=== PATIENT | male | born 1940 | race Caucasian/White ===

== ENCOUNTER 2017-02-18 12:04 | Inpatient (IN) | payer MEDICARE, BC ==
[2017-02-18] MEDS ORDERED: PIPERACILLIN-TAZOBACTAM 3.375 GM in DEXTROSE/WATER 1 50ML.BAG IVPB STA (12:22)
[2017-02-18] MEDS ORDERED: ACETAMINOPHEN TAB 500 MG TAB PO STA (12:22)
[2017-02-18] MEDS: SODIUM CHLORIDE 0.9% 500 ML IV SCH ×3 (12:30→15:17)
[2017-02-18 13:22] LABS: Anisocytosis Slight; Appearance,Urine Clear (Clear); Aty Lym Flag Moderate; Bilirubin,Urine Negative (Negative); CH 31.6; CHCM 33.2; Glucose,Urine (UA) Negative (Negative); HCT 31.6 % (39.0-53.0); HDW 3.16; HGB 10.2 gm/dL (13.0-17.5); Ketones,Urine Negative (Negative); Leukocyte Esterase,Urine Negative (Negative); MCH 31.1 pg (25.0-35.0); MCHC 32.3 g/dL (31.0-37.0); MCV 96.3 fL (80.0-100.0); Macrocytosis Slight; Mean Platelet Volume 9.2; Nitrite,Urine Negative (Negative); PH, Urine 5.5 (5.0-8.0); Particle Count 1425; Protein,Urine 1+ (Negative); RBC 3.28 m/uL (4.30-5.90); RBC,Urine 1 /hpf (0-5); RDW 19.3 % (11.5-15.5); Specific Gravity,Urine 1.006 (1.001-1.035); Squamous Epithelial Cell,Urine <1 /hpf (0-4); UA Billing (MACRO vs. MICRO) MICRO; Urobilinogen,Urine <2.0 mg/dL (<2.0); WBC (Perox) 0.96; WBC,Urine 2 /hpf (0-5)
[2017-02-18 13:26] LABS: WBC 0.8 k/uL (3.8-10.6)
[2017-02-18 13:29] LABS: INR 1.7 (<1.2); Partial Thromboplastin Time 23.2 sec (22.0-30.0); Prothrombin Time 16.1 sec (9.0-12.0)
[2017-02-18 13:38] LABS: Add Differential Manual Differential
--- NOTE | 2017-02-18 14:13 | ED ---
General Adult HPI - General Chief complaint: Shortness of Breath Stated complaint: VONDA Time Seen by Provider: 02/18/17 12:07 Source: EMS Mode of arrival: EMS Limitations: no limitations - History of Present Illness Initial comments: 76-year-old gentleman with a history of lung cancer (mother fever that was greater than 103, he had a chill 0 Vicryl is his lost cancer treatment was about a week ago. Denies any headache no neck stiffness no chest pain was short winded earlier today according to the) non-at this time abdomen soft nontender no frequency urgency dysuria no sinus symptoms of TIA or CVA - Related Data Home Medications Medication Instructions Recorded Confirmed Albuterol Sulfate [Proair Hfa] 1 - 2 puff INHALATION RT-Q6H PRN 02/18/17 Demeclocycline [Declomycin] 300 mg PO BID 02/18/17 02/18/17 Metoprolol Succinate [Toprol XL] 100 mg PO DAILY 02/18/17 02/18/17 Prochlorperazine [Compazine] 10 mg PO Q6H PRN 02/18/17 02/18/17 Rivaroxaban [Xarelto] 20 mg PO W/SUPPER 02/18/17 02/18/17 Allergies Allergy/AdvReac Type Severity Reaction Status Date / Time No Known Allergies Allergy Unverified 02/18/17 13:40 Review of Systems ROS Statement: Those systems with pertinent positive or pertinent negative responses have been documented in the HPI. ROS Other: All systems not noted in ROS Statement are negative. Past Medical History Past Medical History: Cancer Additional Past Medical History / Comment(s): pt states he is unsure what his medical issues are at this time. no family present. History of Any Multi-Drug Resistant Organisms: None Reported Additional Past Surgical History / Comment(s): cx removed from right side of face in 2015 Past Psychological History: No Psychological Hx Reported Smoking Status: Former smoker Past Alcohol Use History: None Reported Past Drug Use History: None Reported General Exam - General Exam Comments Initial Comments: General: The patient is awake and alert, in mild distress but GCS is 15. He looks tired and pale Skin: Skin is warm and dry and no rashes or lesions are noted. Eye: Pupils are equal, round and reactive to light, extra-ocular movements are intact; there is normal conjunctiva bilaterally. Ears, nose, mouth and throat: There are moist mucous membranes and no oral lesions. Neck: The neck is supple, there is no tenderness , no signs of meningitis. Cardiovascular: There is a regular rate and rhythm. No murmur, rub or gallop is appreciated. Respiratory: To auscultation bilateral, respirations breath sounds bilateral, some crackles at both bases Gastrointestinal: Soft, non-distended, non-tender abdomen without masses or organomegaly noted. There is no rebound or guarding present. Bowel sounds are unremarkable. Back: There is no tenderness to palpation in the midline. There is no obvious deformity. Musculoskeletal: Noticed a area of cellulitis in the left lower extremity at the mid calf level, he is tender, H warm, is erythematous and 3+ edema around the ankles bilateral Neurological: CN II-XII intact, Cranial nerves III through XII are intact. There are no obvious motor or sensory deficits. Coordination appears grossly intact. Speech is normal. Psychiatric: Cooperative, appropriate mood & affect, normal judgment. Limitations: no limitations Course Vital Signs 02/18/17 02/18/17 02/18/17 12:32 13:38 13:41 Temperature 103.5 F H Pulse Rate 113 H 97 Respiratory 23 23 24 Rate Blood Pressure 131/64 86/51 O2 Sat by Pulse 98 100 Oximetry 02/18/17 02/18/17 02/18/17 14:00 14:28 15:00 Temperature 98.8 F 98.8 F Pulse Rate 90 90 96 Respiratory 20 20 20 Rate Blood Pressure 102/62 112/59 134/83 O2 Sat by Pulse 99 100 100 Oximetry EKG Findings - EKG Comments: EKG Findings:: EKG is a sinus rhythm ventricular rate is 91 IL interval is 134 QRS duration is 96 QT/QTc is 348/428 review of this EKG reveals some ST segment depression in V4 V5 and V6 Medical Decision Making - Lab Data Result diagrams: 02/18/17 12:55 02/18/17 13:47 Lab Results 02/18/17 02/18/17 02/18/17 Range/Units 12:55 12:55 12:55 WBC 0.8 L* (3.8-10.6) k/uL RBC 3.28 L (4.30-5.90) m/uL Hgb 10.2 L (13.0-17.5) gm/dL Hct 31.6 L (39.0-53.0) % MCV 96.3 (80.0-100.0) fL MCH 31.1 (25.0-35.0) pg MCHC 32.3 (31.0-37.0) g/dL RDW 19.3 H (11.5-15.5) % Plt Count 245 (150-450) k/uL Differential Comment Anisocytosis Slight Macrocytosis Slight PT 16.1 H (9.0-12.0) sec INR 1.7 H (<1.2) APTT 23.2 (22.0-30.0) sec Sodium (137-145) mmol/L Potassium (3.5-5.1) mmol/L Chloride (98-107) mmol/L Carbon Dioxide (22-30) mmol/L Anion Gap mmol/L BUN (9-20) mg/dL Creatinine (0.66-1.25) mg/dL Est GFR (MDRD) Af Amer (>60 ml/min/1.73 sqM) Est GFR (MDRD) Non-Af (>60 ml/min/1.73 sqM) Glucose (74-99) mg/dL Plasma Lactic Acid John 6.0 H* (0.7-2.0) mmol/L Calcium (8.4-10.2) mg/dL Total Bilirubin (0.2-1.3) mg/dL AST (17-59) U/L ALT (21-72) U/L Alkaline Phosphatase (38-126) U/L Troponin I (0.000-0.034) ng/mL Total Protein (6.3-8.2) g/dL Albumin (3.5-5.0) g/dL Cortisol ug/dL Urine Color Urine Appearance (Clear) Urine pH (5.0-8.0) Ur Specific Sand[place] (1.001-1.035) Urine Protein (Negative) Urine Glucose (UA) (Negative) Urine Ketones (Negative) Urine Blood (Negative) Urine Nitrite (Negative) Urine Bilirubin (Negative) Urine Urobilinogen (<2.0) mg/dL Ur Leukocyte Esterase (Negative) Urine RBC (0-5) /hpf Urine WBC (0-5) /hpf Ur Squamous Epith Cells (0-4) /hpf 02/18/17 02/18/17 02/18/17 Range/Units 12:55 12:55 13:47 WBC (3.8-10.6) k/uL RBC (4.30-5.90) m/uL Hgb (13.0-17.5) gm/dL Hct (39.0-53.0) % MCV (80.0-100.0) fL MCH (25.0-35.0) pg MCHC (31.0-37.0) g/dL RDW (11.5-15.5) % Plt Count (150-450) k/uL Differential Comment Anisocytosis Macrocytosis PT (9.0-12.0) sec INR (<1.2) APTT (22.0-30.0) sec Sodium 145 (137-145) mmol/L Potassium 3.1 L (3.5-5.1) mmol/L Chloride 112 H (98-107) mmol/L Carbon Dioxide 21 L (22-30) mmol/L Anion Gap 12 mmol/L BUN 20 (9-20) mg/dL Creatinine 1.10 (0.66-1.25) mg/dL Est GFR (MDRD) Af Amer >60 (>60 ml/min/1.73 sqM) Est GFR (MDRD) Non-Af >60 (>60 ml/min/1.73 sqM) Glucose 116 H (74-99) mg/dL Plasma Lactic Acid John (0.7-2.0) mmol/L Calcium 8.3 L (8.4-10.2) mg/dL Total Bilirubin 0.7 (0.2-1.3) mg/dL AST 50 (17-59) U/L ALT 33 (21-72) U/L Alkaline Phosphatase 102 (38-126) U/L Troponin I 1.260 H* (0.000-0.034) ng/mL Total Protein 5.2 L (6.3-8.2) g/dL Albumin 2.6 L (3.5-5.0) g/dL Cortisol 63 ug/dL Urine Color Yellow Urine Appearance Clear (Clear) Urine pH 5.5 (5.0-8.0) Ur Specific [place] 1.006 (1.001-1.035) Urine Protein 1+ H (Negative) Urine Glucose (UA) Negative (Negative) Urine Ketones Negative (Negative) Urine Blood Trace H (Negative) Urine Nitrite Negative (Negative) Urine Bilirubin Negative (Negative) Urine Urobilinogen <2.0 (<2.0) mg/dL Ur Leukocyte Esterase Negative (Negative) Urine RBC 1 (0-5) /hpf Urine WBC 2 (0-5) /hpf Ur Squamous Epith Cells <1 (0-4) /hpf Critical Care Time Total Critical Care Time: 60 Critical Care Time: The patient will look in pretty painful and weak, she was greater than now 103 labs were reviewed and revealed neutropenia white count is 0.8 troponin is quite important one lactate SX urinalysis is normal chest x-ray was unremarkable INR is 1.7 and urinalysis is negative, liters of cellulitis of the left lower extremity is causing the sepsis patient was giving Zosyn 3.375 g elevated considering his multiple comorbidities I recommended to put him in the ICU. Then he developed hypotension at this point we take some fluids was thinking about out about suppressors but in the meanwhile blood pressure bounced monitored floor she neutropenia OB will call to everything in the past approximately antibiotics he is on no eloquent status will be heparinized him and now is Zosyn would help him with Cellulitis in the meantime we can no consult ICU will consult cardiology within her also ID Dr. Dickens consulted and will call from Dr. Bright Disposition Clinical Impression: Sepsis, Myocardial infarction, Hypotension, Pneumonia, Neutropenia Disposition: ADMITTED IP TO THIS HOSP Condition: Fair Referrals: Ray Garces DO [Primary Care Provider] - 1-2 days
--- NOTE | 2017-02-18 14:20 | XR ---
EXAMINATION TYPE: XR chest 2V DATE OF EXAM: 02/18/2017 HISTORY: Fever. REFERENCE: NONE. FINDINGS: Heart is mildly enlarged. The lungs are clear. Pleural space are clear. There is some unfol ding of the thoracic aorta. IMPRESSION: MILD CARDIOMEGALY.
[2017-02-18 14:21] LABS: ALT 33 U/L (21-72); AST 50 U/L (17-59); Alkaline Phosphatase 102 U/L (38-126); Blood Urea Nitrogen 20 mg/dL (9-20); Calcium 8.3 mg/dL (8.4-10.2); Carbon Dioxide 21 mmol/L (22-30); Chloride 112 mmol/L (98-107); Glucose 116 mg/dL (74-99); Non-African American GFR(MDRD) >60 (>60 ml/min/1.73 sqM); Potassium 3.1 mmol/L (3.5-5.1); Total Bilirubin 0.7 mg/dL (0.2-1.3); Total Protein 5.2 g/dL (6.3-8.2)
[2017-02-18 14:22] LABS: Anion Gap 12 mmol/L; Sodium 145 mmol/L (137-145)
[2017-02-18] MEDS ORDERED: SODIUM CHLORIDE 0.9% 2,000 ML IV ONE ×2 (15:21→18:42)
[2017-02-18] MEDS ORDERED: MORPHINE SULFATE 2 MG/ML SYRINGE IV PRN (15:33)
[2017-02-18] MEDS ORDERED: ACETAMINOPHEN TAB 325 MG TAB PO PRN (15:33)
[2017-02-18] MEDS ORDERED: NALOXONE 0.4 MG/ML 1 ML VIAL IV PRN (15:33)
[2017-02-18] MEDS ORDERED: ALBUTEROL INHALER 60 PUFF/8 GM INHALER INHALATION PRN (15:43)
[2017-02-18] MEDS ORDERED: PROCHLORPERAZINE 10 MG TAB PO PRN (15:43)
[2017-02-18 16:51] LABS: Glucose,Whole Blood 99 mg/dL (75-99)
[2017-02-18] MEDS ORDERED: VANCOMYCIN IV PER PHARMACY 1 EACH MISC MISCELLANE PRN (17:12)
[2017-02-18] MEDS ORDERED: HYDROmorphone 0.5 MG/0.5 ML SYRINGE IVP PRN (17:12)
[2017-02-18] MEDS ORDERED: HYDROcodone/APAP 5-325MG 1 EACH TAB PO PRN (17:12)
[2017-02-18] MEDS ORDERED: PIPERACILLIN-TAZOBACTAM 3.375 GM in DEXTROSE/WATER 1 50ML.BAG IVPB SCH (18:00)
[2017-02-18] MEDS: SODIUM CHLORIDE 0.9% 1,000 ML IV SCH (18:33)
[2017-02-18] MEDS: VANCOMYCIN 1,500 MG in SODIUM CHLORIDE 0.9% 250 ML IVPB SCH (18:33)
[2017-02-18] MEDS: RIVAROXABAN 10 MG TAB PO SCH (18:34)
[2017-02-18] MEDS: DEMECLOCYCLINE 150 MG TAB PO SCH (19:58)
--- NOTE | 2017-02-18 20:41 | HP ---
HISTORY AND PHYSICAL DATE OF ADMISSION: 02/18/2017. CHIEF COMPLAINTS: Shortness of breath, cough and as well as weakness. Fever. HISTORY OF PRESENT ILLNESS: This 76-year-old gentleman with a past medical history of recently diagnosed lung cancer, history of chemotherapy from [facility], possible atrial fibrillation also, the patient apparently was found in the outpatient setting. The patient complaining of multiple symptomatology, weakness, tiredness and cough and the patient came to [facility]. Patient also had decubitus ulcer as well as foot ulcer also. The patient was found to have significant neutropenia, chemotherapy and neutropenic fever and sepsis suspected and the patient admitted for further evaluation and treatment. The patient was also found to be having elevated troponin 1.26, lactic acid was 6 and broad-spectrum IV antibiotics as well as IV fluids also. There is no history of any chest pain or palpitations. No history of headache, loss of consciousness or seizures. PAST MEDICAL HISTORY: History of recent lung cancer, history of atrial fibrillation. MEDICATIONS: Prior to admission: 1. Xarelto 20 mg supper. 2. Compazine 10 mg q.6h p.r.n. 3. Toprol-XL 100 mg p.o. daily. 4. Declomycin 300 mg p.o. b.i.d. 5. ProAir 1-2 puffs q.6h p.r.n. ALLERGIES: Allergies are none. FAMILY HISTORY: No history of heart disease or strokes in the family. SOCIAL HISTORY: Previous history of smoking. No history of current smoking or alcohol. REVIEW OF SYSTEMS: ENT: Diminished hearing and diminished vision. CARDIOVASCULAR: No angina. Respiration: As mentioned earlier. GASTROINTESTINAL: As mentioned earlier. : No dysuria. Nervous system: No numbness, otherwise other generalized weakness. Allergy/Immunology: No asthma or hayfever. Musculoskeletal: As mentioned earlier. Hematology: As mentioned earlier. ENDOCRINE: No history of diabetes, hypothyroidism. Constitutional: As mentioned earlier. Dermatology negative and rheumatology negative. Psychiatric: As mentioned earlier. PHYSICAL EXAMINATION: Patient is alert, oriented x2. The pulse is 90, blood pressure 186/72, respiratory 20, temperature 98.8, pulse ox 99% on 4 L. HEENT: Conjunctivae normal. Oral mucosa dry. Pale. Neck is no jugular venous distention. No carotid bruit. No lymph node enlargement. Cardiovascular system: S1, S2 muffled. Respiration breath sounds diminished in the bases. A few scattered rhonchi and crackles. ABDOMEN: Soft, obese, nontender. No mass palpable. Legs bilateral leg edema. Left more than the right and left leg ulcer also present. Decubitus ulcer also present. Nervous system: Higher functions as mentioned. Moves all four extremities. Mild diffuse weakness. Lymphatics: No lymph nodes palpable in the neck, axillae or groin. Skin as mentioned earlier. LAB INVESTIGATIONS: Chest x-ray reviewed, right lung cancer, possibly. WBC 0.8, hemoglobin 10.2, sodium 140, potassium 3.9. ASSESSMENT: 1. Acute neutropenic sepsis. Severe. 2. Possible acute cellulitis of the left leg and decubitus ulcer. 3. Right lung cancer on chemotherapy. 4. Troponin 1.260, rule out acute non ST segment elevation myocardial infarction. 5. Elevated plasma lactic acidosis secondary to sepsis. 6. Hypokalemia. 7. Anemia secondary to malignancy. 8. History atrial fibrillation. 9. On Xarelto. 10.FULL CODE. RECOMMENDATIONS AND DISCUSSION: In this 76-year-old gentleman who presented with multiple complex medical issues , we will monitor the patient closely. Continue the current management and symptomatic treatment. Otherwise at this time, I recommend broad-spectrum IV antibiotics. I would recommend a combination of cefepime and vancomycin and we will continue to monitor. Cardiology evaluation and we will closely monitor the patient in ICU. Otherwise home medications will be continued. The patient had 4 L IV fluids. I would also recommend IV to run at 100 mL/hour and monitor closely. Other than that, DVT prophylaxis. Proton pump inhibitors. Guarded prognosis because of multiple complex medical issues. Further recommendations to follow. A copy of this dictation is being forwarded to Dr. Ray Paredes who is the primary physician. We will repeat the labs. We will obtain multiple cultures also. Discussed with the patient, understands and agrees. Discussed with staff. See orders for details. MMODL / IJN: [id number] / MTDD
[2017-02-18 21:17] LABS: Creatine Kinase MB 17.3 ng/mL (0.0-2.4); Troponin I 4.29 ng/mL (0.000-0.034)
[2017-02-18] MEDS ORDERED: NOREPINEPHRIN 4 MG-0.9% NS PMX 4 MG/250 ML ML IV SCH (23:30)
[2017-02-18] MEDS: CEFEPIME 2 GM in SODIUM CHLORIDE 0.9% 50 ML IVPB SCH (23:50)
[2017-02-18] MEDS: ALBUTEROL NEBULIZED 2.5 MG/3 ML INHALATION PRN (23:51)
[2017-02-19 04:06] LABS: Anisocytosis Slight; Aty Lym Flag Moderate; CH 31.1; CHCM 31.5; HCT 26.2 % (39.0-53.0); HDW 3.09; Hypochromasia Slight; MCV 99.9 fL (80.0-100.0); Macrocytosis Slight; Mean Platelet Volume 9.3; RBC 2.63 m/uL (4.30-5.90); RDW 19.1 % (11.5-15.5)
[2017-02-19 04:11] LABS: WBC 0.8 k/uL (3.8-10.6)
[2017-02-19 04:12] LABS: HGB 7.9 gm/dL (13.0-17.5)
[2017-02-19 04:24] LABS: ALT 38 U/L (21-72); AST 105 U/L (17-59); Alkaline Phosphatase 82 U/L (38-126); Anion Gap 11 mmol/L; Blood Urea Nitrogen 18 mg/dL (9-20); Calcium 7.5 mg/dL (8.4-10.2); Carbon Dioxide 18 mmol/L (22-30); Cholesterol 54 mg/dL (<200); Glucose 95 mg/dL (74-99); HDL Cholesterol 48 mg/dL (40-60); Magnesium 1.7 mg/dL (1.6-2.3); Non-African American GFR(MDRD) >60 (>60 ml/min/1.73 sqM); Sodium 150 mmol/L (137-145); Total Bilirubin 0.6 mg/dL (0.2-1.3); Total Protein 4.6 g/dL (6.3-8.2)
[2017-02-19 04:32] LABS: Add Differential Manual Differential; Manual Review Performed
[2017-02-19 04:40] LABS: Chloride 121 mmol/L (98-107); Potassium 2.4 mmol/L (3.5-5.1)
[2017-02-19] MEDS ORDERED: Potassium Replacement Protocol 1 EACH MISC MISCELLANE PRN (04:40)
[2017-02-19] MEDS ORDERED: Magnesium Replacement Protocol 1 EACH MISC MISCELLANE PRN (04:44)
[2017-02-19] MEDS: POTASSIUM CHLORIDE 10 MEQ in WATER FOR INJECTION 1 100ML.BAG IVPB SCH ×2 (05:05→06:12)
[2017-02-19] MEDS: SODIUM CHLORIDE 0.9% 1,000 ML IV SCH (05:06)
[2017-02-19 05:10] LABS: Creatine Kinase MB 50.9 ng/mL (0.0-2.4); Troponin I 12.3 ng/mL (0.000-0.034)
[2017-02-19] MEDS: MAGNESIUM SULFATE-D5W PMX 1 GM in DEXTROSE/WATER 1 100ML.BAG IVPB SCH ×2 (06:12→06:56)
[2017-02-19] MEDS: POTASSIUM CHLORIDE ER 20 MEQ TAB.ER PO SCH ×7 (06:12→23:17)
--- NOTE | 2017-02-19 08:03 | XR ---
EXAMINATION TYPE: XR chest 1V DATE OF EXAM: 02/19/2017 COMPARISON: 02/19/2017 HISTORY: Shortness of breath TECHNIQUE: Single frontal view of the chest is obtained. FINDINGS: Large area of density along the right paratracheal stripe and right hilum. This may reflec t the patient's history of underlying lung cancer and adenopathy. Subsegmental infiltrate and small e ffusion bilaterally. No pneumothorax. Heart size is prominent but stable. IMPRESSION: 1. Cardiomegaly. Large area of hypodensity along the right paratracheal stripe and hilum likely refle cts patient's history of underlying malignancy.
[2017-02-19] MEDS: CEFEPIME 2 GM in SODIUM CHLORIDE 0.9% 50 ML IVPB SCH ×3 (08:04→23:14)
[2017-02-19] MEDS ORDERED: FUROSEMIDE 10 MG/ML 4 ML VIAL IV STA ×2 (08:21→18:10)
--- NOTE | 2017-02-19 08:59 | CONS ---
CONSULTATION Mr. Cheek is a 76-year-old male who was recently diagnosed with a lung CA, has received chemotherapy recently at [facility] who fell at home. According to him, he slid off the chair. He denies any dizziness or syncope. He came into the emergency room and was febrile and subsequently his lab data showed an elevated troponin. Patient denies any prior cardiac history. He denies any history of chest discomfort. He denies any palpitation or syncope. According to him, at the [facility] they told him he had some irregular heartbeat, although details of that are not available and apparently he had a recent DVT and was started on Xarelto. He has no clear PND orthopnea and he has worsening peripheral edema compared with his baseline. He had received a large amount of fluid and pressors earlier when he came in because of finding of sepsis and hypotension. His coronary risk factors are remarkable for hypertension. He stopped smoking about 1-1/2 years ago. He is nondiabetic, no document hyperlipidemia. His medications at home included Toprol-XL 100 mg daily, Xarelto 20 mg daily, ProAir and Compazine and Declomycin. REVIEW OF SYSTEMS: RESPIRATORY SYSTEM: He has dyspnea on exertion. No recent wheezing. He has a history of lung cancer. GI SYSTEM: No recent GI bleeding. No peptic ulcer disease. He has lost a lot of weight. SYSTEM: No dysuria or hematuria. NERVOUS SYSTEM: No stroke or seizure. EXTREMITIES: He has significant discomfort in the left lower extremity. PHYSICAL EXAMINATION: A 76-year-old male. Mildly to moderately dyspneic. Blood pressure running in the 110s with a heart rate in the 90s. HEAD: Normocephalic. EYES: Sclerae nonicteric. NECK: No bruit. Lungs with few crackles and rales at the bases. HEART: Regular rate and rhythm S1, S2. No S3 with systolic murmur, ejection type. No diastolic murmur. No rub. ABDOMEN: Soft, nontender, obese. Bowel sounds. No organomegaly. EXTREMITIES: +2 edema with severe discomfort in the left lower extremity with redness noted. LAB DATA: Lab data revealed a hemoglobin on admission of 10.2, today is 7.9, white blood cell of 0.8, platelet count of 198, potassium 2.4, sodium of 150, it was 145 yesterday. BUN and creatinine of 18 and 1.1. His troponins are 1.2, 4.2, and 12.3. His alk phos is 815. His EKG revealed a sinus mechanism, rate of 97, left axis deviation. Incomplete right bundle branch block with initial EKG showed mild ST depression on the lateral leads that improved on subsequent EKG. IMPRESSION: 1. Sepsis in an immunocompromised patient, status post chemotherapy. 2. Neutropenia. 3. Non ST-segment elevation myocardial infarction. 4. History of hypertension. 5. History of deep venous thrombosis as well as probable cellulitis in the left lower extremity. 6. Lung cancer, receiving chemotherapy. 7. Fluid overload. 8. Hypotension, resolved. 9. Anemia. RECOMMENDATION: From the cardiac standpoint, I will add to his regimen a statin. I will also add a low dose of IRASEMA inhibitor. I will give him 1 dose of IV Lasix. I will continue his beta steven at a lower dose because of his borderline blood pressure. An echocardiogram with Doppler will be obtained. Unfortunately, he is not a candidate for any aggressive workup considering his overall status. The prognosis is very poor. Thank you for this consult. We will follow with you indication. MMODL / IJN: [id number] /
[2017-02-19] MEDS ORDERED: METOPROLOL SUCCINATE (ER) 100 MG TAB.ER.24H PO SCH (09:00)
[2017-02-19] MEDS ORDERED: ATORVASTATIN 40 MG TAB PO SCH (09:00)
[2017-02-19] MEDS: ATORVASTATIN 20 MG TAB PO SCH (09:41)
[2017-02-19] MEDS: METOPROLOL SUCCINATE (ER) 50 MG TAB.ER.24H PO SCH (09:41)
[2017-02-19] MEDS: DEMECLOCYCLINE 150 MG TAB PO SCH ×2 (09:44→20:07)
[2017-02-19] MEDS: FILGRASTIM-SNDZ 300 MCG/0.5 ML SYRINGE SQ SCH (09:44)
[2017-02-19] MEDS: LISINOPRIL 2.5 MG TAB PO SCH ×2 (09:44→20:03)
[2017-02-19] MEDS: PANTOPRAZOLE 40 MG/10 ML VIAL IVP SCH (09:45)
[2017-02-19] MEDS: VANCOMYCIN 1,500 MG in SODIUM CHLORIDE 0.9% 250 ML IVPB SCH (10:41)
[2017-02-19] MEDS: SODIUM CHLORIDE 0.45% 1,000 ML IV SCH (10:42)
--- NOTE | 2017-02-19 10:58 | ECHOF ---
Referral Reason:ut MEASUREMENTS -------- HEIGHT: 182.9 cm WEIGHT: 85.3 kg BP: 125/70 RVIDd: 3.9 cm (< 3.3) IVSd: 1.4 cm (0.6 - 1.1) LVIDd: 5.4 cm (3.9 - 5.3) LVPWd: 1.2 cm (0.6 - 1.1) IVSs: 1.6 cm LVIDs: 4.3 cm LVPWs: 1.2 cm LA Diam: 3.0 cm (2.7 - 3.8) Ao Diam: 3.5 cm (2.0 - 3.7) AV Cusp: 1.3 cm (1.5 - 2.6) LA Diam: 3.4 cm (2.7 - 3.8) MV EXCURSION: 22.256 mm (> 18.000) MV EF SLOPE: 88 mm/s (70 - 150) EPSS: 0.5 cm MV E Twin: 0.76 m/s MV DecT: 200 ms MV A Twin: 1.18 m/s MV E/A Ratio: 0.65 AV maxP.09 mmHg AV meanP.33 mmHg RAP: 5.00 mmHg RVSP: 24.92 mmHg FINDINGS -------- Sinus rhythm. This was a techncally difficult study with suboptimal views, , Definity utilized for enhancement of images. There is mild concentric left ventricular hypertrophy. Overall left ventricular systolic function is low-normal with, an EF between 50 - 55 %. Inferior basal Hypokinesis The right ventricle is mild to moderately enlarged. The left atrial size is normal. The right atrial size is normal. 1.5MG OF DEFINITY UTLIZED: 2 OR MORE WALL SEGMENTS NOT VISUALIZED. There is moderate aortic stenosis present. Peak/mean gradient across the Aortic Valve is 34.09mmHg / 21.33mmHg. Mild mitral annular calcification present. Mild mitral regurgitation is present. Mild tricuspid regurgitation present. There is no evidence of pulmonary hypertension. The right ventricular systolic pressure, as measured by Doppler, is 24.92mmHg. There is no pulmonic regurgitation present. The aortic root size is normal. There is no pericardial effusion. CONCLUSIONS -------- 1. This was a techncally difficult study with suboptimal views, , Definity utilized for enhancement of images. 2. Mild mitral regurgitation is present. 3. Mild tricuspid regurgitation present. 4. There is no evidence of pulmonary hypertension. 5. The right ventricular systolic pressure, as measured by Doppler, is 24.92mmHg. 6. There is no pulmonic regurgitation present. 7. The aortic root size is normal. 8. There is no pericardial effusion. 9. There is mild concentric left ventricular hypertrophy. 10. Overall left ventricular systolic function is low-normal with, an EF between 50 - 55 %. 11. Inferior basal Hypokinesis 12. The right ventricle is mild to moderately enlarged. 13. 1.5MG OF DEFINITY UTLIZED: 2 OR MORE WALL SEGMENTS NOT VISUALIZED. 14. There is moderate aortic stenosis present. 15. Peak/mean gradient across the Aortic Valve is 34.09mmHg / 21.33mmHg. 16. Mild mitral annular calcification present. CHEMICAL RECLAMATION EQUIPMENT OPERATOR: Chrystal Chacon RDCS
--- NOTE | 2017-02-19 11:15 | CONS ---
CONSULTATION DATE OF SERVICE: 02/18/2017 REASON FOR CONSULTATION: Sepsis. HISTORY OF PRESENT ILLNESS: The patient is a 76-year-old male with recent diagnosis of lung cancer , status post chemotherapy that he received at [facility]. The patient was brought in to the [facility] 02/18/2017 after apparently the patient did fall at home. The patient did mention that he slid off the chair. No clear history of any dizziness or loss of consciousness. With these symptoms, the patient was brought in to the [facility] ER where the patient was evaluated by the ER physician. On arrival to the ER, the patient did have fever of 103.5 degrees Fahrenheit. The patient did have hypertension with a systolic down to the 87 to 77. The patient workup included a low white count of 0.8, elevated lactic acid as well as troponin. The patient did have influenza that was negative. UA was negative. He did have a chest x-ray that was reported to be mild cardiomegaly. The patient noted to have swelling and redness of his left leg was diagnosed to have cellulitis. The patient was started on broad-spectrum antibiotic in the form of cefepime and vancomycin. He was then admitted to the hospital and ID was consulted for further recommendation regarding antibiotic therapy. Most of the information has been obtained from review of the chart, talking to the sister as the patient is not a very good historian to answer some of the questions , though he denies significant chest pain. No cough. No abdominal pain. No nausea, vomiting or any diarrhea. REVIEW OF SYSTEMS: Could not be reliably obtained though the positive points have been mentioned in the HPI. PAST MEDICAL HISTORY: Significant for lung cancer recently diagnosed at the [facility] and is status post chemotherapy, hypertension, hyperlipidemia. PAST SURGICAL HISTORY: Bronchoscopy with biopsy. SOCIAL HISTORY: Positive for smoking remotely. No drinking or drug use. FAMILY HISTORY: No pertinent findings noticed. ALLERGIES: No known drug allergies. MEDICATIONS: Medications include the patient is currently on Tylenol, [place], Ventolin, Lipitor, cefepime 2 gram q.8. He is on Dilaudid, Zestril, Toprol XL, lisinopril, Narcan, Protonix, Compazine, Xarelto, vancomycin pharmacy to dose. PHYSICAL EXAMINATION: On examination, blood pressure is 111/60 with a pulse of 90, temperature 98. He is 98% on 3 L nasal cannula. General description is an elderly male, lying in bed in no distress. No tachypnea or accessory muscle of respiratory use. HEENT examination shows pallor, no scleral icterus. Oral mucous membranes dry. NECK: Trachea central. No thyromegaly. LUNGS: Unlabored breathing. Clear to auscultation anteriorly. No wheeze or crackle. HEART: S1, S2 irregular. ABDOMEN: Soft, no tenderness. No guarding. Left leg did have some swelling with minimal erythema. Some superficial ulceration from ruptured blister. No fluctuation or induration. NEUROLOGICAL: Patient is awake, alert, oriented x1. Mood affect normal. LABS: Hemoglobin is 10.2, white count of 0.8. BUN of 20, creatinine 1.10. Potassium 3.1. Lactic acid 6 down to 3.7. Liver enzymes are normal. UA was negative. Chest x-ray report as mentioned above. DIAGNOSTIC IMPRESSION AND PLAN: Patient with febrile neutropenia in a patient who did have a fever of 103 degrees Fahrenheit, low white count source could be more likely left lower extremity cellulitis. The patient had no other clinical focus of infection. Chest x-ray report negative for any pneumonia. UA was negative. Abdomen was soft on clinical examination. PLAN: 1. Vancomycin pharmacy to dose target trough of 15 and cefepime will continue. 2. Gentle IV fluids. 3. We will follow up on his clinical condition and culture to further adjust medication if needed. Thank you for this consultation. Will follow this patient along with you. MMODL / IJN: [id number] / MTDD
--- NOTE | 2017-02-19 11:26 | US ---
EXAMINATION TYPE: US venous doppler duplex LE LT DATE OF EXAM: 02/19/2017 11:20 AM COMPARISON: NONE CLINICAL HISTORY: ro dvt. Left leg pain, exam done portable in ICU SIDE PERFORMED: Left TECHNIQUE: The lower extremity deep venous system is examined utilizing real time linear array sonog benjamin with graded compression, doppler sonography and color-flow sonography. VESSELS IMAGED: External Iliac Vein (EIV) Common Femoral Vein Deep Femoral Vein Greater Saphenous Vein * Femoral Vein Popliteal Vein Small Saphenous Vein * Proximal Calf Veins (* superficial vessels) Left Leg: Appears negative for DVT Left groin: multiple lymph nodes with largest measuring 2.7cm IMPRESSION: 1. No diagnostic evidence of DVT. 2. Left inguinal lymphadenopathy.
--- NOTE | 2017-02-19 12:54 | P.PN ---
Subjective Sunday failure or very pleasant gentleman was admitted for neutropenic fever and sepsis secondary to that patient also has elevated troponin for which cardiology valid the patient patient was evaluated by infectious disease as well and patient is presently on cefepime and vancomycin and patient has superficial ulceration please refer to infectious disease note. Patient is having good urine output at this time patient received Lasix today does have rhonchus breath sounds. And patient was evaluated by cardiology no further plans for any aggressive intervention at this point of time for her elevated troponins patient may have non-ST elevation myocardial infarction are elevated troponin can be chest secondary to severe sepsis. Because of severe hyponatremia patient is on half-normal saline at 50 mL per hour because of concerns of pulmonary edema Patient denied any chest pain, nausea, vomiting, abdominal pain, dysuria or focal weakness Objective - Vital Signs Vital signs: Vital Signs Temp 97.9 F 02/19/17 08:00 Pulse 87 02/19/17 10:30 Resp 32 H 02/19/17 10:30 BP 124/74 02/19/17 10:30 Pulse Ox 95 02/19/17 10:30 Intake & Output 02/18/17 02/19/17 02/19/17 18:59 06:59 18:59 Intake Total 1200 4589.25 1355 Output Total 700 3165 4150 Balance 500 1424.25 -2795 Weight 79 kg 85.4 kg 85.4 kg Intake: IV 1200 4223 325 0.9 NACL 200 1000 200 0.9 NACL bolus 1000 2998 Cefepime 2 gm In Sodium 100 Chloride 0.9% 50 ml @ 100 mls/hr IVPB Q8HR [facility] Rx# :[id number] Vancomycin 1,500 mg In 125 125 Sodium Chloride 0.9% 250 ml @ 125 mls/hr IVPB Q16H [facility] Rx#:[id number] Intake, IV Titration 66.25 330 Amount Cefepime 2 gm In Sodium 50 Chloride 0.9% 50 ml @ 100 mls/hr IVPB Q8HR [facility] Rx# :[id number] Magnesium Sulfate-D5w Pmx 100 1 gm In Dextrose/Water 1 100ml.bag @ 100 mls/hr IVPB Q1H [facility] Rx#: [id number] Norepinephrin 4 mg-0.9% 66.25 Ns Pmx 4 mg In 250 ml @ Titrate IV .Q0M [facility] Rx#: [id number] Potassium Chloride 10 meq 100 In Water For Injection 1 100ml.bag @ 100 mls/hr IVPB Q1H [facility] Rx#: [id number] Sodium Chloride 0.45% 1, 80 000 ml @ 40 mls/hr IV . Q24H [facility] Rx#:[id number] Oral 300 700 Output: Urine 700 8073 4150 Other: Voiding Method Indwelling Catheter Indwelling Catheter - Exam PHYSICAL EXAMINATION: GENERAL: The patient is alert and oriented x3, constant gurgling sounds appears to be fatigue and malaise HEENT: Pupils are round and equally reacting to light. EOMI. No scleral icterus. No conjunctival pallor. Normocephalic, atraumatic. No pharyngeal erythema. No thyromegaly. CARDIOVASCULAR: S1 and S2 present. No murmurs, rubs, or gallops. PULMONARY: I lateral diffuse rhonchus breath sounds no significant wheezing was appreciated, limited air entry into bilateral lung lewis. ABDOMEN: Soft, nontender, nondistended, normoactive bowel sounds. No palpable organomegaly. MUSCULOSKELETAL: No joint swelling or deformity. EXTREMITIES: No cyanosis, clubbing, or pedal edema. NEUROLOGICAL: Gross neurological examination did not reveal any focal deficits. SKIN: Superficial ulcerations and ruptured blister on the left leg - Labs CBC & Chem 7: 02/19/17 03:31 02/19/17 03:31 Labs: Abnormal Lab Results - Last 24 Hours (Table) 02/18/17 02/18/17 02/18/17 Range/Units 12:55 12:55 12:55 WBC 0.8 L* (3.8-10.6) k/uL RBC 3.28 L (4.30-5.90) m/uL Hgb 10.2 L (13.0-17.5) gm/dL Hct 31.6 L (39.0-53.0) % MCHC (31.0-37.0) g/dL RDW 19.3 H (11.5-15.5) % PT 16.1 H (9.0-12.0) sec INR 1.7 H (<1.2) Sodium (137-145) mmol/L Potassium (3.5-5.1) mmol/L Chloride (98-107) mmol/L Carbon Dioxide (22-30) mmol/L Glucose (74-99) mg/dL Plasma Lactic Acid John 6.0 H* (0.7-2.0) mmol/L Calcium (8.4-10.2) mg/dL AST (17-59) U/L Total Creatine Kinase (55-170) U/L CK-MB (CK-2) (0.0-2.4) ng/mL Troponin I (0.000-0.034) ng/mL Total Protein (6.3-8.2) g/dL Albumin (3.5-5.0) g/dL Urine Protein (Negative) Urine Blood (Negative) 02/18/17 02/18/17 02/18/17 Range/Units 12:55 12:55 13:47 WBC (3.8-10.6) k/uL RBC (4.30-5.90) m/uL Hgb (13.0-17.5) gm/dL Hct (39.0-53.0) % MCHC (31.0-37.0) g/dL RDW (11.5-15.5) % PT (9.0-12.0) sec INR (<1.2) Sodium (137-145) mmol/L Potassium 3.1 L (3.5-5.1) mmol/L Chloride 112 H (98-107) mmol/L Carbon Dioxide 21 L (22-30) mmol/L Glucose 116 H (74-99) mg/dL Plasma Lactic Acid John (0.7-2.0) mmol/L Calcium 8.3 L (8.4-10.2) mg/dL AST (17-59) U/L Total Creatine Kinase (55-170) U/L CK-MB (CK-2) (0.0-2.4) ng/mL Troponin I 1.260 H* (0.000-0.034) ng/mL Total Protein 5.2 L (6.3-8.2) g/dL Albumin 2.6 L (3.5-5.0) g/dL Urine Protein 1+ H (Negative) Urine Blood Trace H (Negative) 02/18/17 02/18/17 02/18/17 Range/Units 16:49 20:18 20:18 WBC (3.8-10.6) k/uL RBC (4.30-5.90) m/uL Hgb (13.0-17.5) gm/dL Hct (39.0-53.0) % MCHC (31.0-37.0) g/dL RDW (11.5-15.5) % PT (9.0-12.0) sec INR (<1.2) Sodium (137-145) mmol/L Potassium (3.5-5.1) mmol/L Chloride (98-107) mmol/L Carbon Dioxide (22-30) mmol/L Glucose (74-99) mg/dL Plasma Lactic Acid John 3.7 H* 2.5 H* (0.7-2.0) mmol/L Calcium (8.4-10.2) mg/dL AST (17-59) U/L Total Creatine Kinase 498 H (55-170) U/L CK-MB (CK-2) 17.3 H* (0.0-2.4) ng/mL Troponin I 4.290 H* (0.000-0.034) ng/mL Total Protein (6.3-8.2) g/dL Albumin (3.5-5.0) g/dL Urine Protein (Negative) Urine Blood (Negative) 02/19/17 02/19/17 02/19/17 Range/Units 03:31 03:31 03:31 WBC 0.8 L* (3.8-10.6) k/uL RBC 2.63 L (4.30-5.90) m/uL Hgb 7.9 L D (13.0-17.5) gm/dL Hct 26.2 L (39.0-53.0) % MCHC 30.0 L (31.0-37.0) g/dL RDW 19.1 H (11.5-15.5) % PT (9.0-12.0) sec INR (<1.2) Sodium 150 H (137-145) mmol/L Potassium 2.4 L* (3.5-5.1) mmol/L Chloride 121 H* (98-107) mmol/L Carbon Dioxide 18 L (22-30) mmol/L Glucose (74-99) mg/dL Plasma Lactic Acid John (0.7-2.0) mmol/L Calcium 7.5 L (8.4-10.2) mg/dL AST 105 H (17-59) U/L Total Creatine Kinase 815 H (55-170) U/L CK-MB (CK-2) 50.9 H* (0.0-2.4) ng/mL Troponin I 12.300 H* (0.000-0.034) ng/mL Total Protein 4.6 L (6.3-8.2) g/dL Albumin 2.2 L (3.5-5.0) g/dL Urine Protein (Negative) Urine Blood (Negative) Microbiology - Last 24 Hours (Table) 02/18/17 12:55 Urine Culture - Final Urine,Voided 02/18/17 17:07 Gram Stain - Preliminary Foot - Left Wound Culture - Preliminary 02/18/17 17:07 Anaerobic Culture - Preliminary Foot - Left Assessment and Plan Plan: #1 neutropenic fever and severe sepsis: Patient is on broad-spectrum antibiotics as mentioned above which will be continued. #2 elevated troponin: There is a probability of non-ST elevation myocardial infarction R 10 related to severe sepsis itself. #3 hypernatremia: Can be related to intravascular volume depletion is on half- normal saline as mentioned above. #4 lung cancer actively receiving chemotherapy leading to neutropenia #5 left leg ulcer superficial ulceration low suspicion this is causing infection #6 anemia of chronic disease #7 history of atrial fibrillation for which patient is also which is being continued
--- NOTE | 2017-02-19 13:50 | P.CNPUL ---
History of Present Illness Consult date: 02/19/17 Reason for consult: other (Sepsis, ICU management) Chief complaint: Fall History of present illness: 76 year old male presented to the ED after several falls at home. The patient could not get off the floor so his called EMS. Upon arrival to the ED, the patient was found to have a temperature of 103. He has known small cell lung cancer and has been undergoing chemotherapy at [facility]. He is supposed to have a port placed this week for his next round of chemo. He states he has had a cough for the last week, productive of velez phlegm. He also has buttocks and foot ulcers present on admission. He was transferred to the ICU due to severe sepsis and hypotension. The patient has not required levophed. He has been given multiple fluid boluses. The patient's is at bedside. Review of Systems All systems: negative 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, removed, recent chemotherapy 2 weeks ago History of Any Multi-Drug Resistant Organisms: None Reported Additional Past Surgical History / Comment(s): cx removed from right side of face in 2014, bx to left side gums, heel spur removed left heel Past Anesthesia/Blood Transfusion Reactions: No Reported Reaction Past Psychological History: No Psychological Hx Reported Smoking Status: Former smoker Past Alcohol Use History: None Reported Past Drug Use History: None Reported - Past Family History Mother Family Medical History: Diabetes Mellitus Medications and Allergies Home Medications Medication Instructions Recorded Confirmed Type Albuterol Sulfate [Proair Hfa] 1 - 2 puff INHALATION RT-Q6H PRN 02/18/17 History Demeclocycline [Declomycin] 300 mg PO BID 02/18/17 02/18/17 History Metoprolol Succinate [Toprol XL] 100 mg PO DAILY 02/18/17 02/18/17 History Prochlorperazine [Compazine] 10 mg PO Q6H PRN 02/18/17 02/18/17 History Rivaroxaban [Xarelto] 20 mg PO W/SUPPER 02/18/17 02/18/17 History Allergies Allergy/AdvReac Type Severity Reaction Status Date / Time No Known Allergies Allergy Unverified 02/18/17 13:40 Physical Exam Osteopathic Statement: *. No significant issues noted on an osteopathic structural exam other than those noted in the History and Physical/Consult. Vitals: Vital Signs Temp Pulse Resp BP Pulse Ox 02/19/17 13:00 93 31 H 115/65 86 L 02/19/17 12:00 90 28 H 120/70 97 02/19/17 11:00 87 33 H 124/67 99 02/19/17 10:30 87 32 H 124/74 95 02/19/17 10:00 87 32 H 117/65 98 02/19/17 09:30 87 31 H 118/69 97 02/19/17 09:00 86 28 H 105/63 97 02/19/17 08:30 92 23 125/70 98 02/19/17 08:00 97.9 F 93 29 H 112/67 95 02/19/17 07:30 89 27 H 119/66 98 02/19/17 07:00 90 32 H 111/60 98 02/19/17 06:30 90 30 H 113/62 98 02/19/17 06:00 89 33 H 114/64 96 02/19/17 05:30 88 33 H 113/62 98 02/19/17 05:00 90 27 H 117/66 96 02/19/17 04:30 86 22 120/70 97 02/19/17 04:00 98.6 F 84 22 114/67 97 02/19/17 03:30 85 31 H 116/66 96 02/19/17 03:00 90 25 H 133/73 96 02/19/17 02:30 89 17 108/65 97 02/19/17 02:00 93 28 H 104/65 97 02/19/17 01:30 94 25 H 109/63 97 02/19/17 01:00 101 H 32 H 103/61 96 02/19/17 00:30 102 H 32 H 96/57 96 02/19/17 00:06 103 H 36 H 81/41 93 L 02/19/17 00:01 98 02/19/17 00:00 98.5 F 106 H 30 H 81/41 96 02/18/17 23:51 93 02/18/17 23:30 105 H 28 H 81/58 95 02/18/17 23:00 85 30 H 86/57 96 02/18/17 22:30 90 32 H 80/57 97 02/18/17 22:00 93 33 H 77/58 98 02/18/17 21:30 103 H 32 H 87/60 98 02/18/17 21:00 97 36 H 97/55 98 02/18/17 20:30 96 27 H 93/55 96 02/18/17 20:00 99.6 F 104 H 28 H 97/56 98 02/18/17 19:30 100 33 H 110/61 98 02/18/17 19:00 101 H 34 H 111/63 98 02/18/17 18:48 20 02/18/17 18:30 105 H 26 H 124/64 100 02/18/17 18:00 104 H 59 H 119/65 99 02/18/17 17:30 107 H 25 H 121/69 100 02/18/17 17:10 109 H 32 H 138/56 99 02/18/17 17:00 98.3 F 110 H 26 H 138/56 100 02/18/17 16:50 107 H 25 H 127/73 98 02/18/17 16:40 114 H 29 H 02/18/17 16:00 98.8 F 98 18 131/64 100 02/18/17 15:30 109 H 20 149/72 99 02/18/17 15:00 96 20 134/83 100 02/18/17 14:28 98.8 F 90 20 112/59 100 02/18/17 14:00 98.8 F 90 20 102/62 99 02/18/17 13:41 24 02/18/17 13:38 97 23 86/51 100 Intake and Output 02/18/17 02/19/17 02/19/17 22:59 06:59 14:59 Intake Total 3724 2065.25 1355 Output Total 1975 1890 4150 Balance 1749 175.25 -2795 Intake: IV 3624 1799 325 0.9 NACL 500 700 200 0.9 NACL bolus 2999 999 Cefepime 2 gm In Sodium 100 Chloride 0.9% 50 ml @ 100 mls/hr IVPB Q8HR [facility] Rx# :[id number] Vancomycin 1,500 mg In 125 125 Sodium Chloride 0.9% 250 ml @ 125 mls/hr IVPB Q16H [facility] Rx#:[id number] Intake, IV Titration 66.25 330 Amount Cefepime 2 gm In Sodium 50 Chloride 0.9% 50 ml @ 100 mls/hr IVPB Q8HR [facility] Rx# :[id number] Magnesium Sulfate-D5w Pmx 100 1 gm In Dextrose/Water 1 100ml.bag @ 100 mls/hr IVPB Q1H [facility] Rx#: [id number] Norepinephrin 4 mg-0.9% 66.25 Ns Pmx 4 mg In 250 ml @ Titrate IV .Q0M [facility] Rx#: [id number] Potassium Chloride 10 meq 100 In Water For Injection 1 100ml.bag @ 100 mls/hr IVPB Q1H [facility] Rx#: [id number] Sodium Chloride 0.45% 1, 80 000 ml @ 40 mls/hr IV . Q24H [facility] Rx#:[id number] Oral 100 200 700 Output: Urine 1975 1890 4150 Other: Voiding Method Indwelling Catheter Indwelling Catheter Indwelling Catheter Weight 79 kg 85.4 kg 85.4 kg Patient Weight 02/20/17 06:59 Weight 85.4 kg Gen: A+OX3, NAD, appears frail CV: RRR, s1/s2 Lungs: coarse breath sounds bilaterally Abd: soft, NT/ND, +BS Ext: LLE painful to touch, bilateral edema Results - Laboratory Findings CBC and BMP: 02/19/17 03:31 02/19/17 03:31 PT/INR, D-dimer PT 16.1 sec (9.0-12.0) H 02/18/17 12:55 INR 1.7 (<1.2) H 02/18/17 12:55 Abnormal lab findings: Abnormal Labs 02/18/17 02/18/17 02/18/17 12:55 12:55 12:55 WBC 0.8 L* RBC 3.28 L Hgb 10.2 L Hct 31.6 L MCHC RDW 19.3 H PT 16.1 H INR 1.7 H Sodium Potassium Chloride Carbon Dioxide Glucose Plasma Lactic Acid John 6.0 H* Calcium AST Total Creatine Kinase CK-MB (CK-2) Troponin I Total Protein Albumin Urine Protein Urine Blood 02/18/17 02/18/17 02/18/17 12:55 12:55 13:47 WBC RBC Hgb Hct MCHC RDW PT INR Sodium Potassium 3.1 L Chloride 112 H Carbon Dioxide 21 L Glucose 116 H Plasma Lactic Acid John Calcium 8.3 L AST Total Creatine Kinase CK-MB (CK-2) Troponin I 1.260 H* Total Protein 5.2 L Albumin 2.6 L Urine Protein 1+ H Urine Blood Trace H 02/18/17 02/18/17 02/18/17 16:49 20:18 20:18 WBC RBC Hgb Hct MCHC RDW PT INR Sodium Potassium Chloride Carbon Dioxide Glucose Plasma Lactic Acid John 3.7 H* 2.5 H* Calcium AST Total Creatine Kinase 498 H CK-MB (CK-2) 17.3 H* Troponin I 4.290 H* Total Protein Albumin Urine Protein Urine Blood 02/19/17 02/19/17 02/19/17 03:31 03:31 03:31 WBC 0.8 L* RBC 2.63 L Hgb 7.9 L D Hct 26.2 L MCHC 30.0 L RDW 19.1 H PT INR Sodium 150 H Potassium 2.4 L* Chloride 121 H* Carbon Dioxide 18 L Glucose Plasma Lactic Acid John Calcium 7.5 L AST 105 H Total Creatine Kinase 815 H CK-MB (CK-2) 50.9 H* Troponin I 12.300 H* Total Protein 4.6 L Albumin 2.2 L Urine Protein Urine Blood - Diagnostic Findings Chest x-ray: report reviewed, image reviewed Assessment and Plan Plan: Severe sepsis Lactic acidosis NAGMA Neutropenic fever Anemia SCLC Immunosuppressed due to chemotherapy s/p Fall at home Buttock and foot ulcer POA Hypernatremia, likely secondary to fluid resuscitation Afib, now rate controlled NSTEMI Bilateral lower extremity edema Inguinal lymphadenopathy O2 to maintain sat > or = 90% Blood, urine, sputum cultures ABX per ID Isolation precautions Hold IVF for now, patient given Lasix Monitor Na, change IVF to .45 Protein shakes Lactobacillus PT and OT Incentive spirometry and pulmonary hygiene Replace Mg, K Serial labs Rate control per cardio Echocardiogram GI and DVT prophylaxis Thank you for this consultation. We will continue to follow along.
[2017-02-19 14:35] LABS: Anisocytosis Slight; CH 30.1; CHCM 30.4; HCT 30.3 % (39.0-53.0); HGB 9.3 gm/dL (13.0-17.5); Hypochromasia Marked; Immature Gran Flag Moderate; MCH 30.6 pg (25.0-35.0); MCHC 30.6 g/dL (31.0-37.0); MCV 100.1 fL (80.0-100.0); Macrocytosis Slight; Mean Platelet Volume 8.8; RBC 3.03 m/uL (4.30-5.90); RDW 18.5 % (11.5-15.5)
[2017-02-19 14:40] LABS: WBC 1.3 k/uL (3.8-10.6)
[2017-02-19 14:58] LABS: Add Differential Manual Differential
[2017-02-19 15:05] LABS: Band Neutrophils % 3 %; Metamyelocytes % 1 %; Myelocytes % 5 %; Nucleated Red Blood Cells 1 /100 WBC (0-0); Total Cells Counted 100
[2017-02-19 15:10] LABS: Polychromasia Present
[2017-02-19] MEDS: ALBUTEROL NEBULIZED 2.5 MG/3 ML INHALATION PRN (16:00)
[2017-02-19 16:13] LABS: ALT 36 U/L (21-72); AST 117 U/L (17-59); Alkaline Phosphatase 75 U/L (38-126); Anion Gap 8 mmol/L; Blood Urea Nitrogen 19 mg/dL (9-20); Calcium 7.8 mg/dL (8.4-10.2); Carbon Dioxide 26 mmol/L (22-30); Glucose 155 mg/dL (74-99); Non-African American GFR(MDRD) >60 (>60 ml/min/1.73 sqM); Sodium 154 mmol/L (137-145); Total Bilirubin 0.5 mg/dL (0.2-1.3)
[2017-02-19 16:19] LABS: Potassium 2.8 mmol/L (3.5-5.1)
[2017-02-19 16:20] LABS: Chloride 120 mmol/L (98-107)
[2017-02-19] MEDS ORDERED: POTASSIUM CHLORIDE 10 MEQ in WATER FOR INJECTION 1 100ML.BAG IVPB SCH (16:30)
[2017-02-19] MEDS ORDERED: POTASSIUM CHLORIDE 10 MEQ, LIDOCAINE 2% INJ 10 MG in SODIUM CHLORIDE 0.9% 100 ML IV SCH (17:00)
[2017-02-19] MEDS: FAMOTIDINE 20 MG TAB PO SCH (17:05)
[2017-02-19] MEDS: RIVAROXABAN 10 MG TAB PO SCH (18:12)
[2017-02-19] MEDS: LACTOBACILLUS ACIDOPH & BULGAR 1 EACH PACKET PO SCH (20:10)
--- NOTE | 2017-02-19 22:53 | P.CONS ---
History of Present Illness - Reason for Consult Consult date: 02/19/17 neutropenic sepsis. Small cell lung cancer on chemotherapy - History of Present Illness Mister Cheek is a 76-year-old gentleman who had presented who the [facility], in late 12/28, complaining of 40 pound weight loss, as well as progressive weakness, and appetite loss. Symptoms had been progressive over the last month. Initial CT scan showed a large hilar mass, R 12.28.8 cm on the right, along with extensive mediastinal , supraclavicular and hilar adenopathy. PET scan on 01/16/17 revealed uptake in these areas, as well as diffuse metastatic disease in the skeletal system, and liver. He had needle biopsy of supraclavicular node on 01/16/17, confirming small cell cancer. he presented back on 02/02/17, complaining now of progressive lower Extremity swelling, as well as neck and facial swelling. he was started on chemotherapy on 02/03/17 receiving carboplatin on day 1, along with oral etoposide. He was then discharged, and seen by Dr. Pedroza on 02/14/17 to establish care locally. WBC was low at 0.4 on the day the patient continued to be somewhat weak. His family called EMS, as he fell out of his chair, and appeared to be short of breath. He initially refused to go to the hospital, but the family called EMS back, as he continued to be very weak and short of breath. In the ER, he was noted to be severely neutropenic, at 0.8, with hemoglobin of 7.9. He had a temperature of 103.5, heart rate greater than 100, as well as elevated respiratory rate, with oxygen saturation only in the low 80s on room air. He was therefore admitted to the ICU for further management. Review of Systems Constitutional: Reports poor appetite, Reports weakness, Reports weight loss Eyes: denies blurred vision, denies pain Ears, nose, mouth and throat: Reports as per HPI ( Neck and facial swelling resolved mostly after chemotherapy), Denies headache, Denies sore throat Cardiovascular: Reports palpitations, Denies shortness of breath Respiratory: Reports dyspnea Gastrointestinal: Denies abdominal pain, Denies diarrhea, Denies nausea, Denies vomiting Genitourinary: Reports as per HPI Musculoskeletal: Reports muscle weakness Integumentary: Denies pruritus, Denies rash Neurological: Reports weakness Psychiatric: Denies anxiety, Denies depression Endocrine: Reports fatigue, Reports weight change Hematologic/Lymphatic: Reports lymphadenopathy, Denies as per HPI 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, removed, recent chemotherapy 2 weeks ago History of Any Multi-Drug Resistant Organisms: None Reported Additional Past Surgical History / Comment(s): cx removed from right side of face in 2014, bx to left side gums, heel spur removed left heel Past Anesthesia/Blood Transfusion Reactions: No Reported Reaction Past Psychological History: No Psychological Hx Reported Smoking Status: Former smoker Past Alcohol Use History: None Reported Past Drug Use History: None Reported - Past Family History Mother Family Medical History: Diabetes Mellitus Medications and Allergies Home Medications Medication Instructions Recorded Confirmed Type Albuterol Sulfate [Proair Hfa] 1 - 2 puff INHALATION RT-Q6H PRN 02/18/17 History Demeclocycline [Declomycin] 300 mg PO BID 02/18/17 02/18/17 History Metoprolol Succinate [Toprol XL] 100 mg PO DAILY 02/18/17 02/18/17 History Prochlorperazine [Compazine] 10 mg PO Q6H PRN 02/18/17 02/18/17 History Rivaroxaban [Xarelto] 20 mg PO W/SUPPER 02/18/17 02/18/17 History Allergies Allergy/AdvReac Type Severity Reaction Status Date / Time No Known Allergies Allergy Unverified 02/18/17 13:40 Physical Exam Vitals: Vital Signs Temp Pulse Resp BP Pulse Ox 02/19/17 18:00 116 H 21 127/70 84 L 02/19/17 17:00 104 H 27 H 113/67 92 L 02/19/17 16:18 108 H 02/19/17 16:00 98.4 F 103 H 34 H 128/70 94 L 02/19/17 15:00 98 40 H 114/63 93 L 02/19/17 14:00 100 27 H 128/67 93 L 02/19/17 13:00 93 31 H 115/65 86 L 02/19/17 12:00 90 28 H 120/70 97 02/19/17 11:00 87 33 H 124/67 99 02/19/17 10:30 87 32 H 124/74 95 02/19/17 10:00 87 32 H 117/65 98 02/19/17 09:30 87 31 H 118/69 97 02/19/17 09:00 86 28 H 105/63 97 02/19/17 08:30 92 23 125/70 98 02/19/17 08:00 97.9 F 93 29 H 112/67 95 02/19/17 07:30 89 27 H 119/66 98 02/19/17 07:00 90 32 H 111/60 98 02/19/17 06:30 90 30 H 113/62 98 02/19/17 06:00 89 33 H 114/64 96 02/19/17 05:30 88 33 H 113/62 98 02/19/17 05:00 90 27 H 117/66 96 02/19/17 04:30 86 22 120/70 97 02/19/17 04:00 98.6 F 84 22 114/67 97 02/19/17 03:30 85 31 H 116/66 96 02/19/17 03:00 90 25 H 133/73 96 02/19/17 02:30 89 17 108/65 97 02/19/17 02:00 93 28 H 104/65 97 02/19/17 01:30 94 25 H 109/63 97 02/19/17 01:00 101 H 32 H 103/61 96 02/19/17 00:30 102 H 32 H 96/57 96 02/19/17 00:06 103 H 36 H 81/41 93 L 02/19/17 00:01 98 02/19/17 00:00 98.5 F 106 H 30 H 81/41 96 02/18/17 23:51 93 02/18/17 23:30 105 H 28 H 81/58 95 02/18/17 23:00 85 30 H 86/57 96 02/18/17 22:30 90 32 H 80/57 97 Intake and Output 02/19/17 02/19/17 02/19/17 06:59 14:59 22:59 Intake Total 2065.25 1840 690 Output Total 1890 6550 1350 Balance 175.79 -2565 -999 Intake: IV 1799 450 0.9 NACL 700 200 0.9 NACL bolus 999 Cefepime 2 gm In Sodium 100 Chloride 0.9% 50 ml @ 100 mls/hr IVPB Q8HR [facility] Rx# :[id number] Vancomycin 1,500 mg In 250 Sodium Chloride 0.9% 250 ml @ 125 mls/hr IVPB Q16H [facility] Rx#:[id number] Intake, IV Titration 66.25 450 210 Amount Cefepime 2 gm In Sodium 50 50 Chloride 0.9% 50 ml @ 100 mls/hr IVPB Q8HR [facility] Rx# :[id number] Magnesium Sulfate-D5w Pmx 100 1 gm In Dextrose/Water 1 100ml.bag @ 100 mls/hr IVPB Q1H [facility] Rx#: [id number] Norepinephrin 4 mg-0.9% 66.25 Ns Pmx 4 mg In 250 ml @ Titrate IV .Q0M [facility] Rx#: [id number] Potassium Chloride 10 meq 100 In Water For Injection 1 100ml.bag @ 100 mls/hr IVPB Q1H [facility] Rx#: [id number] Sodium Chloride 0.45% 1, 200 160 000 ml @ 40 mls/hr IV . Q24H [facility] Rx#:[id number] Oral 200 940 480 Output: Urine 1890 6550 1350 Other: Voiding Method Indwelling Catheter Indwelling Catheter Indwelling Catheter Weight 85.4 kg 85.4 kg Patient Weight 02/20/17 06:59 Weight 85.4 kg - Constitutional General appearance: no mild distress - EENT Eyes: EOMI, PERRLA ENT: hearing grossly normal, normal oropharynx - Neck Neck: no lymphadenopathy Thyroid: bilateral: normal size - Respiratory Respiratory: bilateral: CTA - Cardiovascular Rhythm: regular Heart sounds: normal: S1, S2 - Gastrointestinal General gastrointestinal: normal bowel sounds, soft - Integumentary Integumentary: normal - Neurologic Neurologic: CNII-XII intact - Musculoskeletal Musculoskeletal: generalized weakness, no strength equal bilaterally - Psychiatric Psychiatric: A&O x's 3, appropriate affect Results CBC & Chem 7: 02/19/17 13:58 02/19/17 15:22 Labs: Abnormal Lab Results - Last 24 Hours (Table) 02/19/17 02/19/17 02/19/17 Range/Units 03:31 03:31 03:31 WBC 0.8 L* (3.8-10.6) k/uL RBC 2.63 L (4.30-5.90) m/uL Hgb 7.9 L D (13.0-17.5) gm/dL Hct 26.2 L (39.0-53.0) % MCV (80.0-100.0) fL MCHC 30.0 L (31.0-37.0) g/dL RDW 19.1 H (11.5-15.5) % Neutrophils # (Manual) (1.3-7.7) k/uL Lymphocytes # (Manual) (1.0-4.8) k/uL Metamyelocytes # (Man) (0) k/uL Myelocytes # (Manual) (0) k/uL Nucleated RBCs (0-0) /100 WBC Sodium 150 H (137-145) mmol/L Potassium 2.4 L* (3.5-5.1) mmol/L Chloride 121 H* (98-107) mmol/L Carbon Dioxide 18 L (22-30) mmol/L Glucose (74-99) mg/dL Calcium 7.5 L (8.4-10.2) mg/dL AST 105 H (17-59) U/L Total Creatine Kinase 815 H (55-170) U/L CK-MB (CK-2) 50.9 H* (0.0-2.4) ng/mL Troponin I 12.300 H* (0.000-0.034) ng/mL Total Protein 4.6 L (6.3-8.2) g/dL Albumin 2.2 L (3.5-5.0) g/dL 02/19/17 02/19/17 Range/Units 13:58 15:22 WBC 1.3 L* (3.8-10.6) k/uL RBC 3.03 L (4.30-5.90) m/uL Hgb 9.3 L (13.0-17.5) gm/dL Hct 30.3 L (39.0-53.0) % MCV 100.1 H (80.0-100.0) fL MCHC 30.6 L (31.0-37.0) g/dL RDW 18.5 H (11.5-15.5) % Neutrophils # (Manual) 0.20 L (1.3-7.7) k/uL Lymphocytes # (Manual) 0.65 L (1.0-4.8) k/uL Metamyelocytes # (Man) 0.01 H (0) k/uL Myelocytes # (Manual) 0.07 H (0) k/uL Nucleated RBCs 1 H (0-0) /100 WBC Sodium 154 H (137-145) mmol/L Potassium 2.8 L* (3.5-5.1) mmol/L Chloride 120 H* (98-107) mmol/L Carbon Dioxide (22-30) mmol/L Glucose 155 H (74-99) mg/dL Calcium 7.8 L (8.4-10.2) mg/dL AST 117 H (17-59) U/L Total Creatine Kinase (55-170) U/L CK-MB (CK-2) (0.0-2.4) ng/mL Troponin I (0.000-0.034) ng/mL Total Protein 5.0 L (6.3-8.2) g/dL Albumin 2.4 L (3.5-5.0) g/dL Microbiology - Last 24 Hours (Table) 02/18/17 13:14 Blood Culture - Preliminary Blood No Growth after 24 hours 02/18/17 12:55 Blood Culture - Preliminary Blood No Growth after 24 hours 02/18/17 12:55 Urine Culture - Final Urine,Voided 02/18/17 17:07 Gram Stain - Preliminary Foot - Left Wound Culture - Preliminary 02/18/17 17:07 Anaerobic Culture - Preliminary Foot - Left Chest x-ray: report reviewed Venous US: report reviewed Assessment and Plan (1) Neutropenic sepsis Narrative/Plan: the patient's presentation is quite typical of sepsis, in the setting of neutropenia, which is due to chemotherapy. He was therefore admitted to the ICU. He is currently being aggressively supported with IV fluids, as well as broad-spectrum antibiotics. Growth factors have been started, and white blood cell count is showing improvement. fever has resolved. Clinical condition is expected to improve, as WBC recovers. ICU management per the admitting service, and critical care medicine Status: Acute (2) Bicytopenia Narrative/Plan: due to antineoplastic chemotherapy. WBC is being supported with growth factors. Hemoglobin is in a safe range and does not require transfusion today. Continue to monitor and transfuse as needed Status: Acute (3) Small cell lung cancer Narrative/Plan: the patient has widely metastatic disease with therapeutic and diagnostic circumstances as noted . he has completed 1 cycle of chemotherapy. He appears to have had a clinical response, with resolution of SVC symptoms. Lower extremity swelling still persists. cycle #2 is due to start on . This will likely need to be delayed, so that the acute condition can resolve adequately. Status: Acute
[2017-02-20] MEDS: POTASSIUM CHLORIDE ER 20 MEQ TAB.ER PO SCH ×5 (00:18→08:35)
[2017-02-20] MEDS: VANCOMYCIN 1,500 MG in SODIUM CHLORIDE 0.9% 250 ML IVPB SCH ×2 (02:19→17:55)
[2017-02-20] MEDS ORDERED: METOPROLOL TARTRATE 25 MG TAB PO STA (04:14)
[2017-02-20 05:13] LABS: ALT 41 U/L (21-72); AST 85 U/L (17-59); Alkaline Phosphatase 88 U/L (38-126); Anion Gap 11 mmol/L; Blood Urea Nitrogen 21 mg/dL (9-20); Calcium 8.6 mg/dL (8.4-10.2); Carbon Dioxide 24 mmol/L (22-30); Chloride 118 mmol/L (98-107); Glucose 107 mg/dL (74-99); Magnesium 2.1 mg/dL (1.6-2.3); Non-African American GFR(MDRD) >60 (>60 ml/min/1.73 sqM); Sodium 153 mmol/L (137-145); Total Bilirubin 0.8 mg/dL (0.2-1.3); Total Protein 5.1 g/dL (6.3-8.2)
[2017-02-20 05:30] LABS: Anisocytosis Slight; CH 30.3; CHCM 30.3; HCT 31.3 % (39.0-53.0); HDW 3.07; HGB 9.7 gm/dL (13.0-17.5); Hypochromasia Marked; Immature Gran Flag Slight; MCH 31.4 pg (25.0-35.0); MCHC 31.1 g/dL (31.0-37.0); MCV 100.8 fL (80.0-100.0); Macrocytosis Slight; Mean Platelet Volume 9.3; RDW 18.1 % (11.5-15.5); WBC (Perox) 2.27
[2017-02-20 05:35] LABS: Potassium 2.8 mmol/L (3.5-5.1)
--- NOTE | 2017-02-20 05:48 | PN ---
PROGRESS NOTE DATE OF SERVICE: 02/19/2017 REASON FOR FOLLOWUP: Sepsis and left lower extremity cellulitis. INTERVAL HISTORY: The patient is afebrile. He is hemodynamically stable. Did require Levophed for short duration over night off this morning. The patient has been breathing comfortably. He did have a cough, but not bring up any sputum. No abdominal pain or any worsening pain in his left leg area. PHYSICAL EXAMINATION: On examination, blood pressure 128/70 with a pulse of 103, temperature 98.4. He is 94% on 6 L nasal cannula. General description is an elderly male lying in bed in no distress. RESPIRATORY SYSTEM: Unlabored breathing. Coarse breath sounds bilaterally. HEART: S1, S2. Regular rate and rhythm. ABDOMEN: Soft, no tenderness. Left leg swelling persists, redness has decreased. The patient did have a stage II sacral pressure ulcer with no evidence of any cellulitis. LABS: Hemoglobin is 9.3, white count 1.3. BUN of 19, creatinine is 1.11. Culture so far negative. DIAGNOSTIC IMPRESSION AND PLAN: Patient admitted to the hospital with sepsis, source is likely multifactorial and the patient did have left lower extremity cellulitis with diffuse swelling, redness , could be more likely streptococal disease with no evidence of any abscess. A stage II pressure ulcer, which is not infected. He will continue current broad-spectrum antibiotic while waiting for the culture to finalize in the form of cefepime and vancomycin. As far as local wound care, recommend Aquacel Silver dressing and keep the area off the pressure. was present at the bedside. Her questions and concerns were answered. MMODL / IJN: [id number] / KELI
[2017-02-20] MEDS: ALBUTEROL NEBULIZED 2.5 MG/3 ML INHALATION PRN ×2 (07:14→11:08)
[2017-02-20 07:58] LABS: Add Differential Manual Differential
[2017-02-20 08:03] LABS: Band Neutrophils % 4 %; Metamyelocytes % 1 %; Nucleated Red Blood Cells 6 /100 WBC (0-0); Total Cells Counted 200
[2017-02-20 08:04] LABS: Polychromasia Present
[2017-02-20 08:05] LABS: Large Platelets Present; Manual Review Performed
--- NOTE | 2017-02-20 08:29 | XR ---
EXAMINATION TYPE: XR chest 1V DATE OF EXAM: 02/20/2017 COMPARISON: Prior chest x-ray 02/19/2017 HISTORY: Shortness of breath TECHNIQUE: Single frontal view of the chest is obtained. FINDINGS: Right paratracheal density is again noted. The heart is likely enlarged. There is probably a small left pleural effusion and associated atelectasis. Thoracic aorta appears somewhat prominentl y although patient is rotated. There are overlying cardiac leads. IMPRESSION: Findings compatible with patient's history of lung cancer. Additional findings above.
[2017-02-20] MEDS: CEFEPIME 2 GM in SODIUM CHLORIDE 0.9% 50 ML IVPB SCH ×2 (08:32→16:55)
[2017-02-20] MEDS: ATORVASTATIN 20 MG TAB PO SCH (08:35)
[2017-02-20] MEDS: PANTOPRAZOLE 40 MG/10 ML VIAL IVP SCH (08:37)
[2017-02-20] MEDS: METOPROLOL SUCCINATE (ER) 50 MG TAB.ER.24H PO SCH ×2 (08:37→09:32)
[2017-02-20] MEDS: DEMECLOCYCLINE 150 MG TAB PO SCH (08:37)
[2017-02-20] MEDS: LACTOBACILLUS ACIDOPH & BULGAR 1 EACH PACKET PO SCH ×2 (08:38→20:42)
[2017-02-20] MEDS ORDERED: FUROSEMIDE 10 MG/ML 4 ML VIAL IV STA (08:51)
[2017-02-20] MEDS ORDERED: LISINOPRIL 2.5 MG TAB PO SCH (09:00)
[2017-02-20] MEDS: ASPIRIN 81 MG PO SCH (09:18)
--- NOTE | 2017-02-20 09:24 | PN ---
PROGRESS NOTE Mr. Cheek is a 76-year-old male with history of small cell CA, who presented with weakness and was found to have evidence of myocardial infarction by enzymatic abnormalities. He was also septic and febrile. He is feeling better today. He still has discomfort in the left lower extremity. His breathing has been stable. He denies any dizziness or palpitation. He denies any nausea. He has received intravenous diuresis and has diuresed. His urine output has been stable over 30 mL an hour. He has continued to be on Lipitor 20 mg daily, lisinopril 2.5 mg daily, metoprolol succinate 50 mg daily, Xarelto 20 mg daily. He had a short burst of atrial fibrillation yesterday, but remains in sinus mechanism. His blood pressure is running in the 90s with the heart rate in the 90s. LUNGS: A few crackles at the bases. HEART: Regular rate and rhythm. S1, S2. No S3. Systolic murmur at the base. ABDOMEN: Soft, nontender. EXTREMITIES: +1 edema bilaterally with erythema and tenderness on the left lower extremity. LAB DATA: Lab data revealed a potassium 2.8, BUN creatinine 21 and 1.0, sodium of 153. His chloride is 118. His troponin is 12.3. Hemoglobin of 9.7, white blood cell of 2.0, which have improved compared with yesterday. His echocardiogram showed ejection fraction of 50% to 55% with inferobasal wall hypokinesis with no significant valvular abnormalities. IMPRESSION: 1. Sepsis in an immunocompromised patient, status post chemotherapy for small cell carcinoma of the lung. 2. Non ST-segment elevation myocardial infarction. 3. Paroxysmal atrial fibrillation. 4. Hypertension. 5. Anemia, stabilizing. 6. Neutropenia. RECOMMENDATION: From the cardiac standpoint, I will give him another dose of IV Lasix. I will start him on low-dose aspirin. Continue the rest of his medical regimen and depending on his progress, further recommendation will be made. Unfortunately, the prognosis remains guarded. MMODL / IJN: [id number] /
[2017-02-20] MEDS: FILGRASTIM-SNDZ 300 MCG/0.5 ML SYRINGE SQ SCH (09:58)
--- NOTE | 2017-02-20 12:26 | P.PN ---
Subjective Progress Note Date: 02/20/17 Principal diagnosis: Septic shock Patient seen and examined in the ICU with nursing staff at bedside. The patient has not required levophed over night. His BP is marginal, however, MAP is currently 69. He is on 6L NC. He states he is feeling better. The patient has a decubitus ulcer and skin tear on his buttocks, decubitus ulcer on his heel , and his foot. He has been given lasix with adequate urine output. He has not had fevers. Nursing has no issues or complaints at this time. Objective - Vital Signs Vital signs: Vital Signs Temp 97.9 F 02/20/17 08:00 Pulse 90 02/20/17 11:23 Resp 22 02/20/17 11:00 BP 94/47 02/20/17 11:00 Pulse Ox 93 L 02/20/17 11:00 Intake & Output 02/19/17 02/20/17 02/20/17 18:59 06:59 18:59 Intake Total 2530 1170 540 Output Total 7900 2885 945 Balance -5361 -1715 -405 Weight 85.4 kg 99 kg Intake: IV 450 350 100 0.9 NACL 200 Cefepime 2 gm In Sodium 100 100 Chloride 0.9% 50 ml @ 100 mls/hr IVPB Q8HR [facility] Rx# :[id number] Vancomycin 1,500 mg In 250 250 Sodium Chloride 0.9% 250 ml @ 125 mls/hr IVPB Q16H [facility] Rx#:[id number] Intake, IV Titration 660 320 200 Amount Cefepime 2 gm In Sodium 100 Chloride 0.9% 50 ml @ 100 mls/hr IVPB Q8HR [facility] Rx# :[id number] Magnesium Sulfate-D5w Pmx 100 1 gm In Dextrose/Water 1 100ml.bag @ 100 mls/hr IVPB Q1H [facility] Rx#: [id number] Potassium Chloride 10 meq 100 In Water For Injection 1 100ml.bag @ 100 mls/hr IVPB Q1H [facility] Rx#: [id number] Sodium Chloride 0.45% 1, 360 320 200 000 ml @ 40 mls/hr IV . Q24H [facility] Rx#:[id number] Oral 1420 500 240 Output: Urine 7900 2885 945 Other: Voiding Method Indwelling Catheter Indwelling Catheter Indwelling Catheter - Exam Gen: A+OX3, NAD, appears frail CV: RRR, s1/s2 Lungs: coarse breath sounds bilaterally Abd: soft, NT/ND, +BS Ext: LLE painful to touch, bilateral edema - Labs CBC & Chem 7: 02/20/17 04:03 02/20/17 04:03 Labs: Abnormal Lab Results - Last 24 Hours (Table) 02/19/17 02/19/17 02/19/17 Range/Units 13:58 15:22 21:47 WBC 1.3 L* (3.8-10.6) k/uL RBC 3.03 L (4.30-5.90) m/uL Hgb 9.3 L (13.0-17.5) gm/dL Hct 30.3 L (39.0-53.0) % MCV 100.1 H (80.0-100.0) fL MCHC 30.6 L (31.0-37.0) g/dL RDW 18.5 H (11.5-15.5) % Neutrophils # (Manual) 0.20 L (1.3-7.7) k/uL Lymphocytes # (Manual) 0.65 L (1.0-4.8) k/uL Metamyelocytes # (Man) 0.01 H (0) k/uL Myelocytes # (Manual) 0.07 H (0) k/uL Nucleated RBCs 1 H (0-0) /100 WBC Sodium 154 H (137-145) mmol/L Potassium 2.8 L* 2.9 L* (3.5-5.1) mmol/L Chloride 120 H* (98-107) mmol/L BUN (9-20) mg/dL Glucose 155 H (74-99) mg/dL Calcium 7.8 L (8.4-10.2) mg/dL AST 117 H (17-59) U/L Total Protein 5.0 L (6.3-8.2) g/dL Albumin 2.4 L (3.5-5.0) g/dL 02/20/17 02/20/17 Range/Units 04:03 04:03 WBC 2.0 L* (3.8-10.6) k/uL RBC 3.10 L (4.30-5.90) m/uL Hgb 9.7 L (13.0-17.5) gm/dL Hct 31.3 L (39.0-53.0) % MCV 100.8 H (80.0-100.0) fL MCHC (31.0-37.0) g/dL RDW 18.1 H (11.5-15.5) % Neutrophils # (Manual) 1.20 L (1.3-7.7) k/uL Lymphocytes # (Manual) 0.60 L (1.0-4.8) k/uL Metamyelocytes # (Man) 0.02 H (0) k/uL Myelocytes # (Manual) (0) k/uL Nucleated RBCs 6 H (0-0) /100 WBC Sodium 153 H (137-145) mmol/L Potassium 2.8 L* (3.5-5.1) mmol/L Chloride 118 H (98-107) mmol/L BUN 21 H (9-20) mg/dL Glucose 107 H (74-99) mg/dL Calcium (8.4-10.2) mg/dL AST 85 H (17-59) U/L Total Protein 5.1 L (6.3-8.2) g/dL Albumin 2.4 L (3.5-5.0) g/dL Microbiology - Last 24 Hours (Table) 02/18/17 13:14 Blood Culture - Preliminary Blood No Growth after 24 hours 02/18/17 12:55 Blood Culture - Preliminary Blood No Growth after 24 hours 02/18/17 12:55 Urine Culture - Final Urine,Voided Assessment and Plan Plan: Severe sepsis, septic shock Lactic acidosis NAGMA Neutropenic fever Anemia SCLC Immunosuppressed due to chemotherapy s/p Fall at home Buttock, heel, and foot ulcer POA Hypernatremia, likely secondary to fluid resuscitation Afib, now rate controlled NSTEMI Bilateral lower extremity edema Inguinal lymphadenopathy O2 to maintain sat > or = 90% Blood, urine, sputum cultures ABX per ID Isolation precautions Continue Lasix BID for now, reassess daily Monitor Na, change IVF to .45 Protein shakes Lactobacillus PT and OT Incentive spirometry and pulmonary hygiene Replace Mg, K Serial labs Rate control per cardio GI and DVT prophylaxis Hold Lisinopril and Lopressor for now due to hypotension
[2017-02-20] MEDS ORDERED: ALBUMIN HUMAN 25% 50 ML in EMPTY BAG 1 BAG IVPB ONE ×2 (12:37→14:42)
[2017-02-20] MEDS ORDERED: DIGOXIN 250 MCG/ML 2 ML AMP IVP SCH (13:00)
[2017-02-20] MEDS: SODIUM CHLORIDE 0.45% 1,000 ML IV SCH ×2 (13:12→15:05)
[2017-02-20] MEDS: POTASSIUM CHLORIDE 10 MEQ, LIDOCAINE 2% INJ 10 MG in SODIUM CHLORIDE 0.9% 100 ML IV SCH ×4 (13:53→23:49)
--- NOTE | 2017-02-20 14:41 | P.PN ---
Subjective very pleasant gentleman was admitted for neutropenic fever and sepsis secondary to that patient also has elevated troponin for which cardiology valid the patient patient was evaluated by infectious disease as well and patient is presently on cefepime and vancomycin and patient has superficial ulceration please refer to infectious disease note. Patient is having good urine output at this time patient received Lasix today does have rhonchus breath sounds. And patient was evaluated by cardiology no further plans for any aggressive intervention at this point of time for her elevated troponins patient may have non-ST elevation myocardial infarction are elevated troponin can be chest secondary to severe sepsis. Because of severe hyponatremia patient is on half- normal saline at 50 mL per hour because of concerns of pulmonary edema 02/20/2017 Patient is not doing well patient was on Levaquin overnight patient appears to be volume depleted also received Lasix today morning. Chest x-ray did not show any volume overload. Patient was 6 L of oxygen low mean arterial pressure, patient is being managed by critical care services. Patient does have good urine output. If lactic acid is elevated patient may end up needing fluid patient is tachycardic as well he had neutropenia although improved patient is hyponatremia is bit worse. Patient patient is tachypneic as well probably due to lactic acidosis. Will need IV fluids with this can you Lasix. We will also hold off on digoxin and will obtain dig levels. Patient's IV fluids need to be increased to 200 mL per hour may even need boluses Patient denied any chest pain, nausea, vomiting, abdominal pain, dysuria or focal weakness Objective - Vital Signs Vital signs: Vital Signs Temp 98.3 F 02/20/17 12:00 Pulse 119 H 02/20/17 14:00 Resp 28 H 02/20/17 14:00 BP 87/49 02/20/17 14:00 Pulse Ox 94 L 02/20/17 14:00 Intake & Output 02/19/17 02/20/17 02/20/17 18:59 06:59 18:59 Intake Total 2530 1170 770 Output Total 7937 1685 4596 Balance -7215 -1715 -910 Weight 85.4 kg 99 kg Intake: IV 450 350 100 0.9 NACL 200 Cefepime 2 gm In Sodium 100 100 Chloride 0.9% 50 ml @ 100 mls/hr IVPB Q8HR [facility] Rx# :[id number] Vancomycin 1,500 mg In 250 250 Sodium Chloride 0.9% 250 ml @ 125 mls/hr IVPB Q16H [facility] Rx#:[id number] Intake, IV Titration 660 320 430 Amount Albumin Human 25% 50 ml 50 In Empty Bag 1 bag @ 100 mls/hr IVPB ONCE [facility] Rx#: [id number] Cefepime 2 gm In Sodium 100 Chloride 0.9% 50 ml @ 100 mls/hr IVPB Q8HR [facility] Rx# :[id number] Magnesium Sulfate-D5w Pmx 100 1 gm In Dextrose/Water 1 100ml.bag @ 100 mls/hr IVPB Q1H [facility] Rx#: [id number] Potassium Chloride 10 meq 100 In Water For Injection 1 100ml.bag @ 100 mls/hr IVPB Q1H [facility] Rx#: [id number] Potassium Chloride 10 meq 100 Lidocaine 2% Inj 10 mg In Sodium Chloride 0.9% 100 ml @ 100 mls/hr IV Q1HR [facility] Rx#:[id number] Sodium Chloride 0.45% 1, 360 320 280 000 ml @ 40 mls/hr IV . Q24H [facility] Rx#:[id number] Oral 1420 500 240 Output: Urine 7900 2885 1680 Other: Voiding Method Indwelling Catheter Indwelling Catheter Indwelling Catheter - Exam PHYSICAL EXAMINATION: GENERAL: The patient is alert and oriented x3, appears to be severely septic with the tach apnea and tachycardia HEENT: Pupils are round and equally reacting to light. EOMI. No scleral icterus. No conjunctival pallor. Normocephalic, atraumatic. No pharyngeal erythema. No thyromegaly. CARDIOVASCULAR: S1 and S2 present. No murmurs, rubs, or gallops. PULMONARY: I lateral diffuse rhonchus breath sounds no significant wheezing was appreciated, limited air entry into bilateral lung lewis. ABDOMEN: Soft, nontender, nondistended, normoactive bowel sounds. No palpable organomegaly. MUSCULOSKELETAL: No joint swelling or deformity. EXTREMITIES: No cyanosis, clubbing, or pedal edema. NEUROLOGICAL: Gross neurological examination did not reveal any focal deficits. SKIN: Superficial ulcerations and ruptured blister on the left leg - Labs CBC & Chem 7: 02/20/17 04:03 02/20/17 12:40 Labs: Abnormal Lab Results - Last 24 Hours (Table) 02/19/17 02/19/17 02/19/17 Range/Units 13:58 15:22 21:47 WBC 1.3 L* (3.8-10.6) k/uL RBC 3.03 L (4.30-5.90) m/uL Hgb 9.3 L (13.0-17.5) gm/dL Hct 30.3 L (39.0-53.0) % MCV 100.1 H (80.0-100.0) fL MCHC 30.6 L (31.0-37.0) g/dL RDW 18.5 H (11.5-15.5) % Neutrophils # (Manual) 0.20 L (1.3-7.7) k/uL Lymphocytes # (Manual) 0.65 L (1.0-4.8) k/uL Metamyelocytes # (Man) 0.01 H (0) k/uL Myelocytes # (Manual) 0.07 H (0) k/uL Nucleated RBCs 1 H (0-0) /100 WBC Sodium 154 H (137-145) mmol/L Potassium 2.8 L* 2.9 L* (3.5-5.1) mmol/L Chloride 120 H* (98-107) mmol/L BUN (9-20) mg/dL Glucose 155 H (74-99) mg/dL Plasma Lactic Acid John (0.7-2.0) mmol/L Calcium 7.8 L (8.4-10.2) mg/dL AST 117 H (17-59) U/L Total Protein 5.0 L (6.3-8.2) g/dL Albumin 2.4 L (3.5-5.0) g/dL 02/20/17 02/20/17 02/20/17 Range/Units 04:03 04:03 12:38 WBC 2.0 L* (3.8-10.6) k/uL RBC 3.10 L (4.30-5.90) m/uL Hgb 9.7 L (13.0-17.5) gm/dL Hct 31.3 L (39.0-53.0) % MCV 100.8 H (80.0-100.0) fL MCHC (31.0-37.0) g/dL RDW 18.1 H (11.5-15.5) % Neutrophils # (Manual) 1.20 L (1.3-7.7) k/uL Lymphocytes # (Manual) 0.60 L (1.0-4.8) k/uL Metamyelocytes # (Man) 0.02 H (0) k/uL Myelocytes # (Manual) (0) k/uL Nucleated RBCs 6 H (0-0) /100 WBC Sodium 153 H (137-145) mmol/L Potassium 2.8 L* (3.5-5.1) mmol/L Chloride 118 H (98-107) mmol/L BUN 21 H (9-20) mg/dL Glucose 107 H (74-99) mg/dL Plasma Lactic Acid John 5.2 H* (0.7-2.0) mmol/L Calcium (8.4-10.2) mg/dL AST 85 H (17-59) U/L Total Protein 5.1 L (6.3-8.2) g/dL Albumin 2.4 L (3.5-5.0) g/dL 02/20/17 Range/Units 12:40 WBC (3.8-10.6) k/uL RBC (4.30-5.90) m/uL Hgb (13.0-17.5) gm/dL Hct (39.0-53.0) % MCV (80.0-100.0) fL MCHC (31.0-37.0) g/dL RDW (11.5-15.5) % Neutrophils # (Manual) (1.3-7.7) k/uL Lymphocytes # (Manual) (1.0-4.8) k/uL Metamyelocytes # (Man) (0) k/uL Myelocytes # (Manual) (0) k/uL Nucleated RBCs (0-0) /100 WBC Sodium (137-145) mmol/L Potassium 3.0 L* (3.5-5.1) mmol/L Chloride (98-107) mmol/L BUN (9-20) mg/dL Glucose (74-99) mg/dL Plasma Lactic Acid John (0.7-2.0) mmol/L Calcium (8.4-10.2) mg/dL AST (17-59) U/L Total Protein (6.3-8.2) g/dL Albumin (3.5-5.0) g/dL Microbiology - Last 24 Hours (Table) 02/18/17 13:14 Blood Culture - Preliminary Blood No Growth after 24 hours 02/18/17 12:55 Blood Culture - Preliminary Blood No Growth after 24 hours 02/18/17 12:55 Urine Culture - Final Urine,Voided Assessment and Plan Plan: #1 neutropenic fever and severe sepsis: Patient is on broad-spectrum antibiotics as mentioned above which will be continued. Patient does have severe lactic acidosis patient will need IV fluids will be started on 0.45% saline at 100 mL per hour #2 elevated troponin: There is a probability of non-ST elevation myocardial infarction R 10 related to severe sepsis itself. #3 hypernatremia: Can be related to intravascular volume depletion is on half- normal saline as mentioned above. #4 lung cancer actively receiving chemotherapy leading to neutropenia #5 left leg ulcer superficial ulceration low suspicion this is causing infection #6 anemia of chronic disease #7 history of atrial fibrillation for which patient is also which is being continued Patient doesn't want to be intubated. Prognosis is extremely poor options are limited as he cannot be intubated with concerns of developing pulmonary edema although patient is severely intravascularly volume depleted at this point of time will need IV fluids.
[2017-02-20] MEDS: METOPROLOL SUCCINATE (ER) 25 MG TAB.ER.24H PO SCH (14:49)
[2017-02-20] MEDS: RIVAROXABAN 10 MG TAB PO SCH (17:38)
[2017-02-20] MEDS ORDERED: FUROSEMIDE 10 MG/ML 4 ML VIAL IV SCH (21:00)
--- NOTE | 2017-02-20 22:04 | PN ---
PROGRESS NOTE DATE OF SERVICE: 02/20/2017. REASON FOR FOLLOWUP: Sepsis with left lower extremity cellulitis. INTERVAL HISTORY: The patient is afebrile. He is hemodynamically more stable. Denies any chest pain. Did have some cough, but not bringing any sputum. No abdominal pain or any pain in the left leg area. EXAMINATION: Blood pressure 102/58 with a pulse of 94, temperature 98.6. He is 90% on 6L nasal cannula. GENERAL DESCRIPTION: An elderly male, lying in bed in no distress. RESPIRATORY SYSTEM: Unlabored breathing. Coarse breath sounds bilaterally. HEART: S1, S2. Regular rate and rhythm. ABDOMEN: Soft. No tenderness. Left leg swelling is still better and redness has improved. LABS: Hemoglobin 9.7, white count 2.0. BUN of 21, creatinine 1.0. DIAGNOSTIC IMPRESSION AND PLAN: Patient with febrile neutropenia with sepsis. Source is left lower extremity cellulitis. The patient is currently on broad-spectrum antibiotic in the form of cefepime and vancomycin that will be continued, adjusting it further based on cultures and clinical response. Continue supportive care. MMODL / IJN: [id number] /
--- NOTE | 2017-02-20 22:11 | P.PN ---
Subjective Progress Note Date: 02/20/17 The patient remains quite weak, and short of breath even at rest. No obvious bleeding noted. Fever has resolved. Objective - Vital Signs Vital signs: Vital Signs Temp 98.6 F 02/20/17 20:00 Pulse 94 02/20/17 20:00 Resp 24 02/20/17 20:00 BP 102/58 02/20/17 20:00 Pulse Ox 90 L 02/20/17 20:00 Intake & Output 02/20/17 02/20/17 02/21/17 06:59 18:59 06:59 Intake Total 1170 1570 160 Output Total 2885 2220 40 Balance -1715 -650 120 Weight 99 kg Intake: IV 350 400 Cefepime 2 gm In Sodium 100 150 Chloride 0.9% 50 ml @ 100 mls/hr IVPB Q8HR [facility] Rx# :[id number] Vancomycin 1,500 mg In 250 250 Sodium Chloride 0.9% 250 ml @ 125 mls/hr IVPB Q16H [facility] Rx#:[id number] Intake, IV Titration 320 830 100 Amount Albumin Human 25% 50 ml 50 In Empty Bag 1 bag @ 100 mls/hr IVPB ONCE [facility] Rx#: [id number] Potassium Chloride 10 meq 200 Lidocaine 2% Inj 10 mg In Sodium Chloride 0.9% 100 ml @ 100 mls/hr IV Q1HR [facility] Rx#:[id number] Sodium Chloride 0.45% 1, 300 100 000 ml @ 100 mls/hr IV . Q10H [facility] Rx#:[id number] Sodium Chloride 0.45% 1, 320 280 000 ml @ 40 mls/hr IV . Q24H [facility] Rx#:[id number] Oral 500 340 60 Output: Urine 2885 2220 40 Other: Voiding Method Indwelling Catheter Indwelling Catheter - Constitutional General appearance: Present: mild distress - EENT Eyes: Present: EOMI, PERRLA ENT: Present: hearing grossly normal, normal oropharynx - Respiratory Respiratory: bilateral: diminished - Cardiovascular Rhythm: regular Heart sounds: normal: S1, S2 - Gastrointestinal General gastrointestinal: Present: normal bowel sounds, soft - Integumentary Integumentary: Present: normal - Musculoskeletal Musculoskeletal: Present: generalized weakness, strength equal bilaterally - Labs CBC & Chem 7: 02/20/17 04:03 02/20/17 20:25 Labs: Abnormal Lab Results - Last 24 Hours (Table) 02/19/17 02/20/17 02/20/17 Range/Units 21:47 04:03 04:03 WBC 2.0 L* (3.8-10.6) k/uL RBC 3.10 L (4.30-5.90) m/uL Hgb 9.7 L (13.0-17.5) gm/dL Hct 31.3 L (39.0-53.0) % MCV 100.8 H (80.0-100.0) fL RDW 18.1 H (11.5-15.5) % Neutrophils # (Manual) 1.20 L (1.3-7.7) k/uL Lymphocytes # (Manual) 0.60 L (1.0-4.8) k/uL Metamyelocytes # (Man) 0.02 H (0) k/uL Nucleated RBCs 6 H (0-0) /100 WBC Sodium 153 H (137-145) mmol/L Potassium 2.9 L* 2.8 L* (3.5-5.1) mmol/L Chloride 118 H (98-107) mmol/L BUN 21 H (9-20) mg/dL Glucose 107 H (74-99) mg/dL Plasma Lactic Acid John (0.7-2.0) mmol/L AST 85 H (17-59) U/L Total Protein 5.1 L (6.3-8.2) g/dL Albumin 2.4 L (3.5-5.0) g/dL 02/20/17 02/20/17 02/20/17 Range/Units 12:38 12:40 16:33 WBC (3.8-10.6) k/uL RBC (4.30-5.90) m/uL Hgb (13.0-17.5) gm/dL Hct (39.0-53.0) % MCV (80.0-100.0) fL RDW (11.5-15.5) % Neutrophils # (Manual) (1.3-7.7) k/uL Lymphocytes # (Manual) (1.0-4.8) k/uL Metamyelocytes # (Man) (0) k/uL Nucleated RBCs (0-0) /100 WBC Sodium (137-145) mmol/L Potassium 3.0 L* (3.5-5.1) mmol/L Chloride (98-107) mmol/L BUN (9-20) mg/dL Glucose (74-99) mg/dL Plasma Lactic Acid John 5.2 H* 5.5 H* (0.7-2.0) mmol/L AST (17-59) U/L Total Protein (6.3-8.2) g/dL Albumin (3.5-5.0) g/dL 02/20/17 02/20/17 Range/Units 20:25 20:25 WBC (3.8-10.6) k/uL RBC (4.30-5.90) m/uL Hgb (13.0-17.5) gm/dL Hct (39.0-53.0) % MCV (80.0-100.0) fL RDW (11.5-15.5) % Neutrophils # (Manual) (1.3-7.7) k/uL Lymphocytes # (Manual) (1.0-4.8) k/uL Metamyelocytes # (Man) (0) k/uL Nucleated RBCs (0-0) /100 WBC Sodium (137-145) mmol/L Potassium 3.1 L (3.5-5.1) mmol/L Chloride (98-107) mmol/L BUN (9-20) mg/dL Glucose (74-99) mg/dL Plasma Lactic Acid John 4.3 H* (0.7-2.0) mmol/L AST (17-59) U/L Total Protein (6.3-8.2) g/dL Albumin (3.5-5.0) g/dL Microbiology - Last 24 Hours (Table) 02/18/17 17:07 Gram Stain - Final Foot - Left Wound Culture - Final 02/18/17 13:14 Blood Culture - Preliminary Blood No Growth after 48 hours 02/18/17 12:55 Blood Culture - Preliminary Blood No Growth after 48 hours Assessment and Plan (1) Neutropenic sepsis Narrative/Plan: Cultures have remained negative. The patient however has not had a fever since initial admission. Hemodynamics have improved. Continue antibiotics Status: Acute (2) Bicytopenia Narrative/Plan: hemoglobin is stable. White count continues to improve and is 2000 today. Continue growth factor till WBC recovery is satisfactory Status: Acute (3) Small cell lung cancer Narrative/Plan: we will postpone his second cycle of chemotherapy, by about a week, to allow adequate recovery from his acute condition. This was scheduled to start on 02/24/17 Status: Acute
[2017-02-21] MEDS: CEFEPIME 2 GM in SODIUM CHLORIDE 0.9% 50 ML IVPB SCH (01:17)
[2017-02-21 02:39] LABS: Anisocytosis Slight; CH 31.5; CHCM 31.3; HCT 29.4 % (39.0-53.0); HDW 3.12; HGB 8.7 gm/dL (13.0-17.5); Hypochromasia Slight; Immature Gran Flag Marked; MCH 30.1 pg (25.0-35.0); MCHC 29.6 g/dL (31.0-37.0); MCV 101.7 fL (80.0-100.0); Macrocytosis Moderate; Mean Platelet Volume 9.6; RBC 2.89 m/uL (4.30-5.90); RDW 19.3 % (11.5-15.5); WBC (Perox) 4.81
[2017-02-21 02:54] LABS: Add Differential Manual Differential
[2017-02-21 02:59] LABS: Band Neutrophils % 26 %; Manual Review Performed; Metamyelocytes % 6 %; Nucleated Red Blood Cells 2 /100 WBC (0-0); Promyelocytes % 1 %; Total Cells Counted 200; WBC 3.8 k/uL (3.8-10.6)
[2017-02-21 03:05] LABS: ALT 36 U/L (21-72); AST 48 U/L (17-59); Alkaline Phosphatase 83 U/L (38-126); Blood Urea Nitrogen 24 mg/dL (9-20); Calcium 8.8 mg/dL (8.4-10.2); Carbon Dioxide 23 mmol/L (22-30); Glucose 106 mg/dL (74-99); Magnesium 2.2 mg/dL (1.6-2.3); Non-African American GFR(MDRD) >60 (>60 ml/min/1.73 sqM); Total Bilirubin 0.6 mg/dL (0.2-1.3); Total Protein 4.8 g/dL (6.3-8.2)
[2017-02-21 03:13] LABS: Anion Gap 11 mmol/L; Potassium 3.6 mmol/L (3.5-5.1); Sodium 155 mmol/L (137-145)
[2017-02-21 03:15] LABS: Chloride 121 mmol/L (98-107)
[2017-02-21] MEDS: POTASSIUM CHLORIDE 10 MEQ, LIDOCAINE 2% INJ 10 MG in SODIUM CHLORIDE 0.9% 100 ML IV SCH ×2 (05:51→06:57)
[2017-02-21] MEDS: PANTOPRAZOLE 40 MG/10 ML VIAL IVP SCH (07:53)
[2017-02-21] MEDS: LACTOBACILLUS ACIDOPH & BULGAR 1 EACH PACKET PO SCH ×2 (07:54→20:10)
[2017-02-21] MEDS: ASPIRIN 81 MG PO SCH (07:54)
[2017-02-21] MEDS: METOPROLOL SUCCINATE (ER) 25 MG TAB.ER.24H PO SCH (07:54)
[2017-02-21] MEDS: ATORVASTATIN 20 MG TAB PO SCH (07:54)
[2017-02-21] MEDS: CEFEPIME 2 GM in DEXTROSE 5% IN WATER 50 ML IVPB SCH ×4 (08:06→16:09)
[2017-02-21] MEDS ORDERED: METOPROLOL SUCCINATE (ER) 25 MG TAB.ER.24H PO SCH (09:00)
[2017-02-21] MEDS ORDERED: VANCOMYCIN TROUGH DUE 1 EACH MISC MISCELLANE ONE (09:00)
[2017-02-21] MEDS ORDERED: DEXTROSE 5% IN WATER 1,000 ML IV ONE (09:06)
[2017-02-21] MEDS: SODIUM CHLORIDE 0.45% 1,000 ML IV SCH (09:18)
--- NOTE | 2017-02-21 09:20 | PN ---
PROGRESS NOTE Mr. Cheek is a 76-year-old male with a known history of small cell CA, metastatic who was receiving chemotherapy, who presented with weakness and had evidence of myocardial infarction. He is awake, alert, with an element of confusion, although he recalls some of the events. He denies any chest pain. Hemodynamically, he maintained sinus mechanism. He had episode of atrial fibrillation yesterday, but he is back in sinus. His blood pressure has been relatively stable. He continues to be at this time on aspirin 81 mg daily, Lipitor 20 mg daily, metoprolol succinate 25 mg daily, Xarelto 20 mg daily. PHYSICAL EXAMINATION: Blood pressure 119/60 with a heart rate in the 90s. Afebrile. LUNGS: No wheezes appreciated. HEART: Regular rate and rhythm. S1, S2. No S3. No rub. ABDOMEN: Soft and nontender. EXTREMITIES: With erythema and tenderness in the left lower extremity and decreased edema on the right side. LAB DATA: Lab data revealed a hemoglobin of 8.7, white blood cells 3.8, platelet count 257. Sodium of 155. BUN and creatinine 24 and 1.1. His lactic acid level is 2.1. IMPRESSION: 1. Neutropenic sepsis, improving. 2. Myocardial infarction. 3. Small cell cancer. 4. Anemia and leukopenia, improving. Related to his chemotherapy. 5. Paroxysmal atrial fibrillation. 6. Cellulitis. RECOMMENDATION: From the cardiac standpoint, we will continue supportive care on the present medical regimen and continue to follow his renal function and platelet count. Unfortunately, his prognosis remains guarded. MMODL / IJN: [id number] /
[2017-02-21] MEDS: WATER IVPB SCH ×2 (09:45)
[2017-02-21] MEDS: VANCOMYCIN IVPB SCH ×2 (09:45)
[2017-02-21] MEDS: DEXTROSE 5% IVPB SCH ×2 (09:45)
[2017-02-21] MEDS: FILGRASTIM-SNDZ 300 MCG/0.5 ML SYRINGE SQ SCH (10:08)
--- NOTE | 2017-02-21 10:28 | XR ---
EXAMINATION TYPE: XR chest 1V portable DATE OF EXAM: 02/21/2017 COMPARISON: Prior chest x-ray 02/20/2017 HISTORY: Lung cancer, abnormal chest x-ray TECHNIQUE: Single frontal view of the chest is obtained. FINDINGS: There is no significant interval change.. IMPRESSION: Stable exam. Findings compatible with patient's history of lung carcinoma. There may be basilar atelectasis, correlate to exclude pneumonia, effusion.
[2017-02-21] MEDS: POTASSIUM CHLORIDE 10 MEQ in WATER FOR INJECTION 1 100ML.BAG IVPB SCH ×2 (12:29→16:09)
[2017-02-21 14:53] VITALS: BMI 28.3
[2017-02-21] MEDS: RIVAROXABAN 10 MG TAB PO SCH (16:09)
[2017-02-21] MEDS: POTASSIUM CHLORIDE ER 20 MEQ TAB.ER PO SCH ×2 (17:53→20:10)
[2017-02-21] MEDS: ALBUTEROL NEBULIZED 2.5 MG/3 ML INHALATION PRN (19:40)
--- NOTE | 2017-02-21 21:50 | PN ---
PROGRESS NOTE REASON FOR FOLLOWUP: Left lower extremity cellulitis. INTERVAL HISTORY: The patient is afebrile, has been breathing comfortably. Denies significant chest pain. Occasional cough. No abdominal pain. Denies any pain in his left leg area. PHYSICAL EXAMINATION: Blood pressure is 111/62 with a pulse of 96, temperature of 99. He is 90% on 6 L nasal cannula. General description is an elderly male lying in bed in no distress. RESPIRATORY SYSTEM: Unlabored breathing. Clear to auscultation anteriorly. HEART: S1, S2. Regular rate and rhythm. ABDOMEN: Soft. No tenderness. Left leg swelling persists. Redness has improved. LABS: Hemoglobin 8.7, white count of 3.8. BUN of 24, creatinine 1.10. DIAGNOSTIC IMPRESSION AND PLAN: Patient with febrile neutropenia and sepsis with acute left lower extremity cellulitis. The patient is responding to cefepime. That will be continued, adjusting it further based on his clinical response. Continue supportive care. MMODL / IJN: [id number] /
--- NOTE | 2017-02-22 00:53 | P.PN ---
Subjective Progress Note Date: 02/21/17 Principal diagnosis: Neutropenic fever very pleasant gentleman was admitted for neutropenic fever and sepsis secondary to that patient also has elevated troponin for which cardiology valid the patient patient was evaluated by infectious disease as well and patient is presently on cefepime and vancomycin and patient has superficial ulceration please refer to infectious disease note. Patient is having good urine output at this time patient received Lasix today does have rhonchus breath sounds. And patient was evaluated by cardiology no further plans for any aggressive intervention at this point of time for her elevated troponins patient may have non-ST elevation myocardial infarction are elevated troponin can be chest secondary to severe sepsis. Because of severe hyponatremia patient is on half- normal saline at 50 mL per hour because of concerns of pulmonary edema 02/20/2017 Patient is not doing well patient was on Levaquin overnight patient appears to be volume depleted also received Lasix today morning. Chest x-ray did not show any volume overload. Patient was 6 L of oxygen low mean arterial pressure, patient is being managed by critical care services. Patient does have good urine output. If lactic acid is elevated patient may end up needing fluid patient is tachycardic as well he had neutropenia although improved patient is hyponatremia is bit worse. Patient patient is tachypneic as well probably due to lactic acidosis. Will need IV fluids with this can you Lasix. We will also hold off on digoxin and will obtain dig levels. Patient's IV fluids need to be increased to 200 mL per hour may even need boluses 02/21/2017 Patient denied any new complaints today. Patient was started on D5 water due to increase the sodium level. Patient was able to tolerate breakfast and lunch today. Continue his to be on broad-spectrum antibiotics. Oncology is on board. No other acute overnight issues. Lactic acidosis level improved to 2.1 Patient denied any chest pain, nausea, vomiting, abdominal pain, dysuria or focal weakness Current medications reviewed. Objective - Vital Signs Vital signs: Vital Signs Temp 99.1 F 02/21/17 20:00 Pulse 99 02/21/17 23:00 Resp 20 02/21/17 23:46 BP 105/57 02/21/17 23:00 Pulse Ox 87 L 02/21/17 23:00 Intake & Output 02/21/17 02/21/17 02/22/17 06:59 18:59 06:59 Intake Total 1510 1580 700 Output Total 975 1070 1475 Balance 535 510 -775 Weight 97.5 kg 97.5 kg Intake: IV 100 200 160 Cefepime 2 gm In Sodium 100 200 Chloride 0.9% 50 ml @ 100 mls/hr IVPB Q8HR [facility] Rx# :[id number] Dextrose 5% in Water 1, 120 000 ml @ 40 mls/hr IV . Q24H [facility] Rx#:[id number] Norepinephrin 4 mg-0.9% 40 Ns Pmx 4 mg In 250 ml @ Titrate IV .Q0M [facility] Rx#: [id number] Intake, IV Titration 1100 400 40 Amount Dextrose 5% in Water 1, 200 40 000 ml @ 40 mls/hr IV . Q24H [facility] Rx#:[id number] Potassium Chloride 10 meq 100 In Water For Injection 1 100ml.bag @ 100 mls/hr IVPB Q1H [facility] Rx#: [id number] Potassium Chloride 10 meq 200 Lidocaine 2% Inj 10 mg In Sodium Chloride 0.9% 100 ml @ 100 mls/hr IV Q1HR [facility] Rx#:[id number] Potassium Chloride 10 meq 200 Lidocaine 2% Inj 10 mg In Sodium Chloride 0.9% 100 ml @ 100 mls/hr IV Q1HR [facility] Rx#:[id number] Sodium Chloride 0.45% 1, 700 100 000 ml @ 100 mls/hr IV . Q10H [facility] Rx#:[id number] Oral 310 980 500 Output: Urine 975 1070 1475 Other: Voiding Method Indwelling Catheter Indwelling Catheter Indwelling Catheter - Exam GENERAL: The patient is alert and oriented x3, appears to be severely septic with the tach apnea and tachycardia HEENT: Pupils are round and equally reacting to light. EOMI. No scleral icterus. No conjunctival pallor. Normocephalic, atraumatic. No pharyngeal erythema. No thyromegaly. CARDIOVASCULAR: S1 and S2 present. No murmurs, rubs, or gallops. PULMONARY: I lateral diffuse rhonchus breath sounds no significant wheezing was appreciated, limited air entry into bilateral lung lewis. ABDOMEN: Soft, nontender, nondistended, normoactive bowel sounds. No palpable organomegaly. MUSCULOSKELETAL: No joint swelling or deformity. EXTREMITIES: No cyanosis, clubbing, or pedal edema. NEUROLOGICAL: Gross neurological examination did not reveal any focal deficits. SKIN: Superficial ulcerations and ruptured blister on the left leg - Labs CBC & Chem 7: 02/21/17 02:13 02/21/17 22:35 Labs: Abnormal Lab Results - Last 24 Hours (Table) 02/20/17 02/21/17 02/21/17 Range/Units 12:38 00:25 02:13 RBC 2.89 L (4.30-5.90) m/uL Hgb 8.7 L (13.0-17.5) gm/dL Hct 29.4 L (39.0-53.0) % MCV 101.7 H (80.0-100.0) fL MCHC 29.6 L (31.0-37.0) g/dL RDW 19.3 H (11.5-15.5) % Lymphocytes # (Manual) 0.57 L (1.0-4.8) k/uL Metamyelocytes # (Man) 0.23 H (0) k/uL Promyelocytes # (Man) 0.04 H (0) k/uL Nucleated RBCs 2 H (0-0) /100 WBC Sodium (137-145) mmol/L Potassium (3.5-5.1) mmol/L Chloride (98-107) mmol/L BUN (9-20) mg/dL Glucose (74-99) mg/dL Plasma Lactic Acid John 5.2 H* 2.1 H* (0.7-2.0) mmol/L Total Protein (6.3-8.2) g/dL Albumin (3.5-5.0) g/dL 02/21/17 02/21/17 02/21/17 Range/Units 02:13 09:27 16:31 RBC (4.30-5.90) m/uL Hgb (13.0-17.5) gm/dL Hct (39.0-53.0) % MCV (80.0-100.0) fL MCHC (31.0-37.0) g/dL RDW (11.5-15.5) % Lymphocytes # (Manual) (1.0-4.8) k/uL Metamyelocytes # (Man) (0) k/uL Promyelocytes # (Man) (0) k/uL Nucleated RBCs (0-0) /100 WBC Sodium 155 H (137-145) mmol/L Potassium 3.4 L 3.3 L (3.5-5.1) mmol/L Chloride 121 H* (98-107) mmol/L BUN 24 H (9-20) mg/dL Glucose 106 H (74-99) mg/dL Plasma Lactic Acid John (0.7-2.0) mmol/L Total Protein 4.8 L (6.3-8.2) g/dL Albumin 2.3 L (3.5-5.0) g/dL Microbiology - Last 24 Hours (Table) 02/18/17 17:07 Anaerobic Culture - Final Foot - Left Anaerobic Gm Negative Bacilli 02/18/17 13:14 Blood Culture - Preliminary Blood No Growth after 72 hours 02/18/17 12:55 Blood Culture - Preliminary Blood No Growth after 72 hours Assessment and Plan Plan: #1 neutropenic fever and severe sepsis: Patient is on broad-spectrum antibiotics as mentioned above which will be continued. Patient does have severe lactic acidosis patient will need IV fluids will be started on 0.45% saline at 100 mL per hour. Change to D5 water. Lactic acidosis improving. #2 elevated troponin: There is a probability of non-ST elevation myocardial infarction. related to severe sepsis itself. #3 hypernatremia: Can be related to intravascular volume depletion is on half- normal saline as mentioned above. #4 lung cancer actively receiving chemotherapy leading to neutropenia #5 left leg ulcer superficial ulceration low suspicion this is causing infection #6 anemia of chronic disease #7 history of atrial fibrillation for which patient is also which is being continued on telemetry Patient doesn't want to be intubated. Prognosis is extremely poor options are limited as he cannot be intubated with concerns of developing pulmonary edema although patient is severely intravascularly volume depleted at this point of time will need IV fluids. Time with Patient: Greater than 30
[2017-02-22] MEDS: CEFEPIME 2 GM in DEXTROSE 5% IN WATER 50 ML IVPB SCH ×8 (01:13→23:59)
[2017-02-22] MEDS: WATER IVPB SCH ×2 (02:25)
[2017-02-22] MEDS: VANCOMYCIN IVPB SCH ×2 (02:25)
[2017-02-22] MEDS: DEXTROSE 5% IVPB SCH ×2 (02:25)
[2017-02-22 05:04] LABS: Anisocytosis Slight; CH 30.6; HCT 26.7 % (39.0-53.0); HDW 3.04; HGB 8.3 gm/dL (13.0-17.5); Hypochromasia Moderate; Immature Gran Flag Moderate; MCH 30.7 pg (25.0-35.0); MCHC 30.9 g/dL (31.0-37.0); MCV 99.4 fL (80.0-100.0); Macrocytosis Slight; Mean Platelet Volume 9.3; RBC 2.69 m/uL (4.30-5.90); RDW 18.4 % (11.5-15.5); WBC (Perox) 10.14
[2017-02-22 05:19] LABS: ALT 54 U/L (21-72); AST 70 U/L (17-59); Alkaline Phosphatase 103 U/L (38-126); Anion Gap 10 mmol/L; Blood Urea Nitrogen 22 mg/dL (9-20); Calcium 8.6 mg/dL (8.4-10.2); Carbon Dioxide 23 mmol/L (22-30); Chloride 114 mmol/L (98-107); Glucose 118 mg/dL (74-99); Non-African American GFR(MDRD) >60 (>60 ml/min/1.73 sqM); Sodium 147 mmol/L (137-145); Total Bilirubin 0.5 mg/dL (0.2-1.3); Total Protein 4.5 g/dL (6.3-8.2)
[2017-02-22 05:24] LABS: Potassium 2.8 mmol/L (3.5-5.1)
[2017-02-22] MEDS ORDERED: Potassium Replacement Protocol 1 EACH MISC MISCELLANE PRN ×2 (05:26→19:29)
[2017-02-22 05:29] LABS: Add Differential Manual Differential
[2017-02-22 05:36] LABS: Band Neutrophils % 5 %; Manual Review Performed; Metamyelocytes % 3 %; Myelocytes % 1 %; Nucleated Red Blood Cells 1 /100 WBC (0-0); Total Cells Counted 200; WBC 9.8 k/uL (3.8-10.6)
[2017-02-22 05:37] LABS: Large Platelets Present
[2017-02-22] MEDS: POTASSIUM CHLORIDE ER 20 MEQ TAB.ER PO SCH ×7 (05:47→21:07)
[2017-02-22] MEDS: POTASSIUM CHLORIDE 10 MEQ, LIDOCAINE 2% INJ 10 MG in SODIUM CHLORIDE 0.9% 100 ML IV SCH ×3 (05:47→09:25)
[2017-02-22] MEDS: ATORVASTATIN 20 MG TAB PO SCH (08:14)
[2017-02-22] MEDS: ASPIRIN 81 MG PO SCH (08:14)
[2017-02-22] MEDS: LACTOBACILLUS ACIDOPH & BULGAR 1 EACH PACKET PO SCH ×2 (08:14→21:06)
[2017-02-22] MEDS: METOPROLOL SUCCINATE (ER) 25 MG TAB.ER.24H PO SCH (08:15)
[2017-02-22] MEDS: PANTOPRAZOLE 40 MG/10 ML VIAL IVP SCH (08:15)
--- NOTE | 2017-02-22 09:30 | P.PN ---
Subjective Progress Note Date: 02/22/17 Principal diagnosis: Neutropenic fever, septic shock Patient seen and examined in the ICU with nursing staff at bedside. The patient states his breathing is great. He denies fevers, chills. He has been hemodynamically stable, not required pressors. He is on 6L NC. His sodium is improving. He has had adequate urine output. Objective - Vital Signs Vital signs: Vital Signs Temp 98.3 F 02/22/17 08:00 Pulse 85 02/22/17 09:00 Resp 20 02/22/17 09:00 BP 125/64 02/22/17 09:00 Pulse Ox 95 02/22/17 09:00 Intake & Output 02/21/17 02/22/17 02/22/17 18:59 06:59 18:59 Intake Total 1580 980 370 Output Total 1070 2720 275 Balance 510 -1740 95 Weight 97.5 kg 97.5 kg Intake: IV 200 440 120 Cefepime 2 gm In Sodium 200 Chloride 0.9% 50 ml @ 100 mls/hr IVPB Q8HR [facility] Rx# :[id number] Dextrose 5% in Water 1, 400 120 000 ml @ 40 mls/hr IV . Q24H [facility] Rx#:[id number] Norepinephrin 4 mg-0.9% 40 Ns Pmx 4 mg In 250 ml @ Titrate IV .Q0M [facility] Rx#: [id number] Intake, IV Titration 400 40 150 Amount Cefepime 2 gm In Dextrose 50 5% in Water 50 ml @ 100 mls/hr IVPB Q8HR [facility] Rx#: [id number] Dextrose 5% in Water 1, 200 40 000 ml @ 40 mls/hr IV . Q24H [facility] Rx#:[id number] Potassium Chloride 10 meq 100 In Water For Injection 1 100ml.bag @ 100 mls/hr IVPB Q1H [facility] Rx#: [id number] Potassium Chloride 10 meq 100 Lidocaine 2% Inj 10 mg In Sodium Chloride 0.9% 100 ml @ 100 mls/hr IV Q1HR [facility] Rx#:[id number] Sodium Chloride 0.45% 1, 100 000 ml @ 100 mls/hr IV . Q10H [facility] Rx#:[id number] Oral 980 500 100 Output: Urine 1070 2720 275 Other: Voiding Method Indwelling Catheter Indwelling Catheter Indwelling Catheter - Exam Gen: A+OX3, NAD, appears frail CV: RRR, s1/s2 Lungs: coarse breath sounds bilaterally Abd: soft, NT/ND, +BS Ext: LLE painful to touch, bilateral edema - Labs CBC & Chem 7: 02/22/17 04:32 02/22/17 04:29 Labs: Abnormal Lab Results - Last 24 Hours (Table) 02/20/17 02/21/17 02/21/17 Range/Units 12:38 09:27 16:31 RBC (4.30-5.90) m/uL Hgb (13.0-17.5) gm/dL Hct (39.0-53.0) % MCHC (31.0-37.0) g/dL RDW (11.5-15.5) % Metamyelocytes # (Man) (0) k/uL Myelocytes # (Manual) (0) k/uL Nucleated RBCs (0-0) /100 WBC Sodium (137-145) mmol/L Potassium 3.4 L 3.3 L (3.5-5.1) mmol/L Chloride (98-107) mmol/L BUN (9-20) mg/dL Glucose (74-99) mg/dL Plasma Lactic Acid John 5.2 H* (0.7-2.0) mmol/L AST (17-59) U/L Total Protein (6.3-8.2) g/dL Albumin (3.5-5.0) g/dL 02/22/17 02/22/17 Range/Units 04:29 04:32 RBC 2.69 L (4.30-5.90) m/uL Hgb 8.3 L (13.0-17.5) gm/dL Hct 26.7 L (39.0-53.0) % MCHC 30.9 L (31.0-37.0) g/dL RDW 18.4 H (11.5-15.5) % Metamyelocytes # (Man) 0.29 H (0) k/uL Myelocytes # (Manual) 0.10 H (0) k/uL Nucleated RBCs 1 H (0-0) /100 WBC Sodium 147 H (137-145) mmol/L Potassium 2.8 L* (3.5-5.1) mmol/L Chloride 114 H (98-107) mmol/L BUN 22 H (9-20) mg/dL Glucose 118 H (74-99) mg/dL Plasma Lactic Acid John (0.7-2.0) mmol/L AST 70 H (17-59) U/L Total Protein 4.5 L (6.3-8.2) g/dL Albumin 2.1 L (3.5-5.0) g/dL Microbiology - Last 24 Hours (Table) 02/18/17 17:07 Anaerobic Culture - Final Foot - Left Anaerobic Gm Negative Bacilli 02/18/17 13:14 Blood Culture - Preliminary Blood No Growth after 72 hours 02/18/17 12:55 Blood Culture - Preliminary Blood No Growth after 72 hours Assessment and Plan Plan: Severe sepsis, septic shock Lactic acidosis NAGMA Neutropenic fever Anemia SCLC Hypernatremia, improving Immunosuppressed due to chemotherapy s/p Fall at home Buttock, heel, and foot ulcer POA Hypernatremia, likely secondary to fluid resuscitation Afib, now rate controlled NSTEMI Bilateral lower extremity edema Inguinal lymphadenopathy O2 to maintain sat > or = 90% Blood, urine, sputum cultures ABX per ID Isolation precautions Hold Lasix Monitor Na, change IVF to D5W Increase free water intake Protein shakes Lactobacillus PT and OT Incentive spirometry and pulmonary hygiene Replace K Serial labs Rate control per cardio GI and DVT prophylaxis Ok to transfer out of ICU today
[2017-02-22 10:12] LABS: Anisocytosis Slight; CH 30.4; CHCM 30.9; HDW 3.04; HGB 8.2 gm/dL (13.0-17.5); Hypochromasia Moderate; MCH 30.1 pg (25.0-35.0); MCHC 30.3 g/dL (31.0-37.0); MCV 99.4 fL (80.0-100.0); Macrocytosis Slight; Mean Platelet Volume 9.8; RBC 2.72 m/uL (4.30-5.90); RDW 18.5 % (11.5-15.5); WBC 10.6 k/uL (3.8-10.6)
[2017-02-22] MEDS: COLLAGENASE 250 UNIT/GM OINTMENT 30 GM TUBE TOPICAL SCH (10:12)
--- NOTE | 2017-02-22 11:03 | PN ---
PROGRESS NOTE Mr. Cheek is a 76-year-old male with a history of lung CA, who presented with sepsis and evidence of non ST-segment elevation myocardial infarction. 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 He is awake and alert today. There is no further episode of confusion. He has short bursts of atrial fibrillation, but predominantly continues to be in sinus mechanism. Hemodynamically stable. His urinary output has been stable. He has no clear chest discomfort. He continues to be on the Xarelto 20 mg daily, aspirin 81 mg daily, Lipitor 20 mg daily, metoprolol succinate 25 mg daily. PHYSICAL EXAMINATION: Blood pressure 125/60 with a heart in the 80s. LUNGS: No wheezes. HEART: Regular rate and rhythm. S1, S2. No S3 with a systolic murmur. No diastolic murmur. ABDOMEN: Soft and nontender. EXTREMITIES: With almost total disappearance of the edema and reduction in the erythema and tenderness on the left side. LAB DATA: Revealed Hemoglobin of 8.2, white blood cell of 10.6, which is significantly improved compared with admission numbers. His BUN creatinine at 22 and 0.9. His potassium is 2.8. IMPRESSION: 1. Non ST-segment elevation myocardial infarction. 2. Small cell CA with metastasis, has received chemotherapy. 3. Leukopenia, resolved. 4. Paroxysmal atrial fibrillation. 5. Hypokalemia. RECOMMENDATION: From the cardiac standpoint, he is stable. We will continue present therapy. Follow his renal function. Because of his malignancy, he is not a candidate for any further cardiac workup at this time. MMODL / IJN: [id number] /
[2017-02-22] MEDS: FILGRASTIM-SNDZ 300 MCG/0.5 ML SYRINGE SQ SCH (11:33)
[2017-02-22] MEDS: RIVAROXABAN 10 MG TAB PO SCH (17:14)
[2017-02-22 19:54] LABS: Glucose,Whole Blood 139 mg/dL (75-99)
--- NOTE | 2017-02-22 22:28 | PN ---
PROGRESS NOTE DATE OF SERVICE: 02/22/2017. REASON FOR FOLLOWUP: Left lower extremity wound cellulitis. INTERVAL HISTORY: The patient is afebrile, has been breathing comfortably. Denies significant chest pain or cough. No abdominal pain or any worsening pain in the left flank area. EXAMINATION: Blood pressure 136/61 with a pulse of 85, temperature of 98. He is 94% on 6L nasal cannula. GENERAL DESCRIPTION: An elderly male lying in bed in no distress. RESPIRATORY SYSTEM: Unlabored breathing. Clear to auscultation anteriorly. HEART: S1, S2. Regular rate and rhythm. ABDOMEN: Soft, no tenderness. LABS: Hemoglobin 8.2, white count 10.6. DIAGNOSTIC IMPRESSION AND PLAN: Patient with sepsis with left lower extremity cellulitis and superficial wound with slough tissue. Local wound care was switched over to Santyl care. The patient on cefepime. Discontinue vancomycin, as no gram-positive has been grown. MMODL / IJN: [id number] /
--- NOTE | 2017-02-23 01:07 | P.PN ---
Subjective Progress Note Date: 02/22/17 Principal diagnosis: Neutropenic fever very pleasant gentleman was admitted for neutropenic fever and sepsis secondary to that patient also has elevated troponin for which cardiology valid the patient patient was evaluated by infectious disease as well and patient is presently on cefepime and vancomycin and patient has superficial ulceration please refer to infectious disease note. Patient is having good urine output at this time patient received Lasix today does have rhonchus breath sounds. And patient was evaluated by cardiology no further plans for any aggressive intervention at this point of time for her elevated troponins patient may have non-ST elevation myocardial infarction are elevated troponin can be chest secondary to severe sepsis. Because of severe hyponatremia patient is on half- normal saline at 50 mL per hour because of concerns of pulmonary edema 02/20/2017 Patient is not doing well patient was on Levaquin overnight patient appears to be volume depleted also received Lasix today morning. Chest x-ray did not show any volume overload. Patient was 6 L of oxygen low mean arterial pressure, patient is being managed by critical care services. Patient does have good urine output. If lactic acid is elevated patient may end up needing fluid patient is tachycardic as well he had neutropenia although improved patient is hyponatremia is bit worse. Patient patient is tachypneic as well probably due to lactic acidosis. Will need IV fluids with this can you Lasix. We will also hold off on digoxin and will obtain dig levels. Patient's IV fluids need to be increased to 200 mL per hour may even need boluses 02/21/2017 Patient denied any new complaints today. Patient was started on D5 water due to increase the sodium level. Patient was able to tolerate breakfast and lunch today. Continue his to be on broad-spectrum antibiotics. Oncology is on board. No other acute overnight issues. Lactic acidosis level improved to 2.1 10 x 12 by 2016 Patient denied any new complaints today appears to be comfortable. Potassium level came down to 2.8 today and is being replaced. Hemoglobin is fairly stable and sodium level improved from 155-147 today. Patient is being transferred to medical floor today. Patient denied any chest pain, nausea, vomiting, abdominal pain, dysuria or focal weakness Current medications reviewed. Objective - Vital Signs Vital signs: Vital Signs Temp 98.0 F 02/22/17 14:58 Pulse 85 02/22/17 16:00 Resp 30 H 02/22/17 14:58 BP 106/61 02/22/17 14:58 Pulse Ox 94 L 02/22/17 14:58 Intake & Output 02/22/17 02/22/17 02/23/17 06:59 18:59 06:59 Intake Total 980 830 237 Output Total 2720 840 Balance -1740 -10 237 Weight 97.5 kg Intake: IV 440 480 Dextrose 5% in Water 1, 400 480 000 ml @ 40 mls/hr IV . Q24H [facility] Rx#:[id number] Norepinephrin 4 mg-0.9% 40 Ns Pmx 4 mg In 250 ml @ Titrate IV .Q0M [facility] Rx#: [id number] Intake, IV Titration 40 250 Amount Cefepime 2 gm In Dextrose 50 5% in Water 50 ml @ 100 mls/hr IVPB Q8HR [facility] Rx#: [id number] Dextrose 5% in Water 1, 40 000 ml @ 40 mls/hr IV . Q24H [facility] Rx#:[id number] Potassium Chloride 10 meq 200 Lidocaine 2% Inj 10 mg In Sodium Chloride 0.9% 100 ml @ 100 mls/hr IV Q1HR [facility] Rx#:[id number] Oral 500 100 237 Output: Urine 2720 840 Other: Voiding Method Indwelling Catheter Urinal - Exam GENERAL: The patient is alert and oriented x3, appears to be severely septic with the tach apnea and tachycardia HEENT: Pupils are round and equally reacting to light. EOMI. No scleral icterus. No conjunctival pallor. Normocephalic, atraumatic. No pharyngeal erythema. No thyromegaly. CARDIOVASCULAR: S1 and S2 present. No murmurs, rubs, or gallops. PULMONARY: I lateral diffuse rhonchus breath sounds no significant wheezing was appreciated, limited air entry into bilateral lung lewis. ABDOMEN: Soft, nontender, nondistended, normoactive bowel sounds. No palpable organomegaly. MUSCULOSKELETAL: No joint swelling or deformity. EXTREMITIES: No cyanosis, clubbing, or pedal edema. NEUROLOGICAL: Gross neurological examination did not reveal any focal deficits. SKIN: Superficial ulcerations and ruptured blister on the left leg - Labs CBC & Chem 7: 02/22/17 09:58 02/23/17 00:31 Labs: Abnormal Lab Results - Last 24 Hours (Table) 02/22/17 02/22/17 02/22/17 Range/Units 04:29 04:32 09:58 RBC 2.69 L 2.72 L (4.30-5.90) m/uL Hgb 8.3 L 8.2 L (13.0-17.5) gm/dL Hct 26.7 L 27.0 L (39.0-53.0) % MCHC 30.9 L 30.3 L (31.0-37.0) g/dL RDW 18.4 H 18.5 H (11.5-15.5) % Metamyelocytes # (Man) 0.29 H (0) k/uL Myelocytes # (Manual) 0.10 H (0) k/uL Nucleated RBCs 1 H (0-0) /100 WBC Sodium 147 H (137-145) mmol/L Potassium 2.8 L* (3.5-5.1) mmol/L Chloride 114 H (98-107) mmol/L BUN 22 H (9-20) mg/dL Glucose 118 H (74-99) mg/dL POC Glucose (mg/dL) (75-99) mg/dL AST 70 H (17-59) U/L Total Protein 4.5 L (6.3-8.2) g/dL Albumin 2.1 L (3.5-5.0) g/dL 02/22/17 02/22/17 Range/Units 13:28 19:52 RBC (4.30-5.90) m/uL Hgb (13.0-17.5) gm/dL Hct (39.0-53.0) % MCHC (31.0-37.0) g/dL RDW (11.5-15.5) % Metamyelocytes # (Man) (0) k/uL Myelocytes # (Manual) (0) k/uL Nucleated RBCs (0-0) /100 WBC Sodium (137-145) mmol/L Potassium 3.2 L (3.5-5.1) mmol/L Chloride (98-107) mmol/L BUN (9-20) mg/dL Glucose (74-99) mg/dL POC Glucose (mg/dL) 139 H (75-99) mg/dL AST (17-59) U/L Total Protein (6.3-8.2) g/dL Albumin (3.5-5.0) g/dL Microbiology - Last 24 Hours (Table) 02/18/17 13:14 Blood Culture - Preliminary Blood No Growth after 96 hours 02/18/17 12:55 Blood Culture - Preliminary Blood No Growth after 96 hours 02/18/17 17:07 Anaerobic Culture - Final Foot - Left Anaerobic Gm Negative Bacilli Assessment and Plan Plan: #1 neutropenic fever and severe sepsis: Patient is on broad-spectrum antibiotics as mentioned above which will be continued. Patient does have severe lactic acidosis patient will need IV fluids will be started on 0.45% saline at 100 mL per hour. Change to D5 water. Lactic acidosis improving. #2 elevated troponin: There is a probability of non-ST elevation myocardial infarction. related to severe sepsis itself. #3 hypernatremia: Can be related to intravascular volume depletion is on half- normal saline as mentioned above. #4 lung cancer actively receiving chemotherapy leading to neutropenia #5 left leg ulcer superficial ulceration low suspicion this is causing infection #6 anemia of chronic disease #7 history of atrial fibrillation for which patient is also which is being continued on telemetry. On anticoagulation Patient doesn't want to be intubated. Prognosis is extremely poor options are limited as he cannot be intubated with concerns of developing pulmonary edema although patient is severely intravascularly volume depleted at this point of time will need IV fluids.
[2017-02-23 08:16] LABS: Anisocytosis Slight; CH 30.9; CHCM 31.6; HCT 26.1 % (39.0-53.0); HDW 3.13; HGB 8.2 gm/dL (13.0-17.5); Hypochromasia Slight; Immature Gran Flag Slight; MCH 31.2 pg (25.0-35.0); MCHC 31.6 g/dL (31.0-37.0); MCV 98.8 fL (80.0-100.0); Macrocytosis Slight; Mean Platelet Volume 10.4; RBC 2.64 m/uL (4.30-5.90); RDW 19.4 % (11.5-15.5); WBC (Perox) 16.11
[2017-02-23] MEDS: FAMOTIDINE 20 MG TAB PO SCH (08:23)
[2017-02-23] MEDS: DEMECLOCYCLINE 150 MG TAB PO SCH (08:23)
[2017-02-23 08:33] LABS: ALT 108 U/L (21-72); AST 150 U/L (17-59); Alkaline Phosphatase 176 U/L (38-126); Anion Gap 10 mmol/L; Blood Urea Nitrogen 17 mg/dL (9-20); Calcium 8.5 mg/dL (8.4-10.2); Carbon Dioxide 24 mmol/L (22-30); Chloride 113 mmol/L (98-107); Glucose 90 mg/dL (74-99); Magnesium 2.1 mg/dL (1.6-2.3); Non-African American GFR(MDRD) >60 (>60 ml/min/1.73 sqM); Potassium 3.4 mmol/L (3.5-5.1); Sodium 147 mmol/L (137-145); Total Bilirubin 0.5 mg/dL (0.2-1.3); Total Protein 4.9 g/dL (6.3-8.2)
[2017-02-23 08:38] LABS: Add Differential Manual Differential
[2017-02-23 08:42] LABS: Band Neutrophils % 4 %; Metamyelocytes % 3 %; Myelocytes % 1 %; Nucleated Red Blood Cells 1 /100 WBC (0-0); Total Cells Counted 200; WBC 15.5 k/uL (3.8-10.6)
[2017-02-23 08:43] LABS: Large Platelets Present; Polychromasia Present
[2017-02-23] MEDS: CEFEPIME 2 GM in DEXTROSE 5% IN WATER 50 ML IVPB SCH ×6 (08:43→23:06)
[2017-02-23] MEDS: LACTOBACILLUS ACIDOPH & BULGAR 1 EACH PACKET PO SCH ×2 (08:44→21:00)
[2017-02-23] MEDS: METOPROLOL SUCCINATE (ER) 25 MG TAB.ER.24H PO SCH (08:46)
[2017-02-23] MEDS: PANTOPRAZOLE 40 MG/10 ML VIAL IVP SCH (08:46)
[2017-02-23] MEDS: COLLAGENASE 250 UNIT/GM OINTMENT 30 GM TUBE TOPICAL SCH (08:46)
[2017-02-23] MEDS: ASPIRIN 81 MG PO SCH (08:46)
[2017-02-23] MEDS: ATORVASTATIN 20 MG TAB PO SCH (08:46)
[2017-02-23] MEDS: FILGRASTIM-SNDZ 300 MCG/0.5 ML SYRINGE SQ SCH (08:49)
--- NOTE | 2017-02-23 13:11 | PN ---
PROGRESS NOTE DATE OF SERVICE: 02/23/2017 Patient is a 76-year-old male who is seen sitting up in bed with family at bedside. Patient is awake, alert, does complain of some pain to his bottom from a decubitus ulcer. Denies any chest pain or worsening shortness of breath. Patient is afebrile, hemodynamically stable, in no acute distress. PHYSICAL EXAM: Vital signs temp 97.6, heart rate is 79, respiratory rate is 20, blood pressure is 112/68, O2 SATs 93% on 6 L O2 via nasal cannula. HEENT: Head is normocephalic, atraumatic. Neck is supple. Trachea is midline. Lungs with the decreased breath sounds and an expiratory wheeze. HEART: S1 and S2 are heard. Not tachycardic. Abdomen is soft. Bowel sounds are heard. Extremities with 1 to 2+ edema with Jeronimo wraps bilaterally and boot protectors. NEUROLOGIC: Patient is awake, alert. LABS: White count is 15.5, hemoglobin is 8.2, hematocrit is 26.1 with 198,000 platelets. Sodium is 147, potassium is 3.4, chloride is 113, CO2 is 24, anion gap is 10, BUN is 17, creatinine 0.75, glucose is 90, calcium is 8.5, magnesium is 2.1, total bilirubin 0.5, AST 150, ALT 108, alk phos 176, total protein 4.9, albumin is 2.2. No new imaging to review. IMPRESSION: 1. Severe sepsis, septic shock. 2. Lactic acidosis. 3. Neutropenic fever. 4. Anemia. 5. Small cell lung cancer. 6. Hypernatremia. 7. Immuno-suppressed due to chemotherapy. 8. Status post fall at home. 9. Buttock, heel and foot ulcer prior to admission. 10.Atrial fibrillation, rate is controlled and non-STEMI. 11.Bilateral lower extremity edema. 12.Inguinal lymphadenopathy. PLAN: Continue oxygen to maintain SATs greater and equal to 90%. Continue current medications which have been reviewed with antibiotics per Infectious Disease. Continue protein shakes and lactobacillus. Continue PT and OT. Continue incentive spirometry and pulmonary hygiene. Potassium is being replaced. Continue GI and DVT prophylaxis and will follow patient closely with you making further changes as necessary. MMODL / IJN: [id number] /
[2017-02-23] MEDS: RIVAROXABAN 10 MG TAB PO SCH (17:47)
--- NOTE | 2017-02-23 22:59 | PN ---
DOS :02/23/17 PROGRESS NOTE REASON FOR FOLLOWUP: Left leg wound and cellulitis. INTERVAL HISTORY: The patient is afebrile, has been breathing comfortably. Patient denies significant chest pain. Occasional cough. No abdominal pain or any diarrhea. PHYSICAL EXAMINATION: Blood pressure 119/57 with a pulse of 116, temperature of 98. He is 94% on 6 L nasal cannula. General description is an elderly male lying in bed in no distress. RESPIRATORY SYSTEM: Unlabored breathing. Clear to auscultation anteriorly. HEART : S1, S2. Regular rate and rhythm. ABDOMEN: Soft. No tenderness. Left leg swelling and redness have improved. LABS: Hemoglobin 8.2, white count 15.5 with a BUN of 17, creatinine 0.75. DIAGNOSTIC IMPRESSION AND PLAN: Patient with left lower extremity cellulitis in a patient admitted to hospital with febrile neutropenia and sepsis, currently responding to cefepime. Dose will be adjusted to 2 grams q.12, Local wound care with Medih[facility]. Keep the area dressed and with Jeronimo wrap to keep the swelling down. Will re-evaluate tomorrow. present at the bedside. Questions were answered. MMODL / IJN: [id number] / KELI
--- NOTE | 2017-02-24 00:43 | P.PN ---
Subjective Progress Note Date: 02/23/17 Principal diagnosis: Neutropenic fever very pleasant gentleman was admitted for neutropenic fever and sepsis secondary to that patient also has elevated troponin for which cardiology valid the patient patient was evaluated by infectious disease as well and patient is presently on cefepime and vancomycin and patient has superficial ulceration please refer to infectious disease note. Patient is having good urine output at this time patient received Lasix today does have rhonchus breath sounds. And patient was evaluated by cardiology no further plans for any aggressive intervention at this point of time for her elevated troponins patient may have non-ST elevation myocardial infarction are elevated troponin can be chest secondary to severe sepsis. Because of severe hyponatremia patient is on half- normal saline at 50 mL per hour because of concerns of pulmonary edema 02/20/2017 Patient is not doing well patient was on Levaquin overnight patient appears to be volume depleted also received Lasix today morning. Chest x-ray did not show any volume overload. Patient was 6 L of oxygen low mean arterial pressure, patient is being managed by critical care services. Patient does have good urine output. If lactic acid is elevated patient may end up needing fluid patient is tachycardic as well he had neutropenia although improved patient is hyponatremia is bit worse. Patient patient is tachypneic as well probably due to lactic acidosis. Will need IV fluids with this can you Lasix. We will also hold off on digoxin and will obtain dig levels. Patient's IV fluids need to be increased to 200 mL per hour may even need boluses 02/21/2017 Patient denied any new complaints today. Patient was started on D5 water due to increase the sodium level. Patient was able to tolerate breakfast and lunch today. Continue his to be on broad-spectrum antibiotics. Oncology is on board. No other acute overnight issues. Lactic acidosis level improved to 2.1 10 x 12 by 2016 Patient denied any new complaints today appears to be comfortable. Potassium level came down to 2.8 today and is being replaced. Hemoglobin is fairly stable and sodium level improved from 155-147 today. Patient is being transferred to medical floor today. 02/23/2017 Patient denied any fever or chills overnight. left lower extremity swelling and redness slightly improved at leukocytosis increased to 15.5. No complaints of chest pain or short of breath. Patient was started on D5 half-normal. And assess fluid status tomorrow. Patient denied any chest pain, nausea, vomiting, abdominal pain, dysuria or focal weakness Current medications reviewed. Objective - Vital Signs Vital signs: Vital Signs Temp 98 F 02/23/17 15:00 Pulse 116 H 02/23/17 16:00 Resp 18 02/23/17 16:00 BP 119/57 02/23/17 15:00 Pulse Ox 94 L 02/23/17 15:00 Intake & Output 02/23/17 02/23/17 02/24/17 06:59 18:59 06:59 Intake Total 1147 930 Output Total 850 Balance 297 930 Weight 97.5 kg Intake: IV 320 Dextrose 5% in Water 1, 320 000 ml @ 40 mls/hr IV . Q24H [facility] Rx#:[id number] Intake, IV Titration 100 Amount Cefepime 2 gm In Dextrose 100 5% in Water 50 ml @ 100 mls/hr IVPB Q8HR [facility] Rx#: [id number] Oral 827 830 Output: Urine 850 Other: Voiding Method Urinal Urinal - Exam GENERAL: The patient is alert and oriented x3, appears to be severely septic with the tach apnea and tachycardia HEENT: Pupils are round and equally reacting to light. EOMI. No scleral icterus. No conjunctival pallor. Normocephalic, atraumatic. No pharyngeal erythema. No thyromegaly. CARDIOVASCULAR: S1 and S2 present. No murmurs, rubs, or gallops. PULMONARY: I lateral diffuse rhonchus breath sounds no significant wheezing was appreciated, limited air entry into bilateral lung lewis. ABDOMEN: Soft, nontender, nondistended, normoactive bowel sounds. No palpable organomegaly. MUSCULOSKELETAL: No joint swelling or deformity. EXTREMITIES: No cyanosis, clubbing, or pedal edema. Left lower extremity redness and swelling improving. Jeronimo bandage is present NEUROLOGICAL: Gross neurological examination did not reveal any focal deficits. SKIN: Superficial ulcerations and ruptured blister on the left leg - Labs CBC & Chem 7: 02/23/17 07:24 02/23/17 07:24 Labs: Abnormal Lab Results - Last 24 Hours (Table) 02/23/17 02/23/17 Range/Units 07:24 07:24 WBC 15.5 H (3.8-10.6) k/uL RBC 2.64 L (4.30-5.90) m/uL Hgb 8.2 L (13.0-17.5) gm/dL Hct 26.1 L (39.0-53.0) % RDW 19.4 H (11.5-15.5) % Neutrophils # (Manual) 13.10 H (1.3-7.7) k/uL Metamyelocytes # (Man) 0.47 H (0) k/uL Myelocytes # (Manual) 0.16 H (0) k/uL Nucleated RBCs 1 H (0-0) /100 WBC Sodium 147 H (137-145) mmol/L Potassium 3.4 L (3.5-5.1) mmol/L Chloride 113 H (98-107) mmol/L AST 150 H (17-59) U/L ALT 108 H (21-72) U/L Alkaline Phosphatase 176 H (38-126) U/L Total Protein 4.9 L (6.3-8.2) g/dL Albumin 2.2 L (3.5-5.0) g/dL Microbiology - Last 24 Hours (Table) 02/18/17 13:14 Blood Culture - Preliminary Blood No Growth after 120 hours 02/18/17 12:55 Blood Culture - Preliminary Blood No Growth after 120 hours Assessment and Plan Plan: #1 neutropenic fever and severe sepsis: Due to left lower extremity cellulitis Patient is on broad-spectrum antibiotics as mentioned above which will be continued. Patient does have severe lactic acidosis. Lactic acidosis improving. #2 elevated troponin: There is a probability of non-ST elevation myocardial infarction. related to severe sepsis itself. #3 hypernatremia: Can be related to intravascular volume depletion is on half- normal saline as mentioned above. Gentle hydration with D5 half normal saline #4 lung cancer actively receiving chemotherapy leading to neutropenia #5 left leg ulcer superficial ulceration low suspicion this is causing infection #6 anemia of chronic disease #7 history of atrial fibrillation for which patient is also which is being continued on telemetry. On anticoagulation Patient doesn't want to be intubated. Prognosis is extremely poor options are limited as he cannot be intubated with concerns of developing pulmonary edema although patient is severely intravascularly volume depleted at this point of time will need IV fluids. Continue with antibiotics in the form of cefepime. ID is following. Recheck labs in the morning tomorrow. Time with Patient: Greater than 30
[2017-02-24] MEDS: DEXTROSE 5%-0.45% NACL 1,000 ML IV SCH (02:09)
[2017-02-24 07:56] LABS: Anion Gap 8 mmol/L; Blood Urea Nitrogen 17 mg/dL (9-20); Calcium 8.5 mg/dL (8.4-10.2); Carbon Dioxide 26 mmol/L (22-30); Chloride 110 mmol/L (98-107); Glucose 88 mg/dL (74-99); Non-African American GFR(MDRD) >60 (>60 ml/min/1.73 sqM); Sodium 144 mmol/L (137-145)
[2017-02-24 08:04] LABS: Potassium 2.7 mmol/L (3.5-5.1)
[2017-02-24 08:06] LABS: Anisocytosis Slight; CH 31.3; CHCM 31.5; HCT 25.9 % (39.0-53.0); HDW 3.12; Hypochromasia Slight; Immature Gran Flag Moderate; MCH 30.9 pg (25.0-35.0); MCHC 30.8 g/dL (31.0-37.0); MCV 100.3 fL (80.0-100.0); Macrocytosis Moderate; Mean Platelet Volume 10.6; RBC 2.58 m/uL (4.30-5.90); RDW 19.5 % (11.5-15.5); WBC (Perox) 21.87
[2017-02-24] MEDS ORDERED: Potassium Replacement Protocol 1 EACH MISC MISCELLANE PRN (08:09)
[2017-02-24] MEDS: POTASSIUM CHLORIDE ER 20 MEQ TAB.ER PO SCH ×2 (09:35→11:02)
[2017-02-24 09:57] LABS: Add Differential Manual Differential
[2017-02-24 09:59] LABS: Band Neutrophils % 5 %; Metamyelocytes % 3 %; Myelocytes % 3 %; Nucleated Red Blood Cells 1 /100 WBC (0-0); Total Cells Counted 200
[2017-02-24 10:00] LABS: Manual Review Performed; WBC 19.8 k/uL (3.8-10.6)
[2017-02-24 10:01] LABS: Large Platelets Present
[2017-02-24 10:02] LABS: Polychromasia Present; Toxic Granulation Present
[2017-02-24] MEDS: COLLAGENASE 250 UNIT/GM OINTMENT 30 GM TUBE TOPICAL SCH (11:01)
[2017-02-24] MEDS: LACTOBACILLUS ACIDOPH & BULGAR 1 EACH PACKET PO SCH ×2 (11:02→20:12)
[2017-02-24] MEDS: METOPROLOL SUCCINATE (ER) 25 MG TAB.ER.24H PO SCH (11:03)
[2017-02-24] MEDS: PANTOPRAZOLE 40 MG/10 ML VIAL IVP SCH (11:03)
[2017-02-24] MEDS: ATORVASTATIN 20 MG TAB PO SCH (11:03)
[2017-02-24] MEDS: CEFEPIME 2 GM in DEXTROSE 5% IN WATER 50 ML IVPB SCH ×4 (11:04→20:11)
[2017-02-24] MEDS: ASPIRIN 81 MG PO SCH (11:04)
--- NOTE | 2017-02-24 11:56 | P.PN ---
Subjective very pleasant gentleman was admitted for neutropenic fever and sepsis secondary to that patient also has elevated troponin for which cardiology valid the patient patient was evaluated by infectious disease as well and patient is presently on cefepime and vancomycin and patient has superficial ulceration please refer to infectious disease note. Patient is having good urine output at this time patient received Lasix today does have rhonchus breath sounds. And patient was evaluated by cardiology no further plans for any aggressive intervention at this point of time for her elevated troponins patient may have non-ST elevation myocardial infarction are elevated troponin can be chest secondary to severe sepsis. Because of severe hyponatremia patient is on half- normal saline at 50 mL per hour because of concerns of pulmonary edema 02/20/2017 Patient is not doing well patient was on Levaquin overnight patient appears to be volume depleted also received Lasix today morning. Chest x-ray did not show any volume overload. Patient was 6 L of oxygen low mean arterial pressure, patient is being managed by critical care services. Patient does have good urine output. If lactic acid is elevated patient may end up needing fluid patient is tachycardic as well he had neutropenia although improved patient is hyponatremia is bit worse. Patient patient is tachypneic as well probably due to lactic acidosis. Will need IV fluids with this can you Lasix. We will also hold off on digoxin and will obtain dig levels. Patient's IV fluids need to be increased to 200 mL per hour may even need boluses 02/21/2017 Patient denied any new complaints today. Patient was started on D5 water due to increase the sodium level. Patient was able to tolerate breakfast and lunch today. Continue his to be on broad-spectrum antibiotics. Oncology is on board. No other acute overnight issues. Lactic acidosis level improved to 2.1 10 x 12 by 2016 Patient denied any new complaints today appears to be comfortable. Potassium level came down to 2.8 today and is being replaced. Hemoglobin is fairly stable and sodium level improved from 155-147 today. Patient is being transferred to medical floor today. 02/23/2017 Patient denied any fever or chills overnight. left lower extremity swelling and redness slightly improved at leukocytosis increased to 15.5. No complaints of chest pain or short of breath. Patient was started on D5 half-normal. And assess fluid status tomorrow. 02/24/2017 Patient has significant improvement since I saw him last time saline is of the left lower extremity did improve. Constitutional: Denied any fatigue denied any fever. Cardio vascular: denied any chest pain, palpitations Gastrointestinal denied any nausea vomiting Pulmonary: Denied any shortness of breath cough Neurologic denied any new focal deficits Objective - Vital Signs Vital signs: Vital Signs Temp 97.4 F L 02/24/17 07:00 Pulse 77 02/24/17 10:26 Resp 22 02/24/17 10:26 BP 102/62 02/24/17 07:00 Pulse Ox 93 L 02/24/17 07:00 Intake & Output 02/23/17 02/24/17 02/24/17 18:59 06:59 18:59 Intake Total 930 520 Output Total 400 Balance 930 120 Weight 97.5 kg 97.5 kg Intake: Intake, IV Titration 100 520 Amount Cefepime 2 gm In Dextrose 100 5% in Water 50 ml @ 100 mls/hr IVPB Q8HR [facility] Rx#: [id number] Dextrose 5%-0.45% NaCl 1, 520 000 ml @ 50 mls/hr IV . Q20H [facility] Rx#:[id number] Oral 830 Output: Urine 400 Other: Voiding Method Urinal Urinal Urinal # Voids 2 - Exam GENERAL: The patient is alert and oriented x3, appears to be severely septic with the tach apnea and tachycardia HEENT: Pupils are round and equally reacting to light. EOMI. No scleral icterus. No conjunctival pallor. Normocephalic, atraumatic. No pharyngeal erythema. No thyromegaly. CARDIOVASCULAR: S1 and S2 present. No murmurs, rubs, or gallops. PULMONARY: I lateral diffuse rhonchus breath sounds no significant wheezing was appreciated, limited air entry into bilateral lung lewis. ABDOMEN: Soft, nontender, nondistended, normoactive bowel sounds. No palpable organomegaly. MUSCULOSKELETAL: No joint swelling or deformity. EXTREMITIES: No cyanosis, clubbing, or pedal edema. Left lower extremity redness and swelling improving. Jeronimo bandage is present NEUROLOGICAL: Gross neurological examination did not reveal any focal deficits. SKIN: Superficial ulcerations and ruptured blister on the left leg - Labs CBC & Chem 7: 02/24/17 06:50 02/24/17 06:50 Labs: Abnormal Lab Results - Last 24 Hours (Table) 02/24/17 02/24/17 Range/Units 06:50 06:50 WBC 19.8 H (3.8-10.6) k/uL RBC 2.58 L (4.30-5.90) m/uL Hgb 8.0 L (13.0-17.5) gm/dL Hct 25.9 L (39.0-53.0) % MCV 100.3 H (80.0-100.0) fL MCHC 30.8 L (31.0-37.0) g/dL RDW 19.5 H (11.5-15.5) % Neutrophils # (Manual) 16.60 H (1.3-7.7) k/uL Metamyelocytes # (Man) 0.59 H (0) k/uL Myelocytes # (Manual) 0.59 H (0) k/uL Nucleated RBCs 1 H (0-0) /100 WBC Potassium 2.7 L* (3.5-5.1) mmol/L Chloride 110 H (98-107) mmol/L Microbiology - Last 24 Hours (Table) 02/18/17 13:14 Blood Culture - Preliminary Blood No Growth after 120 hours 02/18/17 12:55 Blood Culture - Preliminary Blood No Growth after 120 hours Assessment and Plan Plan: #1 neutropenic fever and severe sepsis: Due to left lower extremity cellulitis Patient is on broad-spectrum antibiotics as mentioned above which will be continued. Patient does have severe lactic acidosis. Lactic acidosis improving. #2 elevated troponin: There is a probability of non-ST elevation myocardial infarction. related to severe sepsis itself. #3 hypernatremia: Can be related to intravascular volume depletion is on half- normal saline as mentioned above. Gentle hydration with D5 half normal saline #4 lung cancer actively receiving chemotherapy leading to neutropenia #5 left leg ulcer superficial ulceration low suspicion this is causing infection #6 anemia of chronic disease #7 history of atrial fibrillation for which patient is also which is being continued on telemetry. On anticoagulation P2 noted evaluation possibly of discharge on Sunday patient has significant improvement continue with present antibiotics. Patient is presently on cefepime and infectious disease following the patient
--- NOTE | 2017-02-24 13:06 | PN ---
PROGRESS NOTE DATE OF SERVICE: 02/24/17. INTERVAL HISTORY: He was seen on February 24, 2017. He has been hemodynamically stable. He does not complain of any shortness of breath. His pain is under tight control. He is on the oncology unit. PHYSICAL EXAMINATION: Respiratory rate of 22, pulse rate of 77, blood pressure 102/62, O2 saturation on 6 L by nasal cannula is 93%. HEENT reveals pupils are equal. Chest reveals occasional rhonchi. Cardiovascular system is S1, S2. ABDOMEN: Soft. There is 1+ pedal edema. LABS: Revealed white count of 19.8, hemoglobin of 8, sodium 144, potassium 2.7, chloride 110, bicarb 26, BUN 17, creatinine 0.7. IMPRESSION: At this time: 1. Sepsis with septic shock with lactic acidosis for which the patient is doing better. 2. 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 3. Medical debility with protein calorie malnutrition. RECOMMENDATIONS: At this point in time, would increase his activity level. I did discuss options with the family. Would have Dr. Johnnie Romo further evaluate the patient for possible rehab placement. Depending on how he does, we shall make further changes to his care. MMODL / IJN: [id number] /
[2017-02-24] MEDS: RIVAROXABAN 10 MG TAB PO SCH (18:22)
--- NOTE | 2017-02-24 22:48 | PN ---
PROGRESS NOTE DATE OF SERVICE: 02/24/2017. REASON FOR FOLLOWUP: Left lower extremity cellulitis and wound. INTERVAL HISTORY: The patient is afebrile, has been breathing comfortably. Denies significant chest pain or shortness of breath. Occasional cough. No abdominal pain or any diarrhea. Pain in the left leg area. EXAMINATION: Blood pressure is 119/65 with a pulse of 83, temperature 97.7. He is 97% on 5L nasal cannula. GENERAL DESCRIPTION: An elderly male lying in bed in no distress. RESPIRATORY SYSTEM: Unlabored breathing. Clear to auscultation anteriorly. HEART: S1, S2. Regular rate and rhythm. ABDOMEN: Soft. No tenderness. LEFT LEG: Currently swollen up. No drainage. LABS: Hemoglobin is 8, white count 19.8. BUN of 17, creatinine 0.70. DIAGNOSTIC IMPRESSION AND PLAN: Patient with left leg wound and cellulitis. The patient was admitted to hospital with febrile and neutropenia and sepsis. Overall improvement on cefepime. Dose has been adjusted to 2 g q.12 with improvement in his white count, which is elevated because more likely secondary to colony-stimulating factor. Will monitor closely. Local wound care with Devendra. Family present at bedside. Their questions were answered. MMODL / IJN: [id number] /
[2017-02-25] MEDS: DEXTROSE 5%-0.45% NACL 1,000 ML IV SCH (02:24)
[2017-02-25 06:25] LABS: Anisocytosis Slight; CH 31.3; CHCM 31.9; HDW 3.21; HGB 8.1 gm/dL (13.0-17.5); Hypochromasia Slight; MCH 31.9 pg (25.0-35.0); MCHC 32.2 g/dL (31.0-37.0); MCV 98.9 fL (80.0-100.0); Macrocytosis Slight; Mean Platelet Volume 11.5; RBC 2.53 m/uL (4.30-5.90); RDW 19.3 % (11.5-15.5)
[2017-02-25 06:40] LABS: Blood Urea Nitrogen 14 mg/dL (9-20); Calcium 8.2 mg/dL (8.4-10.2); Carbon Dioxide 27 mmol/L (22-30); Glucose 88 mg/dL (74-99); Non-African American GFR(MDRD) >60 (>60 ml/min/1.73 sqM); Sodium 146 mmol/L (137-145)
[2017-02-25 06:50] LABS: Anion Gap 8 mmol/L; Chloride 111 mmol/L (98-107)
[2017-02-25 07:00] LABS: Potassium 2.9 mmol/L (3.5-5.1)
[2017-02-25] MEDS: POTASSIUM CHLORIDE ER 20 MEQ TAB.ER PO SCH ×5 (08:30→16:39)
[2017-02-25] MEDS: LACTOBACILLUS ACIDOPH & BULGAR 1 EACH PACKET PO SCH ×2 (09:47→21:30)
[2017-02-25] MEDS: ATORVASTATIN 20 MG TAB PO SCH ×2 (09:48→10:40)
[2017-02-25] MEDS: COLLAGENASE 250 UNIT/GM OINTMENT 30 GM TUBE TOPICAL SCH (09:48)
[2017-02-25] MEDS: METOPROLOL SUCCINATE (ER) 25 MG TAB.ER.24H PO SCH (09:48)
[2017-02-25] MEDS: ASPIRIN 81 MG PO SCH (09:48)
[2017-02-25] MEDS: CEFEPIME 2 GM in DEXTROSE 5% IN WATER 50 ML IVPB SCH ×4 (11:33→21:27)
[2017-02-25] MEDS: PANTOPRAZOLE 40 MG/10 ML VIAL IVP SCH (11:33)
[2017-02-25] MEDS ORDERED: FUROSEMIDE 10 MG/ML 4 ML VIAL IV STA (11:59)
--- NOTE | 2017-02-25 12:18 | PN ---
PROGRESS NOTE DATE OF SERVICE: 02/25/17 He was seen on February 25, 2017. He has been hemodynamically stable but has worsening shortness of breath. He is sitting in a chair. PHYSICAL EXAMINATION: On physical examination, his respiratory rate is 20, pulse 81, temperature 97.5, O2 saturation on 2 L by nasal cannula is 93%. Blood pressure 116/58. HEENT reveals pupils are equal, mild prominence of the jugular veins. Chest reveals decreased breath sounds. Prolonged expiration. Faint expiratory rhonchi. Cardiovascular system reveals an S1, S2. Abdomen is soft, with 1+ to 2+ pedal edema. [place]AT[place]: [place] [address], hemoglobin of 8.1, sodium 146, potassium 2.9, chloride 111, bicarb 27, repeat potassium is 3.2. IMPRESSION: 1. Neutropenic sepsis with recent septic shock. 2. Bronchospasm. 3. Fluid overload. 4. Medical debility. At this point in time, give the patient a short course of Solu-Medrol along with aerosolized steroids. Continue him on antibiotics and attempt to keep him in negative fluid balance. Over the last 24 hours, he is at least 1.2 L positive. He was counseled regarding his condition and this approach in the presence of his family and has a fair understanding of our recommendations. MMODL / IJN: [id number] /
[2017-02-25] MEDS: methylPREDNISolone SOD SUCCI 125 MG/2 ML VIAL IV SCH ×3 (13:15→23:09)
--- NOTE | 2017-02-25 14:57 | P.PN ---
Subjective very pleasant gentleman was admitted for neutropenic fever and sepsis secondary to that patient also has elevated troponin for which cardiology valid the patient patient was evaluated by infectious disease as well and patient is presently on cefepime and vancomycin and patient has superficial ulceration please refer to infectious disease note. Patient is having good urine output at this time patient received Lasix today does have rhonchus breath sounds. And patient was evaluated by cardiology no further plans for any aggressive intervention at this point of time for her elevated troponins patient may have non-ST elevation myocardial infarction are elevated troponin can be chest secondary to severe sepsis. Because of severe hyponatremia patient is on half- normal saline at 50 mL per hour because of concerns of pulmonary edema 02/20/2017 Patient is not doing well patient was on Levaquin overnight patient appears to be volume depleted also received Lasix today morning. Chest x-ray did not show any volume overload. Patient was 6 L of oxygen low mean arterial pressure, patient is being managed by critical care services. Patient does have good urine output. If lactic acid is elevated patient may end up needing fluid patient is tachycardic as well he had neutropenia although improved patient is hyponatremia is bit worse. Patient patient is tachypneic as well probably due to lactic acidosis. Will need IV fluids with this can you Lasix. We will also hold off on digoxin and will obtain dig levels. Patient's IV fluids need to be increased to 200 mL per hour may even need boluses 02/21/2017 Patient denied any new complaints today. Patient was started on D5 water due to increase the sodium level. Patient was able to tolerate breakfast and lunch today. Continue his to be on broad-spectrum antibiotics. Oncology is on board. No other acute overnight issues. Lactic acidosis level improved to 2.1 10 x 12 by 2016 Patient denied any new complaints today appears to be comfortable. Potassium level came down to 2.8 today and is being replaced. Hemoglobin is fairly stable and sodium level improved from 155-147 today. Patient is being transferred to medical floor today. 02/23/2017 Patient denied any fever or chills overnight. left lower extremity swelling and redness slightly improved at leukocytosis increased to 15.5. No complaints of chest pain or short of breath. Patient was started on D5 half-normal. And assess fluid status tomorrow. 02/24/2017 Patient has significant improvement since I saw him last time saline is of the left lower extremity did improve. 06/28/2016 No overnight events patient is awaiting to be discharged to subacute rehabilitation Constitutional: Denied any fatigue denied any fever. Cardio vascular: denied any chest pain, palpitations Gastrointestinal denied any nausea vomiting Pulmonary: Denied any shortness of breath cough Neurologic denied any new focal deficits Objective - Vital Signs Vital signs: Vital Signs Temp 97.5 F L 02/25/17 07:00 Pulse 81 02/25/17 10:45 Resp 20 02/25/17 10:45 BP 116/58 02/25/17 07:00 Pulse Ox 93 L 02/25/17 08:00 Intake & Output 02/24/17 02/25/17 02/25/17 18:59 06:59 18:59 Intake Total 550 Output Total 400 Balance 150 Weight 97.5 kg Intake: Intake, IV Titration 550 Amount Dextrose 5%-0.45% NaCl 1, 550 000 ml @ 50 mls/hr IV . Q20H [facility] Rx#:[id number] Output: Urine 400 Other: Voiding Method Urinal Urinal Urinal # Voids 2 2 - Exam GENERAL: The patient is alert and oriented x3, appears to be severely septic with the tach apnea and tachycardia HEENT: Pupils are round and equally reacting to light. EOMI. No scleral icterus. No conjunctival pallor. Normocephalic, atraumatic. No pharyngeal erythema. No thyromegaly. CARDIOVASCULAR: S1 and S2 present. No murmurs, rubs, or gallops. PULMONARY: I lateral diffuse rhonchus breath sounds no significant wheezing was appreciated, limited air entry into bilateral lung lewis. ABDOMEN: Soft, nontender, nondistended, normoactive bowel sounds. No palpable organomegaly. MUSCULOSKELETAL: No joint swelling or deformity. EXTREMITIES: No cyanosis, clubbing, or pedal edema. Left lower extremity redness and swelling improving. Jeronimo bandage is present NEUROLOGICAL: Gross neurological examination did not reveal any focal deficits. SKIN: Superficial ulcerations and ruptured blister on the left leg - Labs CBC & Chem 7: 02/25/17 06:06 02/25/17 11:32 Labs: Abnormal Lab Results - Last 24 Hours (Table) 02/25/17 02/25/17 02/25/17 Range/Units 06:06 06:06 11:32 WBC 15.0 H (3.8-10.6) k/uL RBC 2.53 L (4.30-5.90) m/uL Hgb 8.1 L (13.0-17.5) gm/dL Hct 25.0 L (39.0-53.0) % RDW 19.3 H (11.5-15.5) % Sodium 146 H (137-145) mmol/L Potassium 2.9 L* 3.2 L (3.5-5.1) mmol/L Chloride 111 H (98-107) mmol/L Creatinine 0.62 L (0.66-1.25) mg/dL Calcium 8.2 L (8.4-10.2) mg/dL Microbiology - Last 24 Hours (Table) 02/18/17 13:14 Blood Culture - Final Blood No Growth after 144 hours 02/18/17 12:55 Blood Culture - Final Blood No Growth after 144 hours Assessment and Plan Plan: #1 neutropenic fever and severe sepsis: Due to left lower extremity cellulitis Patient is on broad-spectrum antibiotics as mentioned above which will be continued. Patient does have severe lactic acidosis. Lactic acidosis improving. #2 elevated troponin: There is a probability of non-ST elevation myocardial infarction. related to severe sepsis itself. #3 hypernatremia: Improved D5 half-normal saline is being discontinued #4 lung cancer actively receiving chemotherapy leading to neutropenia #5 left leg ulcer superficial ulceration low suspicion this is causing infection #6 anemia of chronic disease #7 history of atrial fibrillation for which patient is also which is being continued on telemetry. On anticoagulation possibly of discharge on Sunday patient has significant improvement continue with present antibiotics. Patient is presently on cefepime and infectious disease following the patient
[2017-02-25] MEDS: ALBUTEROL NEBULIZED 2.5 MG/3 ML INHALATION PRN (15:11)
--- NOTE | 2017-02-25 15:36 | XR ---
EXAMINATION TYPE: XR chest 1V DATE OF EXAM: 02/25/2017 CLINICAL HISTORY: Difficulty breathing progress study. History of lung cancer. TECHNIQUE: Single AP portable upright view of the chest is obtained. COMPARISON: Chest x-ray from 4 days earlier and older studies back to February 18, 2017 FINDINGS: There is background chronic emphysematous change with persistent medial right suprahilar m asslike opacity. Left lung is clear. No large pleural effusion or pneumothorax is seen bilaterally. C ardiac silhouette size is stable and mildly enlarged. Osseous structures are demineralized. IMPRESSION: Overall stable findings, mild cardiomegaly and chronic emphysematous change with suspic ious right suprahilar masslike opacity, likely reflecting underlying neoplasm. Correlate with outside studies. No suspicious new focal infiltrate.
[2017-02-25] MEDS: RIVAROXABAN 10 MG TAB PO SCH (16:33)
--- NOTE | 2017-02-25 22:07 | PN ---
PROGRESS NOTE DATE OF SERVICE: 02/25/2017. REASON FOR FOLLOW UP: Left lower extremity wound cellulitis. INTERVAL HISTORY: The patient is afebrile, has been breathing comfortably. Denies significant chest pain or shortness of breath. No cough, no abdominal pain, slight pain in the left leg area. PHYSICAL EXAMINATION: Blood pressure 121/80 with a pulse of 80, temperature 97.9. He is 98% on 2 L nasal cannula. General description: Patient is an elderly male lying in bed, in no distress. Respiratory system: Unlabored breathing, some decreased breath sounds at the bases. No wheeze. Heart S1-S2 regular rate and rhythm. Abdomen: Soft, no tenderness. LABS: Hemoglobin 8.1, white count 15,000. Potassium was 3.2. DIAGNOSTIC IMPRESSION AND PLAN: Patient with left lower extremity cellulitis and wound. The patient admitted to the hospital with febrile neutropenia, sepsis. Overall improvement in clinical condition. Plan to finish therapy with p.o. Keflex along with Jeronimo wrap to keep the swelling down. Continue supportive care. MMODL / IJN: [id number] /
[2017-02-25] MEDS: BUDESONIDE 0.5 MG/2 ML NEBU INHALATION SCH (22:33)
[2017-02-26] MEDS: methylPREDNISolone SOD SUCCI 125 MG/2 ML VIAL IV SCH ×3 (06:18→18:25)
--- NOTE | 2017-02-26 06:57 | P.CONS ---
History of Present Illness - Chief Complaint Medical debility - History of Present Illness I had the opportunity to see patient for inpatient rehab consultation with regard to medical debility. He was admitted to [facility] February 18 history of fall and temperature 103. Seen by Dr. Dickens for infectious disease and Dr. Beckford for known pulmonary cancer, notes neutropenic sepsis. Chest x-rays followed for cardiomegaly, emphysema and right suprahilar mass. PT reports minimal assistance for bed mobility moderate assistance for transfers, standing, gait 3 feet. OT prescribed. Previous functional history as elicited from patient: Right-handed male who is lives in one floor home with . Retired. does the cooking laundry in the driving. Patient describes independent with sitdown shower and gait with cane versus walker. Review of Systems Review of systems: ENT: Denies sneezes or discharge. Eyes: Denies discharge or photophobia. Cardiac: Denies chest pain or palpitation. Pulmonary: Denies cough or shortness of breath. Gastrointestinal: Denies nausea, emesis, constipation, diarrhea. Genitourinary: Denies discharge or frequency. Musculoskeletal: Denies muscle or bone aches. Neurologic: Denies motor or sensory change. Dysarthria possibly related to dentures. Endocrine: Denies shakes or sweats. Oncology: Denies cancers. Dermatologic: Denies rash, itching, pruritus. ALLERGY/immunology: Denies sneezes, rashes. 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, removed, recent chemotherapy 2 weeks ago History of Any Multi-Drug Resistant Organisms: None Reported Additional Past Surgical History / Comment(s): cx removed from right side of face in 2014, bx to left side gums, heel spur removed left heel Past Anesthesia/Blood Transfusion Reactions: No Reported Reaction Past Psychological History: No Psychological Hx Reported Smoking Status: Former smoker Past Alcohol Use History: None Reported Past Drug Use History: None Reported - Past Family History Mother Family Medical History: Diabetes Mellitus Medications and Allergies Home Medications Medication Instructions Recorded Confirmed Type Albuterol Sulfate [Proair Hfa] 1 - 2 puff INHALATION RT-Q6H PRN 02/18/17 History Demeclocycline [Declomycin] 300 mg PO BID 02/18/17 02/18/17 History Metoprolol Succinate [Toprol XL] 100 mg PO DAILY 02/18/17 02/18/17 History Prochlorperazine [Compazine] 10 mg PO Q6H PRN 02/18/17 02/18/17 History Rivaroxaban [Xarelto] 20 mg PO W/SUPPER 02/18/17 02/18/17 History Allergies Allergy/AdvReac Type Severity Reaction Status Date / Time No Known Allergies Allergy Unverified 02/18/17 13:40 Physical Exam Vitals: Vital Signs Temp Pulse Pulse Resp BP Pulse Ox 02/25/17 23:00 97.6 F 85 18 114/61 95 02/25/17 15:40 89 02/25/17 15:13 80 02/25/17 15:00 97.9 F 87 20 121/80 87 L 02/25/17 10:45 81 20 02/25/17 08:00 93 L 02/25/17 07:00 97.5 F L 82 18 116/58 94 L Intake and Output 02/25/17 02/25/17 02/26/17 14:59 22:59 06:59 Intake Total 50 Output Total 2 Balance -2 50 Intake: IV 50 Cefepime 2 gm In Dextrose 50 5% in Water 50 ml @ 100 mls/hr IVPB Q12HR [facility] Rx# :[id number] Output: Urine 2 Other: Voiding Method Urinal Urinal # Voids 400 1 Skin: Atrophic, intact. General: Overweight and comfortable appearance. Head: Normocephalic, atraumatic. Eyes: Symmetric. Pupils equal round. Ears: Symmetric. Hearing within normal limits. Mouth: Clear. Neck: Supple. Carotid without bruit. Cardiac: Regular rate and rhythm. Lungs: Clear anteriorly and posteriorly. Abdomen: Soft active nontender. Extremities: Normal tone. Left foot and ankle and Jeronimo wrap. Both feet in boots. Neurological: Mental status: Alert, cooperative, pleasant. Dysarthric but possibly related to dentures. Cranial nerves: Symmetric facial tone and trapezius. Motor: Able to elevate all limbs off of bed. Sensation: Intact throughout. DTRs: Symmetric and equal throughout. Mobility: Sits and stands with assistance. Results CBC & Chem 7: 02/25/17 06:06 02/25/17 11:32 Labs: Abnormal Lab Results - Last 24 Hours (Table) 02/25/17 02/25/17 Range/Units 06:06 11:32 Sodium 146 H (137-145) mmol/L Potassium 2.9 L* 3.2 L (3.5-5.1) mmol/L Chloride 111 H (98-107) mmol/L Creatinine 0.62 L (0.66-1.25) mg/dL Calcium 8.2 L (8.4-10.2) mg/dL Chest x-ray: report reviewed (Chest x-rays followed for mild cardiomegaly, emphysema change and right suprahilar mass.) Assessment and Plan (1) Pneumonia Status: Acute Plan: Impression: 1. Medical debility. 2. Pulmonary cancer. 3. Pneumonia with neutropenic sepsis. 4. Possible NV. 5. Dysarthria, possibly related to dentures. Comments and plan: PT and OT and going and I have added speech therapy for dysarthria. I will follow therapies with yourself possible benefit of inpatient rehab. Endurance currently an issue.
[2017-02-26] MEDS: LACTOBACILLUS ACIDOPH & BULGAR 1 EACH PACKET PO SCH ×2 (07:53→22:16)
[2017-02-26] MEDS: PANTOPRAZOLE 40 MG/10 ML VIAL IVP SCH (07:54)
[2017-02-26] MEDS: ATORVASTATIN 20 MG TAB PO SCH (07:54)
[2017-02-26] MEDS: METOPROLOL SUCCINATE (ER) 25 MG TAB.ER.24H PO SCH (07:54)
[2017-02-26] MEDS: ASPIRIN 81 MG PO SCH (07:54)
[2017-02-26] MEDS: BUDESONIDE 0.5 MG/2 ML NEBU INHALATION SCH ×2 (08:16→20:17)
[2017-02-26] MEDS: ALBUTEROL NEBULIZED 2.5 MG/3 ML INHALATION PRN ×2 (08:16→20:17)
[2017-02-26] MEDS: CEFEPIME 2 GM in DEXTROSE 5% IN WATER 50 ML IVPB SCH ×2 (08:35)
[2017-02-26 09:13] LABS: Anisocytosis Slight; CH 30.1; CHCM 30.8; HCT 28.4 % (39.0-53.0); HGB 8.7 gm/dL (13.0-17.5); Hypochromasia Moderate; Large Platelets Flag Slight; MCH 30.3 pg (25.0-35.0); MCHC 30.8 g/dL (31.0-37.0); MCV 98.5 fL (80.0-100.0); Macrocytosis Slight; Mean Platelet Volume 11.2; RBC 2.88 m/uL (4.30-5.90); RDW 18.6 % (11.5-15.5); WBC 15.1 k/uL (3.8-10.6)
[2017-02-26 09:19] LABS: Anion Gap 8 mmol/L; Blood Urea Nitrogen 18 mg/dL (9-20); Calcium 8.1 mg/dL (8.4-10.2); Carbon Dioxide 29 mmol/L (22-30); Chloride 109 mmol/L (98-107); Glucose 125 mg/dL (74-99); Non-African American GFR(MDRD) >60 (>60 ml/min/1.73 sqM); Potassium 3.6 mmol/L (3.5-5.1); Sodium 146 mmol/L (137-145)
[2017-02-26] MEDS ORDERED: FUROSEMIDE 10 MG/ML 4 ML VIAL IV STA (10:13)
--- NOTE | 2017-02-26 10:13 | P.PN ---
Subjective Progress Note Date: 02/26/17 Principal diagnosis: Septic shock Patient seen and examined. Patient states his breathing is good today. He states the nebulizer treatments seem to be helping. He is asking to get up and take a bath. Plan is for rehabilitation soon. Objective - Vital Signs Vital signs: Vital Signs Temp 97.8 F 02/26/17 07:00 Pulse 76 02/26/17 08:36 Resp 20 02/26/17 07:00 BP 116/78 02/26/17 07:00 Pulse Ox 95 02/26/17 07:00 Intake & Output 02/25/17 02/26/17 02/26/17 18:59 06:59 18:59 Intake Total 50 Output Total 2 Balance -2 50 Intake: IV 50 Cefepime 2 gm In Dextrose 50 5% in Water 50 ml @ 100 mls/hr IVPB Q12HR [facility] Rx# :[id number] Output: Urine 2 Other: Voiding Method Urinal Urinal # Voids 400 1 - Exam Gen: A+OX3, NAD, appears frail CV: RRR, s1/s2 Lungs: coarse breath sounds bilaterally Abd: soft, NT/ND, +BS Ext: LLE painful to touch, bilateral edema improving - Labs CBC & Chem 7: 02/26/17 08:26 02/26/17 08:26 Labs: Abnormal Lab Results - Last 24 Hours (Table) 02/25/17 02/26/17 02/26/17 Range/Units 11:32 08:26 08:26 WBC 15.1 H (3.8-10.6) k/uL RBC 2.88 L (4.30-5.90) m/uL Hgb 8.7 L (13.0-17.5) gm/dL Hct 28.4 L (39.0-53.0) % MCHC 30.8 L (31.0-37.0) g/dL RDW 18.6 H (11.5-15.5) % Sodium 146 H (137-145) mmol/L Potassium 3.2 L (3.5-5.1) mmol/L Chloride 109 H (98-107) mmol/L Glucose 125 H (74-99) mg/dL Calcium 8.1 L (8.4-10.2) mg/dL Assessment and Plan Plan: Severe sepsis, septic shock Lactic acidosis NAGMA Neutropenic fever Anemia SCLC Hypernatremia, improving Immunosuppressed due to chemotherapy s/p Fall at home Buttock, heel, and foot ulcer POA Hypernatremia, likely secondary to fluid resuscitation Afib, now rate controlled NSTEMI Bilateral lower extremity edema Inguinal lymphadenopathy O2 to maintain sat > or = 90% ABX per ID Hold IVF, monitor Na Increase free water intake Protein shakes Lactobacillus Lasix PT and OT Incentive spirometry and pulmonary hygiene Replace K Serial labs Rate control per cardio GI and DVT prophylaxis Plan for rehab soon
--- NOTE | 2017-02-26 10:50 | PN ---
PROGRESS NOTE DATE OF SERVICE: 02/26/2017 REASON FOR FOLLOW UP: Left foot wound and cellulitis. INTERVAL HISTORY: The patient is afebrile, has been breathing comfortably. Denies significant chest pain. No cough. No abdominal pain. He was noticed to have a blister formation on the left nunes with some redness and streaking to the medial left leg. Patient with no worsening pain in that leg, though. PHYSICAL EXAMINATION: Blood pressure 115/78 with a pulse of 81, temperature 97.9. He is 95% on 5 L nasal cannula. General description is an elderly male, lying in bed, in no distress. RESPIRATORY SYSTEM: Unlabored breathing, clear to auscultation anteriorly. HEART: S1, S2. Regular rate and rhythm. ABDOMEN: Soft, no tenderness. Left leg with a wound around the nunes and surrounding redness with streaking to the left medial thigh. LABS: Hemoglobin 8.7, white count 15.1 with a BUN of 18, creatinine 0.67. DIAGNOSTIC IMPRESSION AND PLAN: Patient left leg foot wound with secondary cellulitis. Has been on cefepime but now with worsening of the redness was noticed. Will discontinue the cefepime. Start the patient on cefazolin and Cipro, [place] the area of redness and will recommend holding the discharge for another 24 hours until we see some improvement in the patient's condition. Continue supportive care. MMODL / IJN: [id number] / MTD[facility]ances
[2017-02-26] MEDS: COLLAGENASE 250 UNIT/GM OINTMENT 30 GM TUBE TOPICAL SCH (11:45)
[2017-02-26] MEDS: CIPROFLOXACIN HCL 500 MG TAB PO SCH ×2 (11:48→22:16)
--- NOTE | 2017-02-26 14:15 | P.PN ---
Subjective Progress Note Date: 02/26/17 very pleasant gentleman was admitted for neutropenic fever and sepsis secondary to that patient also has elevated troponin for which cardiology valid the patient patient was evaluated by infectious disease as well and patient is presently on cefepime and vancomycin and patient has superficial ulceration please refer to infectious disease note. Patient is having good urine output at this time patient received Lasix today does have rhonchus breath sounds. And patient was evaluated by cardiology no further plans for any aggressive intervention at this point of time for her elevated troponins patient may have non-ST elevation myocardial infarction are elevated troponin can be chest secondary to severe sepsis. Because of severe hyponatremia patient is on half- normal saline at 50 mL per hour because of concerns of pulmonary edema 02/20/2017 Patient is not doing well patient was on Levaquin overnight patient appears to be volume depleted also received Lasix today morning. Chest x-ray did not show any volume overload. Patient was 6 L of oxygen low mean arterial pressure, patient is being managed by critical care services. Patient does have good urine output. If lactic acid is elevated patient may end up needing fluid patient is tachycardic as well he had neutropenia although improved patient is hyponatremia is bit worse. Patient patient is tachypneic as well probably due to lactic acidosis. Will need IV fluids with this can you Lasix. We will also hold off on digoxin and will obtain dig levels. Patient's IV fluids need to be increased to 200 mL per hour may even need boluses 02/21/2017 Patient denied any new complaints today. Patient was started on D5 water due to increase the sodium level. Patient was able to tolerate breakfast and lunch today. Continue his to be on broad-spectrum antibiotics. Oncology is on board. No other acute overnight issues. Lactic acidosis level improved to 2.1 10 x 12 by 2016 Patient denied any new complaints today appears to be comfortable. Potassium level came down to 2.8 today and is being replaced. Hemoglobin is fairly stable and sodium level improved from 155-147 today. Patient is being transferred to medical floor today. 02/23/2017 Patient denied any fever or chills overnight. left lower extremity swelling and redness slightly improved at leukocytosis increased to 15.5. No complaints of chest pain or short of breath. Patient was started on D5 half-normal. And assess fluid status tomorrow. 02/24/2017 Patient has significant improvement since I saw him last time saline is of the left lower extremity did improve. 02/25/2017 No overnight events patient is awaiting to be discharged to subacute rehabilitation 02/26/17 increased redness with new blister on left leg, antibiotics switched over to cefazolin as per infectious disease. Denies increased pain of extremity. Afebrile. Denies chest pain, palpitations or increased shortness of breath. Objective - Vital Signs Vital signs: Vital Signs Temp 97.8 F 02/26/17 07:00 Pulse 76 02/26/17 08:36 Resp 20 02/26/17 08:00 BP 116/78 02/26/17 07:00 Pulse Ox 95 02/26/17 07:00 Intake & Output 02/25/17 02/26/17 02/26/17 18:59 06:59 18:59 Intake Total 50 Output Total 2 Balance -2 50 Weight 97.5 kg Intake: IV 50 Cefepime 2 gm In Dextrose 50 5% in Water 50 ml @ 100 mls/hr IVPB Q12HR [facility] Rx# :[id number] Output: Urine 2 Other: Voiding Method Urinal Urinal Urinal # Voids 400 1 - Exam GENERAL: The patient is alert and oriented x3, no acute distress HEENT: Pupils are round and equally reacting to light. EOMI. No scleral icterus. No conjunctival pallor. Normocephalic, atraumatic. No pharyngeal erythema. No thyromegaly. CARDIOVASCULAR: S1 and S2 present. No murmurs, rubs, or gallops. PULMONARY: I lateral diffuse rhonchus breath sounds no wheezing was appreciated , limited air entry into bilateral lung lewis. ABDOMEN: Soft, nontender, nondistended, normoactive bowel sounds. No palpable organomegaly. MUSCULOSKELETAL: No joint swelling or deformity. EXTREMITIES: No cyanosis, clubbing, or pedal edema. Superficial ulcerations and ruptured blister previously on the left leg .Left lower extremity redness increased with new blister NEUROLOGICAL: Gross neurological examination did not reveal any focal deficits. Microbiology 02/18/17 13:14 Blood Blood Culture - Final No Growth after 144 hours 02/18/17 12:55 Blood Blood Culture - Final No Growth after 144 hours 02/18/17 17:07 Foot - Left Anaerobic Culture - Final Anaerobic Gm Negative Bacilli 02/18/17 17:07 Foot - Left Gram Stain - Final 02/18/17 17:07 Foot - Left Wound Culture - Final 02/18/17 12:55 Urine,Voided Urine Culture - Final - Labs CBC & Chem 7: 02/26/17 08:26 02/26/17 08:26 Labs: Abnormal Lab Results - Last 24 Hours (Table) 02/26/17 02/26/17 Range/Units 08:26 08:26 WBC 15.1 H (3.8-10.6) k/uL RBC 2.88 L (4.30-5.90) m/uL Hgb 8.7 L (13.0-17.5) gm/dL Hct 28.4 L (39.0-53.0) % MCHC 30.8 L (31.0-37.0) g/dL RDW 18.6 H (11.5-15.5) % Sodium 146 H (137-145) mmol/L Chloride 109 H (98-107) mmol/L Glucose 125 H (74-99) mg/dL Calcium 8.1 L (8.4-10.2) mg/dL Assessment and Plan Plan: #1 neutropenic fever and severe sepsis: Due to left lower extremity cellulitis Patient is on broad-spectrum antibiotics as mentioned above which will be continued. Patient does have severe lactic acidosis. Lactic acidosis improving. #2 elevated troponin: There is a probability of non-ST elevation myocardial infarction. related to severe sepsis itself. #3 hypernatremia: Improved D5 half-normal saline is being discontinued #4 lung cancer actively receiving chemotherapy leading to neutropenia #5 left leg ulcer superficial ulceration low suspicion this is causing infection #6 anemia of chronic disease #7 history of atrial fibrillation for which patient is also which is being continued on telemetry. On anticoagulation Plan: Continue on current medication regime ,monitoring. As mentioned above antibiotics changed to cefazolin, continue monitoring overnight for improvement with anticipated discharge to [facility] tomorrow. Follow closely with infectious disease. The impression and plan of care has been dictated as directed. : I performed a history and examination of this patient, discussed the same with the dictator. I agree with the dictator's note ,documented as a scribe. Any additional findings or plans will be noted.
[2017-02-26] MEDS: RIVAROXABAN 10 MG TAB PO SCH (18:24)
[2017-02-26] MEDS: ceFAZolin 2 GM in SODIUM CHLORIDE 0.9% 100 ML IVPB SCH (18:25)
[2017-02-27] MEDS: ceFAZolin 2 GM in SODIUM CHLORIDE 0.9% 100 ML IVPB SCH ×3 (00:29→17:01)
[2017-02-27] MEDS: methylPREDNISolone SOD SUCCI 125 MG/2 ML VIAL IV SCH ×4 (00:38→17:01)
[2017-02-27] MEDS ORDERED: PANTOPRAZOLE 40 MG TABLET PO SCH (07:30)
[2017-02-27] MEDS: LACTOBACILLUS ACIDOPH & BULGAR 1 EACH PACKET PO SCH (09:35)
[2017-02-27] MEDS: ATORVASTATIN 20 MG TAB PO SCH (09:36)
[2017-02-27] MEDS: ASPIRIN 81 MG PO SCH (09:36)
[2017-02-27] MEDS: METOPROLOL SUCCINATE (ER) 25 MG TAB.ER.24H PO SCH (09:36)
[2017-02-27] MEDS: CIPROFLOXACIN HCL 500 MG TAB PO SCH (09:36)
[2017-02-27] MEDS: BUDESONIDE 0.5 MG/2 ML NEBU INHALATION SCH (09:37)
[2017-02-27] MEDS: ALBUTEROL NEBULIZED 2.5 MG/3 ML INHALATION PRN (09:37)
--- NOTE | 2017-02-27 12:31 | P.PN ---
Subjective Progress Note Date: 02/27/17 Principal diagnosis: Septic shock Patient seen and examined. Patient states his breathing is good today. He denies any fevers or chills. He is having lower extremity pain however. The patient is currently on 5 L nasal cannula with O2 saturation 100%. Oxygen is titrated down to 2 L. The patient's oxygen saturation remains 97%. Objective - Vital Signs Vital signs: Vital Signs Temp 97.4 F L 02/27/17 07:00 Pulse 88 02/27/17 09:54 Resp 22 02/27/17 07:00 BP 106/61 02/27/17 07:00 Pulse Ox 94 L 02/27/17 09:44 Intake & Output 02/26/17 02/27/17 02/27/17 18:59 06:59 18:59 Weight 97.5 kg Other: Voiding Method Urinal Urinal # Voids 1 1 - Exam Gen: A+OX3, NAD, appears frail CV: RRR, s1/s2 Lungs: Diminished at the bases otherwise clear Abd: soft, NT/ND, +BS Ext: LLE painful to touch, bilateral edema improving - Labs CBC & Chem 7: 02/26/17 08:26 02/26/17 08:26 Assessment and Plan Plan: Severe sepsis, septic shock, resolved Lactic acidosis, resolved NAGMA, resolved Neutropenic fever, resolved Anemia SCLC Hypernatremia, improving Immunosuppressed due to chemotherapy s/p Fall at home Buttock, heel, and foot ulcer POA Hypernatremia, likely secondary to fluid resuscitation Afib, now rate controlled NSTEMI Bilateral lower extremity edema Inguinal lymphadenopathy O2 to maintain sat > or = 90% ABX per ID Hold IVF, monitor Na Increase free water intake Protein shakes Lactobacillus PT and OT Incentive spirometry and pulmonary hygiene Serial labs Rate control per cardio GI and DVT prophylaxis Plan for rehab soon Titrate oxygen down for saturation greater than or equal to 90%, decreased to 2 L nasal cannula today
--- NOTE | 2017-02-27 14:04 | P.DS ---
Providers Date of admission: 02/18/17 15:34 Expected date of discharge: 02/27/17 Attending physician: Vince Bazan Consults: 02/18/17 15:33 Consult Physician Stat Consulting Provider: Ebony Dickens Consult Reason/Comments: sepsis Do you want consulting provider notified?: Yes Consult Physician Stat Consulting Provider: Freda Araujo Consult Reason/Comments: Sepsis, [place], neutropenia, leg cellulitis, hypertension Do you want consulting provider notified?: Yes 02/18/17 15:44 Consult Physician Urgent Consulting Provider: Bishop Pedroza Consult Reason/Comments: Lung cancer, neutropenia Do you want consulting provider notified?: Yes 02/24/17 12:46 Consult Physician Routine Consulting Provider: Johnnie Romo Consult Reason/Comments: medical debility Do you want consulting provider notified?: Yes Primary care physician: Ray Garces Hospital Course: Final Diagnoses: #1 neutropenic fever and severe sepsis: Due to left lower extremity cellulitis, with lactic acidosis, resolved #2 elevated troponin: There is a probability of non-ST elevation myocardial infarction. related to severe sepsis itself. #3 hypernatremia: Improving #4 lung cancer actively receiving chemotherapy leading to neutropenia #5 left leg ulcer superficial ulceration low suspicion this is causing infection #6 anemia of chronic disease #7 history of atrial fibrillation Hospital course: This is a very pleasant gentleman was admitted for neutropenic fever and sepsis secondary to that patient also has elevated troponin for which cardiology evaluated the patient patient;no aggressive intervention at this point of time- patient may have non-ST elevation myocardial infarction are elevated troponin can be chest secondary to severe sepsis. evaluated by infectious disease as well r/t superficial ulceration please refer to infectious disease note. Treated with IV antibx. Because of severe hypernatremia patient treated with half-normal saline. Significant clinical improvement. Patient has been cleared for discharge by all consults. Patient is being discharged to [facility] in a stable condition with guarded prognosis. Microbiology 02/18/17 13:14 Blood Blood Culture - Final No Growth after 144 hours 02/18/17 12:55 Blood Blood Culture - Final No Growth after 144 hours 02/18/17 17:07 Foot - Left Anaerobic Culture - Final Anaerobic Gm Negative Bacilli 02/18/17 17:07 Foot - Left Gram Stain - Final 02/18/17 17:07 Foot - Left Wound Culture - Final 02/18/17 12:55 Urine,Voided Urine Culture - Final The impression and plan of care has been dictated as directed. : I performed a history and examination of this patient, discussed the same with the dictator. I agree with the dictator's note ,documented as a scribe. Any additional findings or plans will be noted. Patient Condition at Discharge: Stable Plan - Discharge Summary New Discharge Prescriptions: New Cephalexin [Keflex] 500 mg PO Q6HR #28 cap Ciprofloxacin HCl [Cipro] 500 mg PO BID #14 tab Albuterol Nebulized [Ventolin Nebulized] 2.5 mg INHALATION RT-Q6H neb Aspirin 81 mg PO DAILY Atorvastatin [Lipitor] 20 mg PO DAILY tab Budesonide [Pulmicort] 0.5 mg INHALATION RT-BID neb Collagenase [Santyl] 1 applic TOPICAL DAILY dose HYDROcodone/APAP 5-325MG [Mo[place] 5-325] 1 each PO Q6HR PRN #20 tab PRN Reason: Pain Lactobacillus Acidoph & Bulgar [Lactinex] 1 each PO BID packet Metoprolol Succinate (ER) [Toprol XL] 25 mg PO DAILY tab Pantoprazole [Protonix] 40 mg PO AC-BRKFST tab predniSONE 10 mg PO DIRECTED #30 tab Continue Rivaroxaban [Xarelto] 20 mg PO W/SUPPER Prochlorperazine [Compazine] 10 mg PO Q6H PRN PRN Reason: Nausea Discontinued Albuterol Sulfate [Proair Hfa] 1 - 2 puff INHALATION RT-Q6H PRN PRN Reason: Shortness Of Breath Metoprolol Succinate [Toprol XL] 100 mg PO DAILY Demeclocycline [Declomycin] 300 mg PO BID Discharge Medication List Prochlorperazine [Compazine] 10 mg PO Q6H PRN 02/18/17 [History] Rivaroxaban [Xarelto] 20 mg PO W/SUPPER 02/18/17 [History] Albuterol Nebulized [Ventolin Nebulized] 2.5 mg INHALATION RT-Q6H neb 02/27/17 [Rx] Aspirin 81 mg PO DAILY 02/27/17 [Rx] Atorvastatin [Lipitor] 20 mg PO DAILY tab 02/27/17 [Rx] Budesonide [Pulmicort] 0.5 mg INHALATION RT-BID neb 02/27/17 [Rx] Cephalexin [Keflex] 500 mg PO Q6HR #28 cap 02/27/17 [Rx] Ciprofloxacin HCl [Cipro] 500 mg PO BID #14 tab 02/27/17 [Rx] Collagenase [Santyl] 1 applic TOPICAL DAILY dose 02/27/17 [Rx] HYDROcodone/APAP 5-325MG [Mo[place] 5-325] 1 each PO Q6HR PRN #20 tab 02/27/17 [Rx] Lactobacillus Acidoph & Bulgar [Lactinex] 1 each PO BID packet 02/27/17 [Rx] Metoprolol Succinate (ER) [Toprol XL] 25 mg PO DAILY tab 02/27/17 [Rx] Pantoprazole [Protonix] 40 mg PO AC-BRKFST tab 02/27/17 [Rx] predniSONE 10 mg PO DIRECTED #30 tab 02/27/17 [Rx] Follow up Appointment(s)/Referral(s): Bishop Pedroza MD [STAFF PHYSICIAN] - 03/08/17 4:15 pm Ebony Dickens MD [STAFF PHYSICIAN] - 2 Weeks Landon Ferro [Other] - 3 Days (while at [facility]) Ray Garces DO [Primary Care Provider] - 1 Week (after dc from [facility]) Activity/Diet/Wound Care/Special Instructions: [facility] .Wound Care as per ID. DIet: cardiac Activity:as tolerated cbc,bmp in 2 days Maintain O2 sat greater than or equal to 90% as per pulmonary, currently on 2 L nasal cannula O2. Close monitoring of sodium Increase free water intake Protein shakes
[2017-02-27 14:15] VITALS: BP 100/58; PULSE 82; RESP 20; TEMP 98
[2017-02-27] MEDS: COLLAGENASE 250 UNIT/GM OINTMENT 30 GM TUBE TOPICAL SCH (14:33)
--- NOTE | 2017-02-27 15:51 | PN ---
PROGRESS NOTE DATE OF SERVICE: 02/27/17 REASON FOR FOLLOWUP: Left lower extremity wound cellulitis. INTERVAL HISTORY: The patient is afebrile , he has been breathing comfortably. Denies any chest pain, or shortness or breath, no cough, no abdominal pain. No pain in her left leg area. The redness has improved. PHYSICAL EXAMINATION: Blood pressure 100/58 with a pulse of 82, temperature 98. He is 93% on 5 L nasal cannula. General description is a middle-aged male lying in bed in no distress. Respiratory system unlabored breathing. Clear to auscultation anteriorly. Heart S1, S2. Regular rate and rhythm. Abdomen soft. No tenderness. The left foot does have a wound with some slough tissue. No surrounding redness. Left leg with a blister with surrounding redness improved. LABS: Hemoglobin 8.3, white count 15.1, BUN of 18, creatinine 0.7. DIAGNOSTIC IMPRESSION AND PLAN: Patient with left leg and foot wound cellulitis responding to cefazolin and Cipro. Plan to finish therapy with p.o. Cipro and Keflex for another 7 to 10 days. Local wound care to the left foot will be Medih[place] though the left leg should be with wet to dry dressing to keep the area off the pressure. MMODL / IJN: [id number] / [facility] HOSPITALFrances
[2017-02-27] MEDS: RIVAROXABAN 10 MG TAB PO SCH (17:01)
== END 2017-02-27 19:40 | DRG 871 ==
LOC: EC 12:04 → 6ICU 15:34 → 5ONC 02-22 12:48 → 5MS5E 02-25 19:25
PROVIDERS: ADMIT Hospitalist; ATTEND Hospitalist
DX: A41.9 Sepsis, unspecified organism (principal); I21.4 Non-ST elevation (NSTEMI) myocardial infarction; R65.21 Severe sepsis with septic shock; E46 Unspecified protein-calorie malnutrition; J18.9 Pneumonia, unspecified organism; E87.0 Hyperosmolality and hypernatremia; D70.1 Agranulocytosis secondary to cancer chemotherapy; L89.322 Pressure ulcer of left buttock, stage 2; C78.7 Secondary malignant neoplasm of liver and intrahepatic bile duct; C79.51 Secondary malignant neoplasm of bone; E87.2 Acidosis; C34.91 Malignant neoplasm of unspecified part of right bronchus or lung; E87.1 Hypo-osmolality and hyponatremia; L03.116 Cellulitis of left lower limb; D70.3 Neutropenia due to infection; I11.9 Hypertensive heart disease without heart failure; D63.0 Anemia in neoplastic disease; E78.5 Hyperlipidemia, unspecified; E87.6 Hypokalemia; E87.70 Fluid overload, unspecified; I48.0 Paroxysmal atrial fibrillation; J98.01 Acute bronchospasm; S80.822A Blister (nonthermal), left lower leg, initial encounter; T45.1X5A Adverse effect of antineoplastic and immunosuppressive drugs, initial encounter; W07.XXXA Fall from chair, initial encounter; Y92.009 Unspecified place in unspecified non-institutional (private) residence as the place of occurrence of the external cause; Z79.01 Long term (current) use of anticoagulants; Z79.82 Long term (current) use of aspirin; Z79.899 Other long term (current) drug therapy; Z85.828 Personal history of other malignant neoplasm of skin; Z86.718 Personal history of other venous thrombosis and embolism; Z87.891 Personal history of nicotine dependence; L89.609 Pressure ulcer of unspecified heel, unspecified stage
CPT/HCPCS: 36415; 71010; 71020; 80048; 80053; 80061; 80162; 80202; 81001; 82533; 82550; 82553; 83605; 83735; 84132; 84484; 85025; 85027; 85610; 85730; 87040; 87070; 87075; 87086; 87205; 87324; 87502; 93005; 93306; 94640; 94760; 96361; 96365; 96366; 99291

== ENCOUNTER 2017-03-08 17:04 | Observation (INO) | payer MEDICARE, BC ==
[2017-03-08] MEDS ORDERED: LORazepam 1 MG TAB PO PRN (18:10)
[2017-03-08] MEDS ORDERED: ATROPINE OPHTH SOLN 1% 5ML BTL SUBLINGUAL PRN (18:14)
[2017-03-08] MEDS ORDERED: ACETAMINOPHEN TAB 325 MG TAB PO PRN (18:14)
[2017-03-08] MEDS ORDERED: METOCLOPRAMIDE 10 MG TAB PO PRN (18:14)
[2017-03-08] MEDS ORDERED: SCOPOLAMINE 1.5MG/72HR PATCH TRANSDERM PRN (18:14)
[2017-03-08] MEDS ORDERED: DRY MOUTH SPRAY 44.3 SPRAY/44.3 ML SPRAY MUCOUS MEM PRN (18:14)
--- NOTE | 2017-03-08 18:18 | P.HPIM ---
History of Present Illness H&P Date: 03/08/17 Chief Complaint: malignancy pain, VONDA r/t SCLC Pt directly admitted from office, pt examined there, family discussion. Pt being admitted for symptom control and hospice consult. Pt wants to go home with hospice as soon as possible. Pt breathing is labored and he is having pain in arms and trunk. 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, removed, recent chemotherapy 2 weeks ago History of Any Multi-Drug Resistant Organisms: None Reported Additional Past Surgical History / Comment(s): cx removed from right side of face in 2014, bx to left side gums, heel spur removed left heel Past Anesthesia/Blood Transfusion Reactions: No Reported Reaction Past Psychological History: No Psychological Hx Reported Smoking Status: Former smoker Past Alcohol Use History: None Reported Past Drug Use History: None Reported - Past Family History Mother Family Medical History: Diabetes Mellitus Medications and Allergies Home Medications Medication Instructions Recorded Confirmed Type Prochlorperazine [Compazine] 10 mg PO Q6H PRN 02/18/17 02/18/17 History Rivaroxaban [Xarelto] 20 mg PO W/SUPPER 02/18/17 02/18/17 History Albuterol Nebulized [Ventolin 2.5 mg INHALATION RT-Q6H neb 02/27/17 Rx Nebulized] Aspirin 81 mg PO DAILY 02/27/17 Rx Atorvastatin [Lipitor] 20 mg PO DAILY tab 02/27/17 Rx Budesonide [Pulmicort] 0.5 mg INHALATION RT-BID neb 02/27/17 Rx Cephalexin [Keflex] 500 mg PO Q6HR #28 cap 02/27/17 Rx Ciprofloxacin HCl [Cipro] 500 mg PO BID #14 tab 02/27/17 Rx Collagenase [Santyl] 1 applic TOPICAL DAILY dose 02/27/17 Rx HYDROcodone/APAP 5-325MG [[place] 1 each PO Q6HR PRN #20 tab 02/27/17 Rx 5-325] Lactobacillus Acidoph & Bulgar 1 each PO BID packet 02/27/17 Rx [Lactinex] Metoprolol Succinate (ER) [Toprol 25 mg PO DAILY tab 02/27/17 Rx XL] Pantoprazole [Protonix] 40 mg PO AC-BRKFST tab 02/27/17 Rx predniSONE 10 mg PO DIRECTED #30 tab 02/27/17 Rx Allergies Allergy/AdvReac Type Severity Reaction Status Date / Time No Known Allergies Allergy Unverified 02/18/17 13:40 Physical Exam Vitals: Intake and Output 03/08/17 03/08/17 03/08/17 06:59 14:59 22:59 Other: Weight 93.695 kg Patient Weight 03/09/17 06:59 Weight 93.695 kg done in office Thrombosis Risk Factor Assmnt - DVT/VTE Prophylaxis DVT/VTE Prophylaxis: Contraindicated - See note (comfort measures only) Assessment and Plan (1) Comfort measures only status Narrative/Plan: Pt direct admitted for palliation of symptoms from malignancy. Hospice consulted, no invasive procedures. Current Visit: Yes Status: Acute Priority: High Code(s): Z51.5 - ENCOUNTER FOR PALLIATIVE CARE SNOMED Code(s): 93911332227342 (2) Small cell lung cancer Narrative/Plan: No further treatment, comfort measures only Current Visit: No Status: Acute Code(s): C34.90 - MALIGNANT NEOPLASM OF UNSP PART OF UNSP BRONCHUS OR LUNG SNOMED Code(s): 156428080 Plan: DC home with family and hospice as soon as able
[2017-03-09 11:19] VITALS: BMI 27.2
[2017-03-09] MEDS: MORPHINE ORAL SOLN 10 MG/5 ML CUP PO PRN (12:33)
--- NOTE | 2017-03-09 13:32 | P.PN ---
Subjective Progress Note Date: 03/09/17 Principal diagnosis: metastatic SCLC, observation for symptom management of SOB and malignancy pain until hospice consult and set up at home Pt seen today with family at bedside, he is sitting on the edge of the bed c/o generalized MS pain, denies SOB, VONDA, nausea or need to go to the bathroom. Awaiting hospice consult Objective - Vital Signs Vital signs: Intake & Output 03/08/17 03/09/17 03/09/17 18:59 06:59 18:59 Intake Total 100 200 Balance 100 200 Weight 93.695 kg 93.695 kg Intake: Oral 100 200 Other: Voiding Method Incontinent Diaper # Voids 1 1 Assessment and Plan (1) Comfort measures only status Current Visit: Yes Status: Acute Priority: High Code(s): Z51.5 - ENCOUNTER FOR PALLIATIVE CARE SNOMED Code(s): 32559187767913 (2) Small cell lung cancer Current Visit: No Status: Acute Code(s): C34.90 - MALIGNANT NEOPLASM OF UNSP PART OF UNSP BRONCHUS OR LUNG SNOMED Code(s): 327517420 Plan: Case discussed with Chief Security Officer, pt placement is observation. He will be discharged to home once everything in place for home hospice care. Cont comfort measures, titrate meds to comfort. No invasive procedures/tests
[2017-03-10] MEDS: MORPHINE ORAL SOLN 10 MG/5 ML CUP PO PRN (08:53)
--- NOTE | 2017-03-10 14:56 | P.DS ---
Providers Date of admission: 03/08/17 17:53 Expected date of discharge: 03/10/17 Attending physician: Bishop Pedroza Consults: Hospice Primary care physician: Ray Garces - Discharge Diagnosis(es) (1) Comfort measures only status Status: Acute Priority: High (2) Small cell lung cancer Status: Acute Hospital Course: Pt placed in observation for symptom management-SOB, generalized pain-of metastatic small cell lung cancer with transition to home hospice care. Hospice set up residence with necessary DME and pt was released to the care of his family, going home with the support of hospice. Pt is terminal. Pertinent Studies: none Procedures: none Patient Condition at Discharge: Poor Plan - Discharge Summary Discharge Rx Participant: No New Discharge Prescriptions: No Action Rivaroxaban [Xarelto] 20 mg PO DAILY Prochlorperazine [Compazine] 10 mg PO Q6H PRN PRN Reason: Nausea Cephalexin [Keflex] 500 mg PO Q6HR #28 cap Ciprofloxacin HCl [Cipro] 500 mg PO BID #14 tab Aspirin 81 mg PO DAILY Budesonide [Pulmicort] 0.5 mg INHALATION RT-BID neb Collagenase [Santyl] 1 applic TOPICAL DAILY dose Metoprolol Succinate (ER) [Toprol XL] 25 mg PO DAILY tab Albuterol Nebulized [Ventolin Nebulized] 2.5 mg INHALATION RT-QID Amino Acids/Protein Hydrolys [Pro-Stat Supplement] 30 ml PO BID Lactobacillus Acidophilus [Acidophilus] 1 tab PO BID Omeprazole 40 mg PO DAILY Atorvastatin [Lipitor] 20 mg PO HS HYDROcodone/APAP 5-325MG [[place] 5-325] 1 tab PO Q6HR PRN PRN Reason: Pain Pantoprazole [Protonix] 40 mg PO DAILY predniSONE See Taper PO DAILY Albuterol Nebulized [Ventolin Nebulized] 2.5 mg INHALATION RT-Q4H PRN PRN Reason: Shortness Of Breath Discharge Medication List Prochlorperazine [Compazine] 10 mg PO Q6H PRN 02/18/17 [History] Rivaroxaban [Xarelto] 20 mg PO DAILY 02/18/17 [History] Aspirin 81 mg PO DAILY 02/27/17 [Rx] Budesonide [Pulmicort] 0.5 mg INHALATION RT-BID neb 02/27/17 [Rx] Cephalexin [Keflex] 500 mg PO Q6HR #28 cap 10/17/17 [Rx] Ciprofloxacin HCl [Cipro] 500 mg PO BID #14 tab 02/27/17 [Rx] Collagenase [Santyl] 1 applic TOPICAL DAILY dose 02/27/17 [Rx] Metoprolol Succinate (ER) [Toprol XL] 25 mg PO DAILY tab 02/27/17 [Rx] Albuterol Nebulized [Ventolin Nebulized] 2.5 mg INHALATION RT-Q4H PRN 03/08/17 [ History] Albuterol Nebulized [Ventolin Nebulized] 2.5 mg INHALATION RT-QID 03/08/17 [ History] Amino Acids/Protein Hydrolys [Pro-Stat Supplement] 30 ml PO BID 03/08/17 [ History] Atorvastatin [Lipitor] 20 mg PO HS 03/08/17 [History] HYDROcodone/APAP 5-325MG [[place] 5-325] 1 tab PO Q6HR PRN 03/08/17 [History] Lactobacillus Acidophilus [Acidophilus] 1 tab PO BID 03/08/17 [History] Omeprazole 40 mg PO DAILY 03/08/17 [History] Pantoprazole [Protonix] 40 mg PO DAILY 03/08/17 [History] predniSONE See Taper PO DAILY 03/08/17 [History] Patient Instructions/Handouts: Myocardial Infarction (DC), Sepsis (GEN), Hypotension (DC) Activity/Diet/Wound Care/Special Instructions: Nurse to print off discharge instructions and send home with for hospice agency. Activity as tolerated Diet as tolerated Discharge Disposition: HOME WITH HOSPICE Pending Studies Pending Results: none
== END 2017-03-10 09:25 | disposition hospice, home (50) ==
LOC: INTOOBSV 17:53 → 5MS5E 17:53
PROVIDERS: ADMIT Internal Medicine Hematology & Oncology; ATTEND Internal Medicine Hematology & Oncology
DX: Z51.5 Encounter for palliative care (principal); G89.3 Neoplasm related pain (acute) (chronic); C34.90 Malignant neoplasm of unspecified part of unspecified bronchus or lung; C77.9 Secondary and unspecified malignant neoplasm of lymph node, unspecified; C79.51 Secondary malignant neoplasm of bone; Z85.828 Personal history of other malignant neoplasm of skin; Z87.891 Personal history of nicotine dependence; Z79.899 Other long term (current) drug therapy; Z79.82 Long term (current) use of aspirin; Z79.01 Long term (current) use of anticoagulants; Z79.52 Long term (current) use of systemic steroids
CPT/HCPCS: G0378 ×3; G0379